=== PATIENT | male | born 1960 | race Caucasian/White ===

== ENCOUNTER → 2017-06-26 | Outpatient (CLI) | payer OTHER ==
[~2017-06-26] MED LIST: CIPRO500 MG PO; CIPROFLOXACIN500 MG PO; CYCLOBENZAPRINE5 M3 PO; IBU800 M1 PO; KEFLEX500 MG PO; LIALDA1.2 GM PO; METRONIDAZOLE500 MG PO; MOTRIN800 MG PO; NAPROSYN500 MG PO; NEXIUM20 MG PO; PREDNISONE10 MG PO; PRILOSEC40 MG PO; ULTRAM50 MG PO
== END | disposition home or self-care (01) ==
LOC: RAD 15:38
DX: R06.02 Shortness of breath (principal); J98.11 Atelectasis

== ENCOUNTER 2018-03-22 19:39 | Emergency (ER) | payer OTHER ==
[~2018-03-22] VITALS: Ht 172.7 cm; Wt 81.6 kg
[2018-03-22 19:40] VITALS: BP 148/53
[2018-03-22] MEDS ORDERED: DOXYCYCLINE100 M3 PO (19:56)
== END 2018-03-22 19:58 | disposition home or self-care (01) ==
LOC: ED 19:39
DX: S40.262A Insect bite (nonvenomous) of left shoulder, initial encounter (principal); Z79.899 Other long term (current) drug therapy; W57.XXXA Bitten or stung by nonvenomous insect and other nonvenomous arthropods, initial encounter; Y93.89 Activity, other specified; Y92.89 Other specified places as the place of occurrence of the external cause; Y99.9 Unspecified external cause status

== ENCOUNTER 2018-05-16 21:24 | Emergency (ER) | payer OTHER ==
[~2018-05-16] VITALS: Ht 172.7 cm; Wt 73.9 kg
[~2018-05-16 21:24] MED LIST changes: +DOXYCYCLINE100 M3 PO
[2018-05-16 21:27] VITALS: BP 157/94
== END 2018-05-16 23:56 | disposition home or self-care (01) ==
LOC: ED 21:24
DX: S01.91XA Laceration without foreign body of unspecified part of head, initial encounter (principal); Z79.899 Other long term (current) drug therapy; W18.30XA Fall on same level, unspecified, initial encounter; Y93.89 Activity, other specified; Y92.89 Other specified places as the place of occurrence of the external cause; Y99.8 Other external cause status

== ENCOUNTER → 2018-07-13 | Outpatient (CLI) | payer OTHER ==
[~2018-07-13] MED LIST changes: +KEFLEX500 M1 PO
== END | disposition home or self-care (01) ==
LOC: US 07-01 14:00 → LAB 13:53 → US 14:00
DX: D40.0 Neoplasm of uncertain behavior of prostate (principal); I10 Essential (primary) hypertension; N28.89 Other specified disorders of kidney and ureter

== ENCOUNTER → 2018-08-03 | Outpatient (CLI) | payer OTHER ==
[2018-08-03 17:42] LABS: ALBUMIN 3.6 gm/dl (3.1-4.5); BILIRUBIN, DIRECT 1.3 mg/dL (0.0-0.2)
[2018-08-04 08:07] LABS: HEPATITIS B SURFACE AG Negative (Negative); HEPATITIS C VIRUS ANTIBODY <0.1 s/co (0.0-0.9)
[2018-08-04 09:09] LABS: AFP TUMOR MARKER 002253 2.3 ng/mL (0.0-8.3)
[2018-08-05 16:07] LABS: STRIATIONAL ANTIBODIES 160184 Negative (Neg:<1:40)
== END | disposition home or self-care (01) ==
LOC: LAB 16:31
PROVIDERS: Nurse Practitioner
DX: R74.0 Nonspecific elevation of levels of transaminase and lactic acid dehydrogenase [LDH] (principal)

== ENCOUNTER 2018-08-14 19:29 | Emergency (ER) | payer OTHER ==
[~2018-08-14] VITALS: Ht 172.7 cm; Wt 73.9 kg
[~2018-08-14 19:29] MED LIST changes: -KEFLEX500 M1 PO
[2018-08-14 20:02] LABS: HEMATOCRIT 40.6 % (42.0-52.0); MEAN CELL VOLUME 96.9 fl (80.0-94.0); MEAN CORPUSCULAR HGB 33.4 pg (27.0-31.0); MEAN CORPUSCULAR HGB CONC 34.5 g/dl (33.0-37.0); MEAN PLATELET VOLUME 10.8 fl (9.6-12.3); PLATELET COUNT AUTOMATED 377 10*3/uL (130-400); RED BLOOD COUNT 4.19 10*6/uL (4.50-5.90); WHITE BLOOD COUNT 7.7 10*3/uL (4.8-10.8)
[2018-08-14 20:18] LABS: ALBUMIN 3.1 gm/dl (3.1-4.5); ALKALINE PHOSPHATASE 296 U/L (45-117); BUN 25 mg/dl (7-24); CHLORIDE 108 mmol/L (98-107); CREATININE 1.14 mg/dL (0.70-1.30); LIPASE 3603 U/L (73-393); POTASSIUM 3.7 mmol/L (3.5-5.1); SGOT/AST 39 IU/L (3-35); SGPT/ALT 51 U/L (12-78); SODIUM 142 mmol/L (136-145); TOTAL PROTEIN 7.7 gm/dL (6.4-8.2)
[2018-08-14 20:23] LABS: PLATELET SUFFICIENCY NORMAL (NORMAL); TOTAL CELLS COUNTED 100 #CELLS
[2018-08-14 22:11] VITALS: BP 156/90
== END 2018-08-14 22:47 | disposition short-term general hospital (02) ==
LOC: ED 19:29
PROVIDERS: Emergency Medicine
DX: K85.90 Acute pancreatitis without necrosis or infection, unspecified (principal); Z79.899 Other long term (current) drug therapy; Z79.1 Long term (current) use of non-steroidal anti-inflammatories (NSAID)

== ENCOUNTER 2018-10-09 10:47 | Emergency (ER) | payer OTHER ==
[~2018-10-09] VITALS: Ht 172.7 cm; Wt 76.2 kg
[2018-10-09 10:49] VITALS: BP 166/80
[2018-10-09] MEDS ORDERED: KEFLEX500 M1 PO (10:56)
== END 2018-10-09 11:46 | disposition home or self-care (01) ==
LOC: ED 10:47
DX: S61.011A Laceration without foreign body of right thumb without damage to nail, initial encounter (principal); R03.0 Elevated blood-pressure reading, without diagnosis of hypertension; Z79.2 Long term (current) use of antibiotics; Z79.899 Other long term (current) drug therapy; W26.0XXA Contact with knife, initial encounter; Y93.89 Activity, other specified; Y92.89 Other specified places as the place of occurrence of the external cause; Y99.8 Other external cause status

== ENCOUNTER → 2019-06-14 | Outpatient (CLI) | payer OTHER ==
[~2019-06-14] MED LIST changes: +KEFLEX500 M1 PO
[2019-06-14 08:27] LABS: BASO % 0.4 % (0.0-1.0); EOS # 0.1 10*3/uL (0.0-0.4); EOS % 1.9 % (1.0-4.0); HEMATOCRIT 32.4 % (42.0-52.0); HEMOGLOBIN 10.1 g/dl (14.0-18.0); LYMPH # 0.2 10*3/uL (1.3-4.4); LYMPH % 4.2 % (27.0-41.0); MEAN CELL VOLUME 100.9 fl (80.0-94.0); MEAN CORPUSCULAR HGB 31.5 pg (27.0-31.0); MEAN CORPUSCULAR HGB CONC 31.2 g/dl (33.0-37.0); MEAN PLATELET VOLUME 9.1 fl (9.6-12.3); MONO # 0.9 10*3/uL (0.1-1.0); MONO % 17.4 % (3.0-9.0); NEUT # 3.9 10*3/uL (2.3-7.9); NEUT % 75.5 % (47.0-73.0); PLATELET COUNT AUTOMATED 398 10*3/uL (130-400); RED BLOOD COUNT 3.21 10*6/uL (4.50-5.90); RED CELL DISTRI WIDTH 18.5 % (0-14.5); WHITE BLOOD COUNT 5.2 10*3/uL (4.8-10.8)
[2019-06-14 08:41] LABS: ALBUMIN 3.7 gm/dl (3.1-4.5); ALKALINE PHOSPHATASE 118 U/L (45-117); BUN 33 mg/dl (7-24); CHLORIDE 105 mmol/L (98-107); CHOLESTEROL 169 mg/dL (<200); CREATININE 1.27 mg/dL (0.70-1.30); GAMMA GLUTAMYL TRANSPEPTIDASE 21 U/L (15-85); HDL CHOLESTEROL 30 mg/dl (40-60); LDL CHOLESTEROL 95 mg/dL (9-159); SGOT/AST 13 IU/L (3-35); SGPT/ALT 26 U/L (12-78); SODIUM 137 mmol/L (136-145); TOTAL PROTEIN 7.2 gm/dL (6.4-8.2); TRIGLYCERIDES 218 mg/dl (<150); VLDL CHOLESTEROL 44 mg/dL (6-40)
== END | disposition home or self-care (01) ==
LOC: LAB 07:47
PROVIDERS: Nurse Practitioner Acute Care
DX: Z48.23 Encounter for aftercare following liver transplant (principal); Z41.8 Encounter for other procedures for purposes other than remedying health state; K76.9 Liver disease, unspecified; E61.2 Magnesium deficiency; Z94.4 Liver transplant status

== ENCOUNTER → 2019-06-17 | Outpatient (CLI) | payer OTHER ==
[~2019-06-17] MED LIST changes: +ACYCLOVIR400 MG PO; +APRISO0.375 GM PO; +ASPIRIN CHEWABL81 MG PO; +Lovenox40 MG/0.4 SC; +MAGNESIUM OXID400 MG PO; +MYCOPHENOLATE250 MG PO; +PREDNISONE5 MG PO; +PROGRAF1 M1 PO; +PROTONIX40 MG PO; +SEPTDS PO
[2019-06-17 08:09] LABS: BASO % 0.2 % (0.0-1.0); EOS # 0.1 10*3/uL (0.0-0.4); EOS % 2.6 % (1.0-4.0); HEMATOCRIT 33.4 % (42.0-52.0); HEMOGLOBIN 10.6 g/dl (14.0-18.0); LYMPH # 0.3 10*3/uL (1.3-4.4); LYMPH % 6.9 % (27.0-41.0); MEAN CELL VOLUME 101.2 fl (80.0-94.0); MEAN CORPUSCULAR HGB 32.1 pg (27.0-31.0); MEAN CORPUSCULAR HGB CONC 31.7 g/dl (33.0-37.0); MEAN PLATELET VOLUME 8.9 fl (9.6-12.3); MONO # 0.8 10*3/uL (0.1-1.0); MONO % 18.6 % (3.0-9.0); NEUT % 71.2 % (47.0-73.0); PLATELET COUNT AUTOMATED 384 10*3/uL (130-400); RED CELL DISTRI WIDTH 18.3 % (0-14.5); WHITE BLOOD COUNT 4.2 10*3/uL (4.8-10.8)
[2019-06-17 08:35] LABS: ALBUMIN 3.6 gm/dl (3.1-4.5); CREATININE 1.53 mg/dL (0.70-1.30); PHOSPHOROUS 3.1 mg/dL (2.5-4.9); POTASSIUM 4.3 mmol/L (3.5-5.1); TOTAL PROTEIN 7.1 gm/dL (6.4-8.2)
== END | disposition home or self-care (01) ==
LOC: LAB 07:42
PROVIDERS: Nurse Practitioner Acute Care
DX: Z41.8 Encounter for other procedures for purposes other than remedying health state (principal); Z48.23 Encounter for aftercare following liver transplant; E83.30 Disorder of phosphorus metabolism, unspecified; K76.9 Liver disease, unspecified; Z94.4 Liver transplant status

== ENCOUNTER → 2019-06-21 | Outpatient (CLI) | payer OTHER ==
[~2019-06-21] MED LIST changes: -ACYCLOVIR400 MG PO; -APRISO0.375 GM PO; -ASPIRIN CHEWABL81 MG PO; -Lovenox40 MG/0.4 SC; -MAGNESIUM OXID400 MG PO; -MYCOPHENOLATE250 MG PO; -PREDNISONE5 MG PO; -PROGRAF1 M1 PO; -PROTONIX40 MG PO; -SEPTDS PO
[2019-06-21 08:45] LABS: BASO % 0.2 % (0.0-1.0); EOS # 0.1 10*3/uL (0.0-0.4); HEMATOCRIT 34.8 % (42.0-52.0); HEMOGLOBIN 10.9 g/dl (14.0-18.0); LYMPH # 0.5 10*3/uL (1.3-4.4); LYMPH % 9.2 % (27.0-41.0); MEAN CELL VOLUME 101.8 fl (80.0-94.0); MEAN CORPUSCULAR HGB 31.9 pg (27.0-31.0); MEAN CORPUSCULAR HGB CONC 31.3 g/dl (33.0-37.0); MEAN PLATELET VOLUME 9.2 fl (9.6-12.3); MONO # 0.9 10*3/uL (0.1-1.0); MONO % 17.4 % (3.0-9.0); NEUT # 3.4 10*3/uL (2.3-7.9); NEUT % 70.4 % (47.0-73.0); PLATELET COUNT AUTOMATED 405 10*3/uL (130-400); RED BLOOD COUNT 3.42 10*6/uL (4.50-5.90); WHITE BLOOD COUNT 4.9 10*3/uL (4.8-10.8)
[2019-06-21 09:11] LABS: ALBUMIN 3.4 gm/dl (3.1-4.5); ALKALINE PHOSPHATASE 101 U/L (45-117); BUN 36 mg/dl (7-24); CHLORIDE 107 mmol/L (98-107); CREATININE 1.32 mg/dL (0.70-1.30); GAMMA GLUTAMYL TRANSPEPTIDASE 17 U/L (15-85); PHOSPHOROUS 2.8 mg/dL (2.5-4.9); POTASSIUM 4.6 mmol/L (3.5-5.1); SGOT/AST 15 IU/L (3-35); SGPT/ALT 31 U/L (12-78); SODIUM 140 mmol/L (136-145)
== END | disposition home or self-care (01) ==
LOC: LAB 01:09
PROVIDERS: Nurse Practitioner Acute Care
DX: Z48.23 Encounter for aftercare following liver transplant (principal); Z41.8 Encounter for other procedures for purposes other than remedying health state; K76.9 Liver disease, unspecified; E61.2 Magnesium deficiency; R73.02 Impaired glucose tolerance (oral); Z94.4 Liver transplant status

== ENCOUNTER → 2019-06-24 | Outpatient (CLI) | payer OTHER ==
[2019-06-24 08:36] LABS: BASO % 0.2 % (0.0-1.0); EOS # 0.1 10*3/uL (0.0-0.4); EOS % 1.9 % (1.0-4.0); HEMATOCRIT 33.4 % (42.0-52.0); HEMOGLOBIN 10.6 g/dl (14.0-18.0); LYMPH # 0.4 10*3/uL (1.3-4.4); LYMPH % 8.6 % (27.0-41.0); MEAN CELL VOLUME 101.5 fl (80.0-94.0); MEAN CORPUSCULAR HGB 32.2 pg (27.0-31.0); MEAN CORPUSCULAR HGB CONC 31.7 g/dl (33.0-37.0); MEAN PLATELET VOLUME 9.1 fl (9.6-12.3); MONO # 0.7 10*3/uL (0.1-1.0); MONO % 14.9 % (3.0-9.0); NEUT # 3.4 10*3/uL (2.3-7.9); NEUT % 73.8 % (47.0-73.0); PLATELET COUNT AUTOMATED 350 10*3/uL (130-400); RED BLOOD COUNT 3.29 10*6/uL (4.50-5.90); RED CELL DISTRI WIDTH 17.4 % (0-14.5); WHITE BLOOD COUNT 4.6 10*3/uL (4.8-10.8)
[2019-06-24 08:49] LABS: ALBUMIN 3.5 gm/dl (3.1-4.5); ALKALINE PHOSPHATASE 98 U/L (45-117); BUN 28 mg/dl (7-24); CHLORIDE 107 mmol/L (98-107); CREATININE 1.36 mg/dL (0.70-1.30); GAMMA GLUTAMYL TRANSPEPTIDASE 15 U/L (15-85); PHOSPHOROUS 3.1 mg/dL (2.5-4.9); POTASSIUM 4.1 mmol/L (3.5-5.1); SGOT/AST 13 IU/L (3-35); SGPT/ALT 35 U/L (12-78); SODIUM 139 mmol/L (136-145); TOTAL PROTEIN 6.9 gm/dL (6.4-8.2)
== END | disposition home or self-care (01) ==
LOC: LAB 07:58
PROVIDERS: Nurse Practitioner Acute Care
DX: Z94.4 Liver transplant status (principal)

== ENCOUNTER → 2019-06-29 | Outpatient (CLI) | payer OTHER ==
[2019-06-29 08:40] LABS: BASO % 0.2 % (0.0-1.0); EOS # 0.1 10*3/uL (0.0-0.4); EOS % 2.1 % (1.0-4.0); HEMATOCRIT 34.4 % (42.0-52.0); LYMPH # 0.5 10*3/uL (1.3-4.4); LYMPH % 9.5 % (27.0-41.0); MEAN CELL VOLUME 101.2 fl (80.0-94.0); MEAN CORPUSCULAR HGB 32.4 pg (27.0-31.0); MEAN PLATELET VOLUME 9.2 fl (9.6-12.3); MONO # 0.8 10*3/uL (0.1-1.0); MONO % 16.4 % (3.0-9.0); NEUT # 3.4 10*3/uL (2.3-7.9); NEUT % 70.7 % (47.0-73.0); PLATELET COUNT AUTOMATED 338 10*3/uL (130-400); RED CELL DISTRI WIDTH 16.9 % (0-14.5); WHITE BLOOD COUNT 4.8 10*3/uL (4.8-10.8)
[2019-06-29 09:48] LABS: ALBUMIN 3.6 gm/dl (3.1-4.5); BUN 31 mg/dl (7-24); CHLORIDE 104 mmol/L (98-107); GAMMA GLUTAMYL TRANSPEPTIDASE 15 U/L (15-85); PHOSPHOROUS 2.9 mg/dL (2.5-4.9); POTASSIUM 4.1 mmol/L (3.5-5.1); SGOT/AST 19 IU/L (3-35); SGPT/ALT 45 U/L (12-78); SODIUM 138 mmol/L (136-145)
[2019-06-29 09:50] LABS: ALKALINE PHOSPHATASE 100 U/L (45-117)
== END | disposition home or self-care (01) ==
LOC: LAB 06-28 03:09
PROVIDERS: Nurse Practitioner Acute Care
DX: Z94.4 Liver transplant status (principal)

== ENCOUNTER → 2019-07-01 | Outpatient (CLI) | payer MEDICAID ==
[~2019-07-01] MED LIST changes: +ACYCLOVIR400 MG PO; +APRISO0.375 GM PO; +ASPIRIN CHEWABL81 MG PO; +Lovenox40 MG/0.4 SC; +MAGNESIUM OXID400 MG PO; +MYCOPHENOLATE250 MG PO; +PREDNISONE5 MG PO; +PROGRAF1 M1 PO; +PROTONIX40 MG PO; +SEPTDS PO
== END | disposition home or self-care (01) ==
LOC: LAB 01:43
DX: Z94.4 Liver transplant status (principal)

== ENCOUNTER → 2019-07-05 | Outpatient (CLI) | payer MEDICAID ==
[2019-07-05 08:58] LABS: ALBUMIN 3.7 gm/dl (3.1-4.5); ALKALINE PHOSPHATASE 105 U/L (45-117); BUN 31 mg/dl (7-24); CHLORIDE 104 mmol/L (98-107); CREATININE 1.23 mg/dL (0.70-1.30); GAMMA GLUTAMYL TRANSPEPTIDASE 18 U/L (15-85); POTASSIUM 4.5 mmol/L (3.5-5.1); SGOT/AST 17 IU/L (3-35); SGPT/ALT 49 U/L (12-78); SODIUM 138 mmol/L (136-145); TOTAL PROTEIN 7.2 gm/dL (6.4-8.2)
[2019-07-05 09:07] LABS: BASO % 0.4 % (0.0-1.0); EOS # 0.1 10*3/uL (0.0-0.4); EOS % 2.1 % (1.0-4.0); HEMATOCRIT 36.3 % (42.0-52.0); HEMOGLOBIN 11.7 g/dl (14.0-18.0); LYMPH # 0.7 10*3/uL (1.3-4.4); MEAN CELL VOLUME 99.7 fl (80.0-94.0); MEAN CORPUSCULAR HGB 32.1 pg (27.0-31.0); MEAN CORPUSCULAR HGB CONC 32.2 g/dl (33.0-37.0); MEAN PLATELET VOLUME 9.3 fl (9.6-12.3); MONO # 0.8 10*3/uL (0.1-1.0); MONO % 16.7 % (3.0-9.0); NEUT # 3.1 10*3/uL (2.3-7.9); NEUT % 64.1 % (47.0-73.0); PLATELET COUNT AUTOMATED 370 10*3/uL (130-400); RED BLOOD COUNT 3.64 10*6/uL (4.50-5.90); RED CELL DISTRI WIDTH 16.2 % (0-14.5); WHITE BLOOD COUNT 4.9 10*3/uL (4.8-10.8)
== END | disposition home or self-care (01) ==
LOC: LAB 07:51
PROVIDERS: Nurse Practitioner Acute Care
DX: Z01.812 Encounter for preprocedural laboratory examination (principal); K76.9 Liver disease, unspecified; E61.2 Magnesium deficiency; R73.02 Impaired glucose tolerance (oral); Z48.23 Encounter for aftercare following liver transplant; Z94.4 Liver transplant status

== ENCOUNTER → 2019-07-08 | Outpatient (CLI) | payer MEDICAID ==
[2019-07-08 08:26] LABS: HEMATOCRIT 32.9 % (42.0-52.0); MEAN CELL VOLUME 98.8 fl (80.0-94.0); MEAN CORPUSCULAR HGB CONC 33.4 g/dl (33.0-37.0); MEAN PLATELET VOLUME 9.2 fl (9.6-12.3); PLATELET COUNT AUTOMATED 319 10*3/uL (130-400); RED BLOOD COUNT 3.33 10*6/uL (4.50-5.90); WHITE BLOOD COUNT 5.3 10*3/uL (4.8-10.8)
[2019-07-08 08:48] LABS: TOTAL CELLS COUNTED 100 #CELLS
[2019-07-08 08:49] LABS: PLATELET SUFFICIENCY NORMAL (NORMAL)
[2019-07-08 09:31] LABS: ALBUMIN 3.4 gm/dl (3.1-4.5); ALKALINE PHOSPHATASE 90 U/L (45-117); BUN 35 mg/dl (7-24); CHLORIDE 106 mmol/L (98-107); CREATININE 1.29 mg/dL (0.70-1.30); GAMMA GLUTAMYL TRANSPEPTIDASE 10 U/L (15-85); PHOSPHOROUS 2.8 mg/dL (2.5-4.9); POTASSIUM 4.1 mmol/L (3.5-5.1); SGPT/ALT 49 U/L (12-78); SODIUM 137 mmol/L (136-145); TOTAL PROTEIN 6.7 gm/dL (6.4-8.2)
[2019-07-08 09:37] LABS: SGOT/AST 20 IU/L (3-35)
== END | disposition home or self-care (01) ==
LOC: LAB 07:56
PROVIDERS: Nurse Practitioner Acute Care
DX: Z01.812 Encounter for preprocedural laboratory examination (principal); Z01.818 Encounter for other preprocedural examination; Z48.23 Encounter for aftercare following liver transplant; E83.30 Disorder of phosphorus metabolism, unspecified; R73.02 Impaired glucose tolerance (oral); K76.9 Liver disease, unspecified; Z41.8 Encounter for other procedures for purposes other than remedying health state; Z94.4 Liver transplant status

== ENCOUNTER → 2019-07-12 | Outpatient (CLI) | payer OTHER | END | disposition home or self-care (01) | LOC: LAB 07:41 | DX: Z94.4 Liver transplant status (principal) ==

== ENCOUNTER 2019-07-14 19:24 | Emergency (ER) | payer MEDICAID ==
[~2019-07-14] VITALS: Ht 172.7 cm; Wt 59.0 kg
--- NOTE | ~2019-07-14 | EKG ---
[place], [place] ELECTROCARDIOGRAM REPORT NAME: JOSEE CORTES UNIT #: [id number] ROOM: DOCTOR: EPIPHKASANDRA DRAFT REPORT BIRTHDATE: [birth year] [facility] Test Date: 2019-07-14 Test Time: 19:33:29 Pat Name: JOSEE CORTES Department: Room: Gender: Event Decorator: : 1960 Requested By: CHALINO WEBER Order Number: [id number] Reading MD: Milena Mei MD Measurements Intervals [place] Rate: 96 P: [place]: QRS: 24 QRSD: 73 T: 36 QT: 340 QTc: 430 Interpretive Statements Sinus rhythm Normal ECG Electronically Signed On 07-19-2019 17:51:40 PDT by Milena Mei MD CM:EKGRPT:ELECTROCARDIOGRAM REPORT 32 175 CHALINO COLEMAN DRAFT REPORT CHALINO WEBER DO
[~2019-07-14 19:24] MED LIST changes: -ACYCLOVIR400 MG PO; -APRISO0.375 GM PO; -ASPIRIN CHEWABL81 MG PO; -Lovenox40 MG/0.4 SC; -MAGNESIUM OXID400 MG PO; -MYCOPHENOLATE250 MG PO; -PREDNISONE5 MG PO; -PROGRAF1 M1 PO; -PROTONIX40 MG PO; -SEPTDS PO
[2019-07-14] MEDS ORDERED: ACYCLOVIR400 MG PO (19:57)
[2019-07-14] MEDS ORDERED: ASPIRIN CHEWABL81 MG PO (19:59)
[2019-07-14] MEDS ORDERED: APRISO0.375 GM PO (19:59)
[2019-07-14] MEDS ORDERED: Lovenox40 MG/0.4 SC (20:00)
[2019-07-14] MEDS ORDERED: MAGNESIUM OXID400 MG PO (20:01)
[2019-07-14] MEDS ORDERED: MYCOPHENOLATE250 MG PO (20:02)
[2019-07-14] MEDS ORDERED: PROTONIX40 MG PO (20:03)
[2019-07-14 20:04] LABS: BASO % 0.1 % (0.0-1.0); EOS # 0.1 10*3/uL (0.0-0.4); EOS % 0.6 % (1.0-4.0); HEMATOCRIT 22.7 % (42.0-52.0); HEMOGLOBIN 7.2 g/dl (14.0-18.0); LYMPH # 0.8 10*3/uL (1.3-4.4); LYMPH % 9.5 % (27.0-41.0); MEAN CELL VOLUME 105.1 fl (80.0-94.0); MEAN CORPUSCULAR HGB 33.3 pg (27.0-31.0); MEAN CORPUSCULAR HGB CONC 31.7 g/dl (33.0-37.0); MEAN PLATELET VOLUME 9.4 fl (9.6-12.3); MONO # 0.6 10*3/uL (0.1-1.0); MONO % 6.7 % (3.0-9.0); NEUT # 6.7 10*3/uL (2.3-7.9); NEUT % 81.8 % (47.0-73.0); PLATELET COUNT AUTOMATED 321 10*3/uL (130-400); RED BLOOD COUNT 2.16 10*6/uL (4.50-5.90); RED CELL DISTRI WIDTH 16.1 % (0-14.5); WHITE BLOOD COUNT 8.2 10*3/uL (4.8-10.8)
[2019-07-14] MEDS ORDERED: PREDNISONE5 MG PO (20:04)
[2019-07-14] MEDS ORDERED: SEPTDS PO (20:07)
[2019-07-14] MEDS ORDERED: PROGRAF1 M1 PO (20:08)
[2019-07-14 20:17] LABS: ACT PARTIAL THROMBO TIME 26.3 SECONDS (20.0-32.1); INTERNATIONAL NORM RATIO 1.1 (2.0-3.5)
[2019-07-14 20:22] LABS: CREATININE 1.51 mg/dL (0.70-1.30); POTASSIUM 4.5 mmol/L (3.5-5.1); TOTAL PROTEIN 5.7 gm/dL (6.4-8.2); TROPONIN I 0.021 ng/ml (<0.045)
[2019-07-14 23:50] VITALS: BP 107/60
[2019-07-15 00:04] VITALS: BP 105/64
[2019-07-15 00:21] VITALS: BP 110/60
== END 2019-07-14 23:00 | disposition short-term general hospital (02) ==
LOC: ED 19:24
PROVIDERS: Emergency Medicine
DX: K92.2 Gastrointestinal hemorrhage, unspecified (principal); R42 Dizziness and giddiness; Z94.4 Liver transplant status; Z79.899 Other long term (current) drug therapy; Z79.82 Long term (current) use of aspirin; Z85.05 Personal history of malignant neoplasm of liver

== ENCOUNTER → 2019-07-26 | Outpatient (CLI) | payer MEDICAID ==
[~2019-07-26] MED LIST changes: +ACYCLOVIR400 MG PO; +APRISO0.375 GM PO; +ASPIRIN CHEWABL81 MG PO; +Lovenox40 MG/0.4 SC; +MAGNESIUM OXID400 MG PO; +MYCOPHENOLATE250 MG PO; +PREDNISONE5 MG PO; +PROGRAF1 M1 PO; +PROTONIX40 MG PO; +SEPTDS PO
== END | disposition home or self-care (01) ==
LOC: LAB 07:41
DX: Z94.4 Liver transplant status (principal)

== ENCOUNTER → 2019-07-29 | Outpatient (CLI) | payer OTHER ==
[2019-07-29 08:15] LABS: BASO % 0.5 % (0.0-1.0); EOS # 0.4 10*3/uL (0.0-0.4); EOS % 4.7 % (1.0-4.0); HEMATOCRIT 35.8 % (42.0-52.0); HEMOGLOBIN 11.4 g/dl (14.0-18.0); LYMPH # 1.9 10*3/uL (1.3-4.4); LYMPH % 24.2 % (27.0-41.0); MEAN CORPUSCULAR HGB 29.9 pg (27.0-31.0); MEAN CORPUSCULAR HGB CONC 31.8 g/dl (33.0-37.0); MONO # 1.1 10*3/uL (0.1-1.0); MONO % 13.1 % (3.0-9.0); NEUT # 4.6 10*3/uL (2.3-7.9); NEUT % 57.3 % (47.0-73.0); PLATELET COUNT AUTOMATED 492 10*3/uL (130-400); RED BLOOD COUNT 3.81 10*6/uL (4.50-5.90); RED CELL DISTRI WIDTH 17.5 % (0-14.5)
[2019-07-29 08:38] LABS: ALKALINE PHOSPHATASE 113 U/L (45-117); BUN 23 mg/dl (7-24); CHLORIDE 105 mmol/L (98-107); CHOLESTEROL 162 mg/dL (<200); CREATININE 1.23 mg/dL (0.70-1.30); GAMMA GLUTAMYL TRANSPEPTIDASE 37 U/L (15-85); HDL CHOLESTEROL 38 mg/dl (40-60); LDL CHOLESTEROL 100 mg/dL (9-159); PHOSPHOROUS 2.1 mg/dL (2.5-4.9); SGOT/AST 27 IU/L (3-35); SGPT/ALT 55 U/L (12-78); SODIUM 138 mmol/L (136-145); TOTAL PROTEIN 6.5 gm/dL (6.4-8.2); TRIGLYCERIDES 120 mg/dl (<150); VLDL CHOLESTEROL 24 mg/dL (6-40)
== END | disposition home or self-care (01) ==
LOC: LAB 07:48
PROVIDERS: Nurse Practitioner Acute Care
DX: Z01.812 Encounter for preprocedural laboratory examination (principal); Z01.818 Encounter for other preprocedural examination; Z48.23 Encounter for aftercare following liver transplant; Z41.8 Encounter for other procedures for purposes other than remedying health state; Z94.4 Liver transplant status; K76.9 Liver disease, unspecified; E61.2 Magnesium deficiency; R73.02 Impaired glucose tolerance (oral)

== ENCOUNTER → 2019-08-02 | Outpatient (CLI) | payer OTHER ==
[2019-08-02 09:08] LABS: BASO % 0.7 % (0.0-1.0); EOS # 0.4 10*3/uL (0.0-0.4); EOS % 6.7 % (1.0-4.0); HEMATOCRIT 36.8 % (42.0-52.0); HEMOGLOBIN 11.7 g/dl (14.0-18.0); LYMPH # 1.5 10*3/uL (1.3-4.4); LYMPH % 25.7 % (27.0-41.0); MEAN CELL VOLUME 93.6 fl (80.0-94.0); MEAN CORPUSCULAR HGB 29.8 pg (27.0-31.0); MEAN CORPUSCULAR HGB CONC 31.8 g/dl (33.0-37.0); MONO # 0.9 10*3/uL (0.1-1.0); MONO % 15.5 % (3.0-9.0); NEUT # 2.9 10*3/uL (2.3-7.9); PLATELET COUNT AUTOMATED 424 10*3/uL (130-400); RED BLOOD COUNT 3.93 10*6/uL (4.50-5.90); RED CELL DISTRI WIDTH 17.1 % (0-14.5); WHITE BLOOD COUNT 5.7 10*3/uL (4.8-10.8)
[2019-08-02 09:24] LABS: ALBUMIN 3.1 gm/dl (3.1-4.5); ALKALINE PHOSPHATASE 149 U/L (45-117); BUN 28 mg/dl (7-24); CHLORIDE 105 mmol/L (98-107); CREATININE 1.19 mg/dL (0.70-1.30); GAMMA GLUTAMYL TRANSPEPTIDASE 81 U/L (15-85); PHOSPHOROUS 2.9 mg/dL (2.5-4.9); POTASSIUM 3.7 mmol/L (3.5-5.1); SGOT/AST 75 IU/L (3-35); SGPT/ALT 124 U/L (12-78); SODIUM 137 mmol/L (136-145); TOTAL PROTEIN 6.8 gm/dL (6.4-8.2)
== END | disposition home or self-care (01) ==
LOC: LAB 08:07
PROVIDERS: Nurse Practitioner Acute Care
DX: Z48.23 Encounter for aftercare following liver transplant (principal); Z41.8 Encounter for other procedures for purposes other than remedying health state; K76.9 Liver disease, unspecified; E61.2 Magnesium deficiency; R73.09 Other abnormal glucose

== ENCOUNTER → 2019-08-11 | Outpatient (CLI) | payer OTHER ==
[2019-08-11 08:49] LABS: BASO # 0.1 10*3/uL (0.0-0.1); BASO % 0.7 % (0.0-1.0); EOS # 0.5 10*3/uL (0.0-0.4); EOS % 6.6 % (1.0-4.0); HEMATOCRIT 36.9 % (42.0-52.0); HEMOGLOBIN 11.8 g/dl (14.0-18.0); LYMPH # 1.7 10*3/uL (1.3-4.4); LYMPH % 22.7 % (27.0-41.0); MEAN CELL VOLUME 96.1 fl (80.0-94.0); MEAN CORPUSCULAR HGB 30.7 pg (27.0-31.0); MEAN PLATELET VOLUME 9.6 fl (9.6-12.3); MONO % 13.7 % (3.0-9.0); NEUT # 4.2 10*3/uL (2.3-7.9); NEUT % 55.6 % (47.0-73.0); PLATELET COUNT AUTOMATED 336 10*3/uL (130-400); RED BLOOD COUNT 3.84 10*6/uL (4.50-5.90); RED CELL DISTRI WIDTH 18.2 % (0-14.5); WHITE BLOOD COUNT 7.6 10*3/uL (4.8-10.8)
[2019-08-11 09:23] LABS: ALBUMIN 3.2 gm/dl (3.1-4.5); BUN 23 mg/dl (7-24); CHLORIDE 108 mmol/L (98-107); CREATININE 1.07 mg/dL (0.70-1.30); GAMMA GLUTAMYL TRANSPEPTIDASE 330 U/L (15-85); PHOSPHOROUS 3.4 mg/dL (2.5-4.9); POTASSIUM 3.7 mmol/L (3.5-5.1); SGOT/AST 453 IU/L (3-35); SGPT/ALT 792 U/L (12-78); SODIUM 140 mmol/L (136-145); TOTAL PROTEIN 6.8 gm/dL (6.4-8.2)
[2019-08-11 09:25] LABS: ALKALINE PHOSPHATASE 353 U/L (45-117)
== END | disposition home or self-care (01) ==
LOC: LAB 07:53
PROVIDERS: Nurse Practitioner Acute Care
DX: Z94.4 Liver transplant status (principal)

== ENCOUNTER → 2019-08-16 | Outpatient (CLI) | payer OTHER ==
[2019-08-16 09:15] LABS: BASO % 0.2 % (0.0-1.0); EOS % 0.1 % (1.0-4.0); HEMATOCRIT 39.4 % (42.0-52.0); HEMOGLOBIN 12.5 g/dl (14.0-18.0); LYMPH # 1.8 10*3/uL (1.3-4.4); LYMPH % 14.3 % (27.0-41.0); MEAN CELL VOLUME 96.1 fl (80.0-94.0); MEAN CORPUSCULAR HGB 30.5 pg (27.0-31.0); MEAN CORPUSCULAR HGB CONC 31.7 g/dl (33.0-37.0); MEAN PLATELET VOLUME 9.6 fl (9.6-12.3); MONO # 1.1 10*3/uL (0.1-1.0); NEUT # 9.2 10*3/uL (2.3-7.9); NEUT % 75.3 % (47.0-73.0); PLATELET COUNT AUTOMATED 468 10*3/uL (130-400); RED CELL DISTRI WIDTH 18.5 % (0-14.5); WHITE BLOOD COUNT 12.2 10*3/uL (4.8-10.8)
[2019-08-16 09:18] LABS: ALBUMIN 3.1 gm/dl (3.1-4.5); BUN 33 mg/dl (7-24); CHLORIDE 110 mmol/L (98-107); CHOLESTEROL 192 mg/dL (<200); CREATININE 1.02 mg/dL (0.70-1.30); GAMMA GLUTAMYL TRANSPEPTIDASE 379 U/L (15-85); HDL CHOLESTEROL 47 mg/dl (40-60); LDL CHOLESTEROL 123 mg/dL (9-159); SGOT/AST 224 IU/L (3-35); SGPT/ALT 726 U/L (12-78); SODIUM 141 mmol/L (136-145); TOTAL PROTEIN 7.1 gm/dL (6.4-8.2); TRIGLYCERIDES 109 mg/dl (<150); VLDL CHOLESTEROL 22 mg/dL (6-40)
[2019-08-16 09:19] LABS: ALKALINE PHOSPHATASE 326 U/L (45-117)
== END | disposition home or self-care (01) ==
LOC: LAB 07:48
PROVIDERS: Nurse Practitioner Acute Care
DX: Z94.4 Liver transplant status (principal)

== ENCOUNTER → 2019-08-19 | Outpatient (CLI) | payer OTHER ==
[2019-08-19 08:11] LABS: BASO % 0.1 % (0.0-1.0); HEMATOCRIT 37.5 % (42.0-52.0); LYMPH # 1.8 10*3/uL (1.3-4.4); LYMPH % 14.1 % (27.0-41.0); MEAN CELL VOLUME 97.2 fl (80.0-94.0); MEAN CORPUSCULAR HGB 31.1 pg (27.0-31.0); MEAN PLATELET VOLUME 9.3 fl (9.6-12.3); MONO # 1.2 10*3/uL (0.1-1.0); MONO % 9.4 % (3.0-9.0); NEUT # 9.6 10*3/uL (2.3-7.9); NEUT % 74.8 % (47.0-73.0); PLATELET COUNT AUTOMATED 431 10*3/uL (130-400); RED BLOOD COUNT 3.86 10*6/uL (4.50-5.90); RED CELL DISTRI WIDTH 18.6 % (0-14.5); WHITE BLOOD COUNT 12.9 10*3/uL (4.8-10.8)
[2019-08-19 08:44] LABS: ALBUMIN 2.9 gm/dl (3.1-4.5); ALKALINE PHOSPHATASE 264 U/L (45-117); BUN 35 mg/dl (7-24); CHLORIDE 110 mmol/L (98-107); CREATININE 1.09 mg/dL (0.70-1.30); GAMMA GLUTAMYL TRANSPEPTIDASE 400 U/L (15-85); PHOSPHOROUS 3.1 mg/dL (2.5-4.9); POTASSIUM 4.1 mmol/L (3.5-5.1); SGOT/AST 168 IU/L (3-35); SGPT/ALT 578 U/L (12-78); SODIUM 142 mmol/L (136-145); TOTAL PROTEIN 6.5 gm/dL (6.4-8.2)
== END | disposition home or self-care (01) ==
LOC: LAB 07:43
PROVIDERS: Nurse Practitioner Acute Care
DX: E61.2 Magnesium deficiency (principal); K76.9 Liver disease, unspecified; R73.02 Impaired glucose tolerance (oral); Z94.4 Liver transplant status

== ENCOUNTER → 2019-08-23 | Outpatient (CLI) | payer OTHER ==
[2019-08-23 08:15] LABS: HEMATOCRIT 34.1 % (42.0-52.0); MEAN CELL VOLUME 98.3 fl (80.0-94.0); MEAN CORPUSCULAR HGB 31.7 pg (27.0-31.0); MEAN CORPUSCULAR HGB CONC 32.3 g/dl (33.0-37.0); MEAN PLATELET VOLUME 10.1 fl (9.6-12.3); PLATELET COUNT AUTOMATED 347 10*3/uL (130-400); RED BLOOD COUNT 3.47 10*6/uL (4.50-5.90); RED CELL DISTRI WIDTH 18.7 % (0-14.5); WHITE BLOOD COUNT 15.5 10*3/uL (4.8-10.8)
[2019-08-23 08:30] LABS: ALBUMIN 2.7 gm/dl (3.1-4.5); ALKALINE PHOSPHATASE 197 U/L (45-117); BUN 40 mg/dl (7-24); CHLORIDE 110 mmol/L (98-107); CREATININE 1.04 mg/dL (0.70-1.30); GAMMA GLUTAMYL TRANSPEPTIDASE 451 U/L (15-85); PHOSPHOROUS 2.7 mg/dL (2.5-4.9); POTASSIUM 5.1 mmol/L (3.5-5.1); SGOT/AST 135 IU/L (3-35); SGPT/ALT 542 U/L (12-78); SODIUM 140 mmol/L (136-145); TOTAL PROTEIN 5.7 gm/dL (6.4-8.2)
[2019-08-23 09:53] LABS: PLATELET SUFFICIENCY NORMAL (NORMAL); TOTAL CELLS COUNTED 100 #CELLS
== END | disposition home or self-care (01) ==
LOC: LAB 07:48
PROVIDERS: Nurse Practitioner Acute Care
DX: Z48.23 Encounter for aftercare following liver transplant (principal); Z41.8 Encounter for other procedures for purposes other than remedying health state; K76.9 Liver disease, unspecified; E61.2 Magnesium deficiency; R73.02 Impaired glucose tolerance (oral); Z94.4 Liver transplant status

== ENCOUNTER → 2019-08-30 | Outpatient (CLI) | payer MEDICAID ==
[2019-08-30 09:42] LABS: ALKALINE PHOSPHATASE 212 U/L (45-117); BUN 28 mg/dl (7-24); CHLORIDE 107 mmol/L (98-107); GAMMA GLUTAMYL TRANSPEPTIDASE 409 U/L (15-85); PHOSPHOROUS 2.9 mg/dL (2.5-4.9); POTASSIUM 5.1 mmol/L (3.5-5.1); SGOT/AST 134 IU/L (3-35); SGPT/ALT 420 U/L (12-78); SODIUM 138 mmol/L (136-145); TOTAL PROTEIN 6.3 gm/dL (6.4-8.2)
[2019-08-30 09:47] LABS: BASO % 0.1 % (0.0-1.0); EOS % 0.1 % (1.0-4.0); HEMATOCRIT 28.9 % (42.0-52.0); LYMPH # 1.3 10*3/uL (1.3-4.4); LYMPH % 9.4 % (27.0-41.0); MEAN CELL VOLUME 100.3 fl (80.0-94.0); MEAN CORPUSCULAR HGB 31.3 pg (27.0-31.0); MEAN CORPUSCULAR HGB CONC 31.1 g/dl (33.0-37.0); NEUT # 11.7 10*3/uL (2.3-7.9); NEUT % 82.8 % (47.0-73.0); PLATELET COUNT AUTOMATED 361 10*3/uL (130-400); RED BLOOD COUNT 2.88 10*6/uL (4.50-5.90); RED CELL DISTRI WIDTH 17.6 % (0-14.5); WHITE BLOOD COUNT 14.1 10*3/uL (4.8-10.8)
== END | disposition home or self-care (01) ==
LOC: LAB 08:02
PROVIDERS: Nurse Practitioner Acute Care
DX: Z94.4 Liver transplant status (principal)

== ENCOUNTER → 2019-09-01 | Outpatient (CLI) | payer MEDICAID ==
[2019-09-01 08:19] LABS: BASO % 0.1 % (0.0-1.0); EOS % 0.1 % (1.0-4.0); HEMATOCRIT 29.9 % (42.0-52.0); HEMOGLOBIN 9.3 g/dl (14.0-18.0); LYMPH # 2.4 10*3/uL (1.3-4.4); LYMPH % 17.7 % (27.0-41.0); MEAN CELL VOLUME 99.7 fl (80.0-94.0); MEAN CORPUSCULAR HGB CONC 31.1 g/dl (33.0-37.0); MEAN PLATELET VOLUME 9.7 fl (9.6-12.3); MONO # 1.1 10*3/uL (0.1-1.0); MONO % 7.8 % (3.0-9.0); NEUT # 9.9 10*3/uL (2.3-7.9); NEUT % 73.9 % (47.0-73.0); PLATELET COUNT AUTOMATED 373 10*3/uL (130-400); RED CELL DISTRI WIDTH 17.2 % (0-14.5); WHITE BLOOD COUNT 13.4 10*3/uL (4.8-10.8)
[2019-09-01 08:40] LABS: ALBUMIN 3.1 gm/dl (3.1-4.5); ALKALINE PHOSPHATASE 183 U/L (45-117); BUN 35 mg/dl (7-24); CHLORIDE 109 mmol/L (98-107); CREATININE 1.23 mg/dL (0.70-1.30); GAMMA GLUTAMYL TRANSPEPTIDASE 370 U/L (15-85); PHOSPHOROUS 2.5 mg/dL (2.5-4.9); POTASSIUM 4.4 mmol/L (3.5-5.1); SGOT/AST 65 IU/L (3-35); SGPT/ALT 283 U/L (12-78); SODIUM 141 mmol/L (136-145); TOTAL PROTEIN 6.3 gm/dL (6.4-8.2)
== END | disposition home or self-care (01) ==
LOC: LAB 07:49
PROVIDERS: Nurse Practitioner Acute Care
DX: E61.2 Magnesium deficiency (principal); R73.02 Impaired glucose tolerance (oral); K76.9 Liver disease, unspecified; Z94.4 Liver transplant status; Z48.23 Encounter for aftercare following liver transplant

== ENCOUNTER → 2019-09-06 | Outpatient (CLI) | payer MEDICAID ==
[2019-09-06 09:01] LABS: BASO % 0.1 % (0.0-1.0); EOS # 0.1 10*3/uL (0.0-0.4); EOS % 0.7 % (1.0-4.0); HEMATOCRIT 29.6 % (42.0-52.0); HEMOGLOBIN 8.9 g/dl (14.0-18.0); LYMPH # 2.2 10*3/uL (1.3-4.4); LYMPH % 22.7 % (27.0-41.0); MEAN CORPUSCULAR HGB 29.5 pg (27.0-31.0); MEAN CORPUSCULAR HGB CONC 30.1 g/dl (33.0-37.0); MEAN PLATELET VOLUME 9.6 fl (9.6-12.3); MONO # 0.9 10*3/uL (0.1-1.0); MONO % 9.2 % (3.0-9.0); NEUT # 6.3 10*3/uL (2.3-7.9); NEUT % 66.7 % (47.0-73.0); PLATELET COUNT AUTOMATED 432 10*3/uL (130-400); RED BLOOD COUNT 3.02 10*6/uL (4.50-5.90); RED CELL DISTRI WIDTH 16.7 % (0-14.5); WHITE BLOOD COUNT 9.5 10*3/uL (4.8-10.8)
[2019-09-06 09:14] LABS: ALBUMIN 2.8 gm/dl (3.1-4.5); ALKALINE PHOSPHATASE 161 U/L (45-117); BUN 41 mg/dl (7-24); CHLORIDE 113 mmol/L (98-107); CREATININE 1.13 mg/dL (0.70-1.30); PHOSPHOROUS 2.3 mg/dL (2.5-4.9); SGOT/AST 61 IU/L (3-35); SGPT/ALT 206 U/L (12-78); SODIUM 144 mmol/L (136-145); TOTAL PROTEIN 5.7 gm/dL (6.4-8.2)
[2019-09-06 09:15] LABS: GAMMA GLUTAMYL TRANSPEPTIDASE 353 U/L (15-85)
== END | disposition home or self-care (01) ==
LOC: LAB 07:46
PROVIDERS: Nurse Practitioner Acute Care
DX: Z94.4 Liver transplant status (principal)

== ENCOUNTER → 2019-09-09 | Outpatient (CLI) | payer MEDICAID ==
[2019-09-09 08:13] LABS: EOS # 0.1 10*3/uL (0.0-0.4); EOS % 0.9 % (1.0-4.0); HEMATOCRIT 28.1 % (42.0-52.0); HEMOGLOBIN 8.8 g/dl (14.0-18.0); LYMPH # 1.9 10*3/uL (1.3-4.4); LYMPH % 21.2 % (27.0-41.0); MEAN CELL VOLUME 97.2 fl (80.0-94.0); MEAN CORPUSCULAR HGB 30.4 pg (27.0-31.0); MEAN CORPUSCULAR HGB CONC 31.3 g/dl (33.0-37.0); MEAN PLATELET VOLUME 9.1 fl (9.6-12.3); MONO # 0.8 10*3/uL (0.1-1.0); MONO % 8.9 % (3.0-9.0); NEUT % 68.2 % (47.0-73.0); PLATELET COUNT AUTOMATED 368 10*3/uL (130-400); RED BLOOD COUNT 2.89 10*6/uL (4.50-5.90); RED CELL DISTRI WIDTH 16.6 % (0-14.5); WHITE BLOOD COUNT 8.9 10*3/uL (4.8-10.8)
[2019-09-09 08:45] LABS: ALBUMIN 2.8 gm/dl (3.1-4.5); BUN 35 mg/dl (7-24); CHLORIDE 113 mmol/L (98-107); CREATININE 1.16 mg/dL (0.70-1.30); GAMMA GLUTAMYL TRANSPEPTIDASE 337 U/L (15-85); POTASSIUM 4.1 mmol/L (3.5-5.1); SGOT/AST 48 IU/L (3-35); SGPT/ALT 184 U/L (12-78); SODIUM 145 mmol/L (136-145)
[2019-09-09 08:49] LABS: ALKALINE PHOSPHATASE 150 U/L (45-117); PHOSPHOROUS 2.2 mg/dL (2.5-4.9); TOTAL PROTEIN 5.7 gm/dL (6.4-8.2)
== END | disposition home or self-care (01) ==
LOC: LAB 07:45
PROVIDERS: Nurse Practitioner Acute Care
DX: Z94.4 Liver transplant status (principal)

== ENCOUNTER → 2019-09-13 | Outpatient (CLI) | payer MEDICAID ==
[2019-09-13 08:17] LABS: EOS # 0.1 10*3/uL (0.0-0.4); HEMOGLOBIN 9.7 g/dl (14.0-18.0); LYMPH # 1.5 10*3/uL (1.3-4.4); LYMPH % 18.6 % (27.0-41.0); MEAN CELL VOLUME 96.4 fl (80.0-94.0); MEAN CORPUSCULAR HGB 29.2 pg (27.0-31.0); MEAN CORPUSCULAR HGB CONC 30.3 g/dl (33.0-37.0); MEAN PLATELET VOLUME 9.5 fl (9.6-12.3); MONO # 0.9 10*3/uL (0.1-1.0); MONO % 10.5 % (3.0-9.0); NEUT # 5.6 10*3/uL (2.3-7.9); NEUT % 68.4 % (47.0-73.0); PLATELET COUNT AUTOMATED 396 10*3/uL (130-400); RED BLOOD COUNT 3.32 10*6/uL (4.50-5.90); RED CELL DISTRI WIDTH 16.2 % (0-14.5); WHITE BLOOD COUNT 8.1 10*3/uL (4.8-10.8)
[2019-09-13 08:37] LABS: BUN 29 mg/dl (7-24); CHLORIDE 110 mmol/L (98-107); CREATININE 1.11 mg/dL (0.70-1.30); GAMMA GLUTAMYL TRANSPEPTIDASE 314 U/L (15-85); PHOSPHOROUS 2.3 mg/dL (2.5-4.9); POTASSIUM 4.1 mmol/L (3.5-5.1); SGOT/AST 47 IU/L (3-35); SGPT/ALT 141 U/L (12-78); SODIUM 143 mmol/L (136-145); TOTAL PROTEIN 5.9 gm/dL (6.4-8.2)
[2019-09-13 08:38] LABS: ALKALINE PHOSPHATASE 145 U/L (45-117)
== END | disposition home or self-care (01) ==
LOC: LAB 07:46
PROVIDERS: Nurse Practitioner Acute Care
DX: Z94.4 Liver transplant status (principal)

== ENCOUNTER → 2019-09-16 | Outpatient (CLI) | payer MEDICAID ==
[2019-09-16 08:50] LABS: EOS % 0.5 % (1.0-4.0); HEMATOCRIT 28.9 % (42.0-52.0); HEMOGLOBIN 8.6 g/dl (14.0-18.0); LYMPH # 1.7 10*3/uL (1.3-4.4); LYMPH % 19.4 % (27.0-41.0); MEAN CELL VOLUME 94.8 fl (80.0-94.0); MEAN CORPUSCULAR HGB 28.2 pg (27.0-31.0); MEAN CORPUSCULAR HGB CONC 29.8 g/dl (33.0-37.0); MEAN PLATELET VOLUME 9.7 fl (9.6-12.3); MONO % 11.5 % (3.0-9.0); NEUT # 5.9 10*3/uL (2.3-7.9); NEUT % 67.5 % (47.0-73.0); PLATELET COUNT AUTOMATED 385 10*3/uL (130-400); RED BLOOD COUNT 3.05 10*6/uL (4.50-5.90); WHITE BLOOD COUNT 8.8 10*3/uL (4.8-10.8)
[2019-09-16 09:16] LABS: ALBUMIN 2.9 gm/dl (3.1-4.5); ALKALINE PHOSPHATASE 134 U/L (45-117); BUN 33 mg/dl (7-24); CHLORIDE 109 mmol/L (98-107); GAMMA GLUTAMYL TRANSPEPTIDASE 271 U/L (15-85); PHOSPHOROUS 2.9 mg/dL (2.5-4.9); SGOT/AST 37 IU/L (3-35); SGPT/ALT 115 U/L (12-78); SODIUM 143 mmol/L (136-145); TOTAL PROTEIN 5.8 gm/dL (6.4-8.2)
== END | disposition home or self-care (01) ==
LOC: LAB 08:04
PROVIDERS: Nurse Practitioner Acute Care
DX: Z01.818 Encounter for other preprocedural examination (principal); Z41.8 Encounter for other procedures for purposes other than remedying health state; Z48.23 Encounter for aftercare following liver transplant; K76.9 Liver disease, unspecified; R73.02 Impaired glucose tolerance (oral); Z94.4 Liver transplant status

== ENCOUNTER → 2019-09-20 | Outpatient (CLI) | payer MEDICAID ==
[2019-09-20 08:23] LABS: BASO % 0.1 % (0.0-1.0); EOS % 0.5 % (1.0-4.0); HEMATOCRIT 32.5 % (42.0-52.0); HEMOGLOBIN 9.8 g/dl (14.0-18.0); LYMPH # 1.8 10*3/uL (1.3-4.4); LYMPH % 21.5 % (27.0-41.0); MEAN CELL VOLUME 93.1 fl (80.0-94.0); MEAN CORPUSCULAR HGB 28.1 pg (27.0-31.0); MEAN CORPUSCULAR HGB CONC 30.2 g/dl (33.0-37.0); MEAN PLATELET VOLUME 9.5 fl (9.6-12.3); NEUT # 5.2 10*3/uL (2.3-7.9); NEUT % 63.1 % (47.0-73.0); PLATELET COUNT AUTOMATED 422 10*3/uL (130-400); RED BLOOD COUNT 3.49 10*6/uL (4.50-5.90); RED CELL DISTRI WIDTH 15.7 % (0-14.5); WHITE BLOOD COUNT 8.2 10*3/uL (4.8-10.8)
[2019-09-20 08:49] LABS: ALKALINE PHOSPHATASE 123 U/L (45-117); BUN 25 mg/dl (7-24); CHLORIDE 108 mmol/L (98-107); CREATININE 1.25 mg/dL (0.70-1.30); GAMMA GLUTAMYL TRANSPEPTIDASE 256 U/L (15-85); PHOSPHOROUS 1.9 mg/dL (2.5-4.9); SGOT/AST 40 IU/L (3-35); SGPT/ALT 110 U/L (12-78); SODIUM 142 mmol/L (136-145)
== END | disposition home or self-care (01) ==
LOC: LAB 00:58
PROVIDERS: Nurse Practitioner Acute Care
DX: Z48.23 Encounter for aftercare following liver transplant (principal); Z41.8 Encounter for other procedures for purposes other than remedying health state; E83.30 Disorder of phosphorus metabolism, unspecified; K76.9 Liver disease, unspecified; R73.02 Impaired glucose tolerance (oral); Z94.4 Liver transplant status

== ENCOUNTER → 2019-09-24 | Outpatient (CLI) | payer MEDICAID ==
[2019-09-24 08:09] LABS: HEMATOCRIT 33.2 % (42.0-52.0); HEMOGLOBIN 9.9 g/dl (14.0-18.0); MEAN CELL VOLUME 92.2 fl (80.0-94.0); MEAN CORPUSCULAR HGB 27.5 pg (27.0-31.0); MEAN CORPUSCULAR HGB CONC 29.8 g/dl (33.0-37.0); MEAN PLATELET VOLUME 9.4 fl (9.6-12.3); PLATELET COUNT AUTOMATED 407 10*3/uL (130-400); RED CELL DISTRI WIDTH 15.6 % (0-14.5); WHITE BLOOD COUNT 6.8 10*3/uL (4.8-10.8)
[2019-09-24 08:27] LABS: ALBUMIN 3.2 gm/dl (3.1-4.5); BUN 26 mg/dl (7-24); CHLORIDE 111 mmol/L (98-107); CREATININE 1.18 mg/dL (0.70-1.30); GAMMA GLUTAMYL TRANSPEPTIDASE 251 U/L (15-85); PHOSPHOROUS 2.1 mg/dL (2.5-4.9); POTASSIUM 4.2 mmol/L (3.5-5.1); SGOT/AST 50 IU/L (3-35); SGPT/ALT 100 U/L (12-78); SODIUM 142 mmol/L (136-145); TOTAL PROTEIN 6.3 gm/dL (6.4-8.2)
[2019-09-24 08:29] LABS: ALKALINE PHOSPHATASE 119 U/L (45-117)
[2019-09-24 08:30] LABS: PLATELET SUFFICIENCY HIGH (NORMAL); POLYCHROMASIA SLIGHT; TOTAL CELLS COUNTED 100 #CELLS
== END | disposition home or self-care (01) ==
LOC: LAB 09-23 09:32
PROVIDERS: Nurse Practitioner Acute Care
DX: K76.9 Liver disease, unspecified (principal); Z94.4 Liver transplant status; Z48.23 Encounter for aftercare following liver transplant; Z41.8 Encounter for other procedures for purposes other than remedying health state; E61.2 Magnesium deficiency; R73.02 Impaired glucose tolerance (oral)

== ENCOUNTER → 2019-09-27 | Outpatient (CLI) | payer MEDICAID ==
[2019-09-27 09:11] LABS: HEMATOCRIT 34.1 % (42.0-52.0); MEAN CELL VOLUME 93.4 fl (80.0-94.0); MEAN CORPUSCULAR HGB 27.4 pg (27.0-31.0); MEAN CORPUSCULAR HGB CONC 29.3 g/dl (33.0-37.0); MEAN PLATELET VOLUME 9.9 fl (9.6-12.3); PLATELET COUNT AUTOMATED 411 10*3/uL (130-400); RED BLOOD COUNT 3.65 10*6/uL (4.50-5.90); RED CELL DISTRI WIDTH 15.7 % (0-14.5); WHITE BLOOD COUNT 7.6 10*3/uL (4.8-10.8)
[2019-09-27 09:13] LABS: BUN 24 mg/dl (7-24); CHLORIDE 108 mmol/L (98-107); CREATININE 1.11 mg/dL (0.70-1.30); GAMMA GLUTAMYL TRANSPEPTIDASE 230 U/L (15-85); PHOSPHOROUS 2.3 mg/dL (2.5-4.9); POTASSIUM 4.3 mmol/L (3.5-5.1); SGOT/AST 40 IU/L (3-35); SGPT/ALT 94 U/L (12-78); SODIUM 141 mmol/L (136-145); TOTAL PROTEIN 6.2 gm/dL (6.4-8.2)
[2019-09-27 09:16] LABS: ALKALINE PHOSPHATASE 118 U/L (45-117)
[2019-09-27 09:34] LABS: PLATELET SUFFICIENCY HIGH (NORMAL); POLYCHROMASIA SLIGHT; ROULEAUX SLIGHT; TARGET CELLS FEW; TOTAL CELLS COUNTED 100 #CELLS
[2019-09-27 09:35] LABS: TOXIC GRANULATION SLIGHT
== END | disposition home or self-care (01) ==
LOC: LAB 07:58
PROVIDERS: Nurse Practitioner Acute Care
DX: Z94.4 Liver transplant status (principal)

== ENCOUNTER → 2019-09-30 | Outpatient (CLI) | payer MEDICAID ==
[2019-09-30 08:49] LABS: HEMOGLOBIN 9.9 g/dl (14.0-18.0); MEAN CELL VOLUME 91.7 fl (80.0-94.0); MEAN CORPUSCULAR HGB 27.5 pg (27.0-31.0); MEAN PLATELET VOLUME 9.9 fl (9.6-12.3); PLATELET COUNT AUTOMATED 408 10*3/uL (130-400); RED CELL DISTRI WIDTH 15.6 % (0-14.5); WHITE BLOOD COUNT 10.2 10*3/uL (4.8-10.8)
[2019-09-30 09:17] LABS: ALBUMIN 3.3 gm/dl (3.1-4.5); ALKALINE PHOSPHATASE 115 U/L (45-117); BUN 32 mg/dl (7-24); CHLORIDE 109 mmol/L (98-107); CREATININE 1.22 mg/dL (0.70-1.30); GAMMA GLUTAMYL TRANSPEPTIDASE 222 U/L (15-85); PHOSPHOROUS 2.1 mg/dL (2.5-4.9); PLATELET SUFFICIENCY HIGH (NORMAL); POLYCHROMASIA SLIGHT; POTASSIUM 3.9 mmol/L (3.5-5.1); SCHISTOCYTES FEW; SGOT/AST 40 IU/L (3-35); SGPT/ALT 91 U/L (12-78); SODIUM 143 mmol/L (136-145); TOTAL CELLS COUNTED 100 #CELLS; TOTAL PROTEIN 6.6 gm/dL (6.4-8.2); TOXIC GRANULATION SLIGHT
== END | disposition home or self-care (01) ==
LOC: LAB 00:06
PROVIDERS: Nurse Practitioner Acute Care
DX: Z94.4 Liver transplant status (principal)

== ENCOUNTER → 2019-10-04 | Outpatient (CLI) | payer MEDICAID ==
[2019-10-04 09:05] LABS: HEMATOCRIT 34.6 % (42.0-52.0); HEMOGLOBIN 10.1 g/dl (14.0-18.0); MEAN CELL VOLUME 90.1 fl (80.0-94.0); MEAN CORPUSCULAR HGB 26.3 pg (27.0-31.0); MEAN CORPUSCULAR HGB CONC 29.2 g/dl (33.0-37.0); PLATELET COUNT AUTOMATED 439 10*3/uL (130-400); RED BLOOD COUNT 3.84 10*6/uL (4.50-5.90); RED CELL DISTRI WIDTH 15.8 % (0-14.5); WHITE BLOOD COUNT 9.5 10*3/uL (4.8-10.8)
[2019-10-04 09:31] LABS: ALBUMIN 3.1 gm/dl (3.1-4.5); ALKALINE PHOSPHATASE 99 U/L (45-117); BUN 29 mg/dl (7-24); CHLORIDE 109 mmol/L (98-107); CREATININE 1.07 mg/dL (0.70-1.30); GAMMA GLUTAMYL TRANSPEPTIDASE 193 U/L (15-85); PHOSPHOROUS 2.4 mg/dL (2.5-4.9); SGOT/AST 49 IU/L (3-35); SGPT/ALT 86 U/L (12-78); SODIUM 142 mmol/L (136-145); TOTAL PROTEIN 6.4 gm/dL (6.4-8.2)
[2019-10-04 09:42] LABS: POTASSIUM 4.1 mmol/L (3.5-5.1)
[2019-10-04 10:38] LABS: PLATELET SUFFICIENCY HIGH (NORMAL); POLYCHROMASIA SLIGHT; TARGET CELLS FEW; TOTAL CELLS COUNTED 100 #CELLS
[2019-10-04 10:39] LABS: ROULEAUX SLIGHT; TOXIC GRANULATION SLIGHT
== END | disposition home or self-care (01) ==
LOC: LAB 08:08
PROVIDERS: Nurse Practitioner Acute Care
DX: Z41.8 Encounter for other procedures for purposes other than remedying health state (principal); Z01.818 Encounter for other preprocedural examination; Z01.812 Encounter for preprocedural laboratory examination; K76.9 Liver disease, unspecified; E83.30 Disorder of phosphorus metabolism, unspecified; R73.02 Impaired glucose tolerance (oral); Z48.23 Encounter for aftercare following liver transplant; Z94.4 Liver transplant status

== ENCOUNTER → 2019-10-07 | Outpatient (CLI) | payer MEDICAID ==
[2019-10-07 08:34] LABS: HEMATOCRIT 35.2 % (42.0-52.0); HEMOGLOBIN 10.3 g/dl (14.0-18.0); MEAN CELL VOLUME 88.2 fl (80.0-94.0); MEAN CORPUSCULAR HGB 25.8 pg (27.0-31.0); MEAN CORPUSCULAR HGB CONC 29.3 g/dl (33.0-37.0); MEAN PLATELET VOLUME 9.6 fl (9.6-12.3); PLATELET COUNT AUTOMATED 434 10*3/uL (130-400); RED BLOOD COUNT 3.99 10*6/uL (4.50-5.90); RED CELL DISTRI WIDTH 15.4 % (0-14.5); WHITE BLOOD COUNT 9.3 10*3/uL (4.8-10.8)
[2019-10-07 08:47] LABS: ALBUMIN 3.2 gm/dl (3.1-4.5); BUN 26 mg/dl (7-24); CHLORIDE 108 mmol/L (98-107); CREATININE 1.21 mg/dL (0.70-1.30); GAMMA GLUTAMYL TRANSPEPTIDASE 195 U/L (15-85); PHOSPHOROUS 2.3 mg/dL (2.5-4.9); POTASSIUM 3.4 mmol/L (3.5-5.1); SGOT/AST 46 IU/L (3-35); SGPT/ALT 98 U/L (12-78); SODIUM 141 mmol/L (136-145); TOTAL PROTEIN 6.8 gm/dL (6.4-8.2)
[2019-10-07 08:48] LABS: ALKALINE PHOSPHATASE 114 U/L (45-117)
[2019-10-07 09:51] LABS: BASOPHILS 1 % (0-1); PLATELET SUFFICIENCY HIGH (NORMAL); TOTAL CELLS COUNTED 100 #CELLS
== END | disposition home or self-care (01) ==
LOC: LAB 00:50
PROVIDERS: Nurse Practitioner Acute Care
DX: Z41.8 Encounter for other procedures for purposes other than remedying health state (principal); Z48.23 Encounter for aftercare following liver transplant; E61.3 Manganese deficiency; K76.9 Liver disease, unspecified; R73.02 Impaired glucose tolerance (oral); E61.2 Magnesium deficiency; Z94.4 Liver transplant status

== ENCOUNTER → 2019-10-11 | Outpatient (CLI) | payer MEDICAID ==
[2019-10-11 09:07] LABS: BASO % 0.2 % (0.0-1.0); EOS # 0.1 10*3/uL (0.0-0.4); EOS % 0.6 % (1.0-4.0); HEMATOCRIT 32.3 % (42.0-52.0); HEMOGLOBIN 9.7 g/dl (14.0-18.0); LYMPH # 2.1 10*3/uL (1.3-4.4); LYMPH % 22.3 % (27.0-41.0); MEAN CELL VOLUME 87.3 fl (80.0-94.0); MEAN CORPUSCULAR HGB 26.2 pg (27.0-31.0); MONO # 1.1 10*3/uL (0.1-1.0); MONO % 12.3 % (3.0-9.0); NEUT # 5.9 10*3/uL (2.3-7.9); NEUT % 63.1 % (47.0-73.0); PLATELET COUNT AUTOMATED 433 10*3/uL (130-400); RED CELL DISTRI WIDTH 15.8 % (0-14.5); WHITE BLOOD COUNT 9.3 10*3/uL (4.8-10.8)
[2019-10-11 09:37] LABS: CHLORIDE 110 mmol/L (98-107); SODIUM 141 mmol/L (136-145)
[2019-10-11 09:51] LABS: ALBUMIN 3.1 gm/dl (3.1-4.5); ALKALINE PHOSPHATASE 98 U/L (45-117); BUN 30 mg/dl (7-24); CREATININE 1.21 mg/dL (0.70-1.30); GAMMA GLUTAMYL TRANSPEPTIDASE 174 U/L (15-85); PHOSPHOROUS 2.7 mg/dL (2.5-4.9); SGOT/AST 33 IU/L (3-35); SGPT/ALT 80 U/L (12-78); TOTAL PROTEIN 6.3 gm/dL (6.4-8.2)
== END | disposition home or self-care (01) ==
LOC: LAB 07:50
PROVIDERS: Nurse Practitioner Acute Care
DX: Z41.8 Encounter for other procedures for purposes other than remedying health state (principal); Z48.23 Encounter for aftercare following liver transplant; K76.9 Liver disease, unspecified; E61.2 Magnesium deficiency; E83.2 Disorders of zinc metabolism; R73.02 Impaired glucose tolerance (oral); Z94.4 Liver transplant status

== ENCOUNTER → 2019-10-14 | Outpatient (CLI) | payer MEDICAID ==
[2019-10-14 08:57] LABS: BASO % 0.2 % (0.0-1.0); EOS # 0.1 10*3/uL (0.0-0.4); EOS % 0.7 % (1.0-4.0); HEMATOCRIT 32.8 % (42.0-52.0); HEMOGLOBIN 9.8 g/dl (14.0-18.0); LYMPH # 2.1 10*3/uL (1.3-4.4); LYMPH % 19.5 % (27.0-41.0); MEAN CELL VOLUME 86.3 fl (80.0-94.0); MEAN CORPUSCULAR HGB 25.8 pg (27.0-31.0); MEAN CORPUSCULAR HGB CONC 29.9 g/dl (33.0-37.0); MEAN PLATELET VOLUME 9.8 fl (9.6-12.3); MONO # 1.3 10*3/uL (0.1-1.0); MONO % 11.8 % (3.0-9.0); NEUT % 65.9 % (47.0-73.0); PLATELET COUNT AUTOMATED 435 10*3/uL (130-400); RED CELL DISTRI WIDTH 15.6 % (0-14.5); WHITE BLOOD COUNT 10.6 10*3/uL (4.8-10.8)
[2019-10-14 09:44] LABS: ALBUMIN 3.2 gm/dl (3.1-4.5); ALKALINE PHOSPHATASE 106 U/L (45-117); BUN 25 mg/dl (7-24); CHLORIDE 110 mmol/L (98-107); CREATININE 1.11 mg/dL (0.70-1.30); GAMMA GLUTAMYL TRANSPEPTIDASE 173 U/L (15-85); PHOSPHOROUS 2.2 mg/dL (2.5-4.9); SGOT/AST 31 IU/L (3-35); SGPT/ALT 79 U/L (12-78); SODIUM 142 mmol/L (136-145); TOTAL PROTEIN 6.4 gm/dL (6.4-8.2)
== END | disposition home or self-care (01) ==
LOC: LAB 08:08
PROVIDERS: Nurse Practitioner Acute Care
DX: E83.30 Disorder of phosphorus metabolism, unspecified (principal); K76.9 Liver disease, unspecified; R73.02 Impaired glucose tolerance (oral); Z41.8 Encounter for other procedures for purposes other than remedying health state; Z94.4 Liver transplant status; Z48.23 Encounter for aftercare following liver transplant

== ENCOUNTER → 2019-10-18 | Outpatient (CLI) | payer MEDICAID ==
[2019-10-18 08:38] LABS: BASO % 0.2 % (0.0-1.0); EOS # 0.1 10*3/uL (0.0-0.4); EOS % 0.6 % (1.0-4.0); HEMATOCRIT 32.7 % (42.0-52.0); HEMOGLOBIN 9.7 g/dl (14.0-18.0); LYMPH # 1.3 10*3/uL (1.3-4.4); LYMPH % 14.3 % (27.0-41.0); MEAN CELL VOLUME 86.3 fl (80.0-94.0); MEAN CORPUSCULAR HGB 25.6 pg (27.0-31.0); MEAN CORPUSCULAR HGB CONC 29.7 g/dl (33.0-37.0); MEAN PLATELET VOLUME 9.6 fl (9.6-12.3); MONO # 1.2 10*3/uL (0.1-1.0); MONO % 12.6 % (3.0-9.0); NEUT # 6.6 10*3/uL (2.3-7.9); NEUT % 70.7 % (47.0-73.0); PLATELET COUNT AUTOMATED 446 10*3/uL (130-400); RED BLOOD COUNT 3.79 10*6/uL (4.50-5.90); RED CELL DISTRI WIDTH 15.9 % (0-14.5); WHITE BLOOD COUNT 9.4 10*3/uL (4.8-10.8)
[2019-10-18 09:08] LABS: ALBUMIN 3.1 gm/dl (3.1-4.5); ALKALINE PHOSPHATASE 118 U/L (45-117); BUN 30 mg/dl (7-24); CHLORIDE 110 mmol/L (98-107); CREATININE 1.27 mg/dL (0.70-1.30); GAMMA GLUTAMYL TRANSPEPTIDASE 198 U/L (15-85); PHOSPHOROUS 2.6 mg/dL (2.5-4.9); POTASSIUM 4.3 mmol/L (3.5-5.1); SGOT/AST 53 IU/L (3-35); SGPT/ALT 97 U/L (12-78); SODIUM 144 mmol/L (136-145); TOTAL PROTEIN 6.3 gm/dL (6.4-8.2)
== END | disposition home or self-care (01) ==
LOC: LAB 08:06
PROVIDERS: Nurse Practitioner Acute Care
DX: Z48.23 Encounter for aftercare following liver transplant (principal); Z41.8 Encounter for other procedures for purposes other than remedying health state; K76.9 Liver disease, unspecified; E61.2 Magnesium deficiency; E83.30 Disorder of phosphorus metabolism, unspecified; R73.02 Impaired glucose tolerance (oral); Z94.4 Liver transplant status

== ENCOUNTER → 2019-10-21 | Outpatient (CLI) | payer MEDICAID ==
[2019-10-21 09:24] LABS: BASO % 0.1 % (0.0-1.0); EOS # 0.1 10*3/uL (0.0-0.4); EOS % 0.9 % (1.0-4.0); HEMOGLOBIN 9.5 g/dl (14.0-18.0); LYMPH # 1.7 10*3/uL (1.3-4.4); LYMPH % 22.8 % (27.0-41.0); MEAN CELL VOLUME 85.3 fl (80.0-94.0); MEAN CORPUSCULAR HGB 25.3 pg (27.0-31.0); MEAN CORPUSCULAR HGB CONC 29.7 g/dl (33.0-37.0); MEAN PLATELET VOLUME 9.6 fl (9.6-12.3); MONO % 13.9 % (3.0-9.0); NEUT # 4.6 10*3/uL (2.3-7.9); NEUT % 61.5 % (47.0-73.0); PLATELET COUNT AUTOMATED 410 10*3/uL (130-400); RED BLOOD COUNT 3.75 10*6/uL (4.50-5.90); WHITE BLOOD COUNT 7.5 10*3/uL (4.8-10.8)
[2019-10-21 10:04] LABS: CHLORIDE 110 mmol/L (98-107); POTASSIUM 3.7 mmol/L (3.5-5.1); SGOT/AST 38 IU/L (3-35); SGPT/ALT 81 U/L (12-78); SODIUM 141 mmol/L (136-145); TOTAL PROTEIN 6.2 gm/dL (6.4-8.2)
[2019-10-21 10:09] LABS: ALKALINE PHOSPHATASE 107 U/L (45-117); BUN 20 mg/dl (7-24); GAMMA GLUTAMYL TRANSPEPTIDASE 194 U/L (15-85); PHOSPHOROUS 2.4 mg/dL (2.5-4.9)
[2019-10-23 20:09] LABS: CMV QNT Negative (Negative)
== END | disposition home or self-care (01) ==
LOC: LAB 08:16
PROVIDERS: Nurse Practitioner Acute Care
DX: Z48.23 Encounter for aftercare following liver transplant (principal); Z01.812 Encounter for preprocedural laboratory examination; Z41.8 Encounter for other procedures for purposes other than remedying health state; K76.9 Liver disease, unspecified; E83.30 Disorder of phosphorus metabolism, unspecified; R73.02 Impaired glucose tolerance (oral); Z94.4 Liver transplant status

== ENCOUNTER → 2019-10-25 | Outpatient (CLI) | payer MEDICAID ==
[2019-10-25 09:30] LABS: BASO % 0.2 % (0.0-1.0); EOS # 0.1 10*3/uL (0.0-0.4); EOS % 0.6 % (1.0-4.0); HEMATOCRIT 32.8 % (42.0-52.0); HEMOGLOBIN 9.6 g/dl (14.0-18.0); LYMPH % 18.8 % (27.0-41.0); MEAN CELL VOLUME 86.3 fl (80.0-94.0); MEAN CORPUSCULAR HGB 25.3 pg (27.0-31.0); MEAN CORPUSCULAR HGB CONC 29.3 g/dl (33.0-37.0); MEAN PLATELET VOLUME 9.9 fl (9.6-12.3); MONO # 1.3 10*3/uL (0.1-1.0); MONO % 11.7 % (3.0-9.0); NEUT # 7.3 10*3/uL (2.3-7.9); NEUT % 67.7 % (47.0-73.0); PLATELET COUNT AUTOMATED 472 10*3/uL (130-400); RED CELL DISTRI WIDTH 15.8 % (0-14.5); WHITE BLOOD COUNT 10.7 10*3/uL (4.8-10.8)
[2019-10-25 10:09] LABS: ALBUMIN 3.1 gm/dl (3.1-4.5); BUN 27 mg/dl (7-24); CHLORIDE 111 mmol/L (98-107); GAMMA GLUTAMYL TRANSPEPTIDASE 181 U/L (15-85); POTASSIUM 3.9 mmol/L (3.5-5.1); SGOT/AST 31 IU/L (3-35); SGPT/ALT 71 U/L (12-78); SODIUM 142 mmol/L (136-145)
[2019-10-25 10:13] LABS: ALKALINE PHOSPHATASE 112 U/L (45-117); CREATININE 1.05 mg/dL (0.70-1.30); PHOSPHOROUS 2.3 mg/dL (2.5-4.9); TOTAL PROTEIN 6.5 gm/dL (6.4-8.2)
== END | disposition home or self-care (01) ==
LOC: LAB 07:53
PROVIDERS: Nurse Practitioner Acute Care
DX: Z01.818 Encounter for other preprocedural examination (principal); Z01.812 Encounter for preprocedural laboratory examination; Z41.8 Encounter for other procedures for purposes other than remedying health state; Z48.23 Encounter for aftercare following liver transplant; K76.9 Liver disease, unspecified; E83.30 Disorder of phosphorus metabolism, unspecified; R73.02 Impaired glucose tolerance (oral); Z94.4 Liver transplant status

== ENCOUNTER → 2019-10-28 | Outpatient (CLI) | payer MEDICAID ==
[2019-10-28 09:18] LABS: BASO % 0.2 % (0.0-1.0); EOS # 0.1 10*3/uL (0.0-0.4); EOS % 0.7 % (1.0-4.0); HEMATOCRIT 31.5 % (42.0-52.0); HEMOGLOBIN 9.3 g/dl (14.0-18.0); LYMPH % 20.2 % (27.0-41.0); MEAN CELL VOLUME 83.8 fl (80.0-94.0); MEAN CORPUSCULAR HGB 24.7 pg (27.0-31.0); MEAN CORPUSCULAR HGB CONC 29.5 g/dl (33.0-37.0); MONO # 1.2 10*3/uL (0.1-1.0); MONO % 12.4 % (3.0-9.0); NEUT # 6.6 10*3/uL (2.3-7.9); NEUT % 65.3 % (47.0-73.0); PLATELET COUNT AUTOMATED 505 10*3/uL (130-400); RED BLOOD COUNT 3.76 10*6/uL (4.50-5.90); RED CELL DISTRI WIDTH 15.9 % (0-14.5)
[2019-10-28 09:48] LABS: ALBUMIN 3.1 gm/dl (3.1-4.5); CHLORIDE 107 mmol/L (98-107); CREATININE 1.15 mg/dL (0.70-1.30); GAMMA GLUTAMYL TRANSPEPTIDASE 174 U/L (15-85); SGOT/AST 26 IU/L (3-35); SGPT/ALT 64 U/L (12-78); SODIUM 142 mmol/L (136-145); TOTAL PROTEIN 6.6 gm/dL (6.4-8.2)
[2019-10-28 09:52] LABS: ALKALINE PHOSPHATASE 109 U/L (45-117); BUN 30 mg/dl (7-24); PHOSPHOROUS 2.7 mg/dL (2.5-4.9)
== END | disposition home or self-care (01) ==
LOC: LAB 00:54
PROVIDERS: Nurse Practitioner Acute Care
DX: Z01.812 Encounter for preprocedural laboratory examination (principal); Z01.818 Encounter for other preprocedural examination; Z48.23 Encounter for aftercare following liver transplant; K76.9 Liver disease, unspecified; Z94.4 Liver transplant status; Z41.8 Encounter for other procedures for purposes other than remedying health state; E83.30 Disorder of phosphorus metabolism, unspecified; R73.02 Impaired glucose tolerance (oral)

== ENCOUNTER → 2019-11-04 | Outpatient (CLI) | payer MEDICAID ==
[2019-11-04 09:43] LABS: BASO % 0.3 % (0.0-1.0); EOS # 0.1 10*3/uL (0.0-0.4); EOS % 1.2 % (1.0-4.0); HEMATOCRIT 33.1 % (42.0-52.0); HEMOGLOBIN 9.6 g/dl (14.0-18.0); LYMPH # 1.5 10*3/uL (1.3-4.4); LYMPH % 15.9 % (27.0-41.0); MEAN CELL VOLUME 82.8 fl (80.0-94.0); MEAN PLATELET VOLUME 9.7 fl (9.6-12.3); MONO # 1.2 10*3/uL (0.1-1.0); MONO % 12.6 % (3.0-9.0); NEUT # 6.5 10*3/uL (2.3-7.9); PLATELET COUNT AUTOMATED 512 10*3/uL (130-400); RED CELL DISTRI WIDTH 16.3 % (0-14.5); WHITE BLOOD COUNT 9.5 10*3/uL (4.8-10.8)
[2019-11-04 10:12] LABS: ALBUMIN 3.3 gm/dl (3.1-4.5); BUN 26 mg/dl (7-24); CHLORIDE 109 mmol/L (98-107); CREATININE 1.18 mg/dL (0.70-1.30); GAMMA GLUTAMYL TRANSPEPTIDASE 149 U/L (15-85); PHOSPHOROUS 2.8 mg/dL (2.5-4.9); POTASSIUM 3.4 mmol/L (3.5-5.1); SGOT/AST 27 IU/L (3-35); SGPT/ALT 60 U/L (12-78); SODIUM 141 mmol/L (136-145); TOTAL PROTEIN 6.8 gm/dL (6.4-8.2)
[2019-11-04 10:14] LABS: ALKALINE PHOSPHATASE 100 U/L (45-117)
[2019-11-05 08:06] LABS: HEPATITIS B SURFACE AG Negative (Negative); HEPATITIS C VIRUS ANTIBODY <0.1 s/co (0.0-0.9)
[2019-11-06 00:07] LABS: HEPATITIS C QNT HCV Not Detected IU/mL (.)
[2019-11-06 15:07] LABS: HEPATITIS B QNT HBV DNA not detected IU/mL (.)
== END | disposition home or self-care (01) ==
LOC: LAB 07:46
PROVIDERS: Nurse Practitioner Acute Care
DX: Z48.23 Encounter for aftercare following liver transplant (principal); Z01.812 Encounter for preprocedural laboratory examination; Z41.8 Encounter for other procedures for purposes other than remedying health state; Z01.818 Encounter for other preprocedural examination; K76.9 Liver disease, unspecified; E83.30 Disorder of phosphorus metabolism, unspecified; R73.02 Impaired glucose tolerance (oral); Z94.4 Liver transplant status

== ENCOUNTER → 2019-11-11 | Outpatient (CLI) | payer MEDICAID ==
[2019-11-11 08:10] LABS: BASO % 0.3 % (0.0-1.0); EOS # 0.1 10*3/uL (0.0-0.4); EOS % 1.1 % (1.0-4.0); HEMATOCRIT 30.8 % (42.0-52.0); HEMOGLOBIN 8.9 g/dl (14.0-18.0); LYMPH # 1.5 10*3/uL (1.3-4.4); LYMPH % 16.3 % (27.0-41.0); MEAN CELL VOLUME 82.6 fl (80.0-94.0); MEAN CORPUSCULAR HGB 23.9 pg (27.0-31.0); MEAN CORPUSCULAR HGB CONC 28.9 g/dl (33.0-37.0); MEAN PLATELET VOLUME 9.6 fl (9.6-12.3); MONO # 1.4 10*3/uL (0.1-1.0); MONO % 15.3 % (3.0-9.0); NEUT # 6.2 10*3/uL (2.3-7.9); NEUT % 65.8 % (47.0-73.0); PLATELET COUNT AUTOMATED 435 10*3/uL (130-400); RED BLOOD COUNT 3.73 10*6/uL (4.50-5.90); RED CELL DISTRI WIDTH 16.6 % (0-14.5); WHITE BLOOD COUNT 9.4 10*3/uL (4.8-10.8)
[2019-11-11 08:43] LABS: ALBUMIN 3.2 gm/dl (3.1-4.5); ALKALINE PHOSPHATASE 101 U/L (45-117); BUN 24 mg/dl (7-24); CHLORIDE 110 mmol/L (98-107); CREATININE 1.23 mg/dL (0.70-1.30); GAMMA GLUTAMYL TRANSPEPTIDASE 111 U/L (15-85); PHOSPHOROUS 2.9 mg/dL (2.5-4.9); SGOT/AST 24 IU/L (3-35); SGPT/ALT 50 U/L (12-78); SODIUM 142 mmol/L (136-145); TOTAL PROTEIN 6.5 gm/dL (6.4-8.2)
== END | disposition home or self-care (01) ==
LOC: LAB 07:40
PROVIDERS: Nurse Practitioner Acute Care
DX: Z48.23 Encounter for aftercare following liver transplant (principal); Z41.8 Encounter for other procedures for purposes other than remedying health state; Z01.812 Encounter for preprocedural laboratory examination; Z01.818 Encounter for other preprocedural examination; E83.30 Disorder of phosphorus metabolism, unspecified; K76.9 Liver disease, unspecified; R73.02 Impaired glucose tolerance (oral); Z94.4 Liver transplant status

== ENCOUNTER → 2019-11-18 | Outpatient (CLI) | payer MEDICAID ==
[2019-11-18 08:13] LABS: BASO % 0.4 % (0.0-1.0); EOS # 0.2 10*3/uL (0.0-0.4); EOS % 1.8 % (1.0-4.0); HEMATOCRIT 31.3 % (42.0-52.0); HEMOGLOBIN 8.9 g/dl (14.0-18.0); LYMPH # 1.5 10*3/uL (1.3-4.4); LYMPH % 14.4 % (27.0-41.0); MEAN CELL VOLUME 82.8 fl (80.0-94.0); MEAN CORPUSCULAR HGB 23.5 pg (27.0-31.0); MEAN CORPUSCULAR HGB CONC 28.4 g/dl (33.0-37.0); MEAN PLATELET VOLUME 9.1 fl (9.6-12.3); MONO # 1.4 10*3/uL (0.1-1.0); MONO % 13.5 % (3.0-9.0); NEUT # 7.2 10*3/uL (2.3-7.9); NEUT % 68.5 % (47.0-73.0); PLATELET COUNT AUTOMATED 447 10*3/uL (130-400); RED BLOOD COUNT 3.78 10*6/uL (4.50-5.90); RED CELL DISTRI WIDTH 17.1 % (0-14.5); WHITE BLOOD COUNT 10.5 10*3/uL (4.8-10.8)
[2019-11-18 09:08] LABS: ALBUMIN 3.1 gm/dl (3.1-4.5); ALKALINE PHOSPHATASE 102 U/L (45-117); BUN 23 mg/dl (7-24); CHLORIDE 111 mmol/L (98-107); CHOLESTEROL 172 mg/dL (<200); CREATININE 1.17 mg/dL (0.70-1.30); GAMMA GLUTAMYL TRANSPEPTIDASE 88 U/L (15-85); HDL CHOLESTEROL 50 mg/dl (40-60); LDL CHOLESTEROL 85 mg/dL (9-159); SGOT/AST 20 IU/L (3-35); SGPT/ALT 45 U/L (12-78); SODIUM 143 mmol/L (136-145); TOTAL PROTEIN 6.4 gm/dL (6.4-8.2); TRIGLYCERIDES 184 mg/dl (<150); VLDL CHOLESTEROL 37 mg/dL (6-40)
== END | disposition home or self-care (01) ==
LOC: LAB 07:51
PROVIDERS: Nurse Practitioner Acute Care
DX: Z01.818 Encounter for other preprocedural examination (principal); Z41.8 Encounter for other procedures for purposes other than remedying health state; Z48.23 Encounter for aftercare following liver transplant; K76.9 Liver disease, unspecified; E83.30 Disorder of phosphorus metabolism, unspecified; R73.02 Impaired glucose tolerance (oral); Z94.4 Liver transplant status

== ENCOUNTER → 2019-11-25 | Outpatient (CLI) | payer MEDICAID ==
[2019-11-25 08:22] LABS: BASO % 0.4 % (0.0-1.0); EOS # 0.2 10*3/uL (0.0-0.4); EOS % 1.5 % (1.0-4.0); HEMATOCRIT 30.9 % (42.0-52.0); HEMOGLOBIN 8.8 g/dl (14.0-18.0); LYMPH # 1.5 10*3/uL (1.3-4.4); MEAN CELL VOLUME 80.7 fl (80.0-94.0); MEAN CORPUSCULAR HGB CONC 28.5 g/dl (33.0-37.0); MEAN PLATELET VOLUME 9.3 fl (9.6-12.3); MONO # 1.4 10*3/uL (0.1-1.0); NEUT % 68.5 % (47.0-73.0); PLATELET COUNT AUTOMATED 504 10*3/uL (130-400); RED BLOOD COUNT 3.83 10*6/uL (4.50-5.90); RED CELL DISTRI WIDTH 17.2 % (0-14.5); WHITE BLOOD COUNT 10.2 10*3/uL (4.8-10.8)
[2019-11-25 08:54] LABS: ALBUMIN 3.4 gm/dl (3.1-4.5); BUN 23 mg/dl (7-24); CHLORIDE 110 mmol/L (98-107); CHOLESTEROL 197 mg/dL (<200); CREATININE 1.28 mg/dL (0.70-1.30); GAMMA GLUTAMYL TRANSPEPTIDASE 88 U/L (15-85); SGOT/AST 27 IU/L (3-35); SGPT/ALT 50 U/L (12-78); SODIUM 141 mmol/L (136-145); TOTAL PROTEIN 6.7 gm/dL (6.4-8.2); TRIGLYCERIDES 107 mg/dl (<150); VLDL CHOLESTEROL 21 mg/dL (6-40)
[2019-11-25 08:55] LABS: ALKALINE PHOSPHATASE 107 U/L (45-117); HDL CHOLESTEROL 59 mg/dl (40-60); LDL CHOLESTEROL 117 mg/dL (9-159)
== END | disposition home or self-care (01) ==
LOC: LAB 07:48
PROVIDERS: Nurse Practitioner Acute Care
DX: Z01.812 Encounter for preprocedural laboratory examination (principal); Z01.818 Encounter for other preprocedural examination; Z41.8 Encounter for other procedures for purposes other than remedying health state; Z48.23 Encounter for aftercare following liver transplant; K76.9 Liver disease, unspecified; Z94.4 Liver transplant status; E61.2 Magnesium deficiency; R73.02 Impaired glucose tolerance (oral)

== ENCOUNTER → 2019-12-02 | Outpatient (CLI) | payer MEDICAID ==
[2019-12-02 08:42] LABS: BASO % 0.5 % (0.0-1.0); EOS # 0.2 10*3/uL (0.0-0.4); EOS % 2.6 % (1.0-4.0); HEMATOCRIT 30.2 % (42.0-52.0); HEMOGLOBIN 8.6 g/dl (14.0-18.0); LYMPH # 1.5 10*3/uL (1.3-4.4); LYMPH % 17.2 % (27.0-41.0); MEAN CELL VOLUME 79.5 fl (80.0-94.0); MEAN CORPUSCULAR HGB 22.6 pg (27.0-31.0); MEAN CORPUSCULAR HGB CONC 28.5 g/dl (33.0-37.0); MEAN PLATELET VOLUME 9.6 fl (9.6-12.3); MONO # 1.4 10*3/uL (0.1-1.0); MONO % 16.4 % (3.0-9.0); NEUT # 5.3 10*3/uL (2.3-7.9); NEUT % 62.6 % (47.0-73.0); PLATELET COUNT AUTOMATED 511 10*3/uL (130-400); RED CELL DISTRI WIDTH 17.2 % (0-14.5); WHITE BLOOD COUNT 8.5 10*3/uL (4.8-10.8)
[2019-12-02 09:12] LABS: ALBUMIN 3.3 gm/dl (3.1-4.5); ALKALINE PHOSPHATASE 91 U/L (45-117); BUN 22 mg/dl (7-24); CHLORIDE 112 mmol/L (98-107); CREATININE 1.18 mg/dL (0.70-1.30); GAMMA GLUTAMYL TRANSPEPTIDASE 63 U/L (15-85); PHOSPHOROUS 2.8 mg/dL (2.5-4.9); SGOT/AST 20 IU/L (3-35); SGPT/ALT 40 U/L (12-78); SODIUM 143 mmol/L (136-145); TOTAL PROTEIN 6.6 gm/dL (6.4-8.2)
== END | disposition home or self-care (01) ==
LOC: LAB 08:02
PROVIDERS: Nurse Practitioner Acute Care
DX: Z01.818 Encounter for other preprocedural examination (principal); Z01.812 Encounter for preprocedural laboratory examination; Z48.23 Encounter for aftercare following liver transplant; Z41.8 Encounter for other procedures for purposes other than remedying health state; K76.9 Liver disease, unspecified; E61.2 Magnesium deficiency; R73.02 Impaired glucose tolerance (oral); Z94.4 Liver transplant status

== ENCOUNTER → 2019-12-09 | Outpatient (CLI) | payer MEDICAID ==
[2019-12-09 08:28] LABS: BASO % 0.5 % (0.0-1.0); EOS # 0.2 10*3/uL (0.0-0.4); EOS % 2.5 % (1.0-4.0); HEMATOCRIT 31.5 % (42.0-52.0); HEMOGLOBIN 8.9 g/dl (14.0-18.0); LYMPH # 1.3 10*3/uL (1.3-4.4); LYMPH % 15.2 % (27.0-41.0); MEAN CELL VOLUME 80.6 fl (80.0-94.0); MEAN CORPUSCULAR HGB 22.8 pg (27.0-31.0); MEAN CORPUSCULAR HGB CONC 28.3 g/dl (33.0-37.0); MEAN PLATELET VOLUME 9.4 fl (9.6-12.3); MONO # 1.2 10*3/uL (0.1-1.0); MONO % 14.5 % (3.0-9.0); NEUT # 5.6 10*3/uL (2.3-7.9); NEUT % 66.2 % (47.0-73.0); PLATELET COUNT AUTOMATED 484 10*3/uL (130-400); RED BLOOD COUNT 3.91 10*6/uL (4.50-5.90); RED CELL DISTRI WIDTH 17.8 % (0-14.5); WHITE BLOOD COUNT 8.4 10*3/uL (4.8-10.8)
[2019-12-09 08:59] LABS: ALBUMIN 3.2 gm/dl (3.1-4.5); ALKALINE PHOSPHATASE 106 U/L (45-117); BUN 21 mg/dl (7-24); CHLORIDE 109 mmol/L (98-107); CREATININE 1.16 mg/dL (0.70-1.30); GAMMA GLUTAMYL TRANSPEPTIDASE 65 U/L (15-85); PHOSPHOROUS 2.6 mg/dL (2.5-4.9); SGOT/AST 27 IU/L (3-35); SGPT/ALT 44 U/L (12-78); SODIUM 142 mmol/L (136-145); TOTAL PROTEIN 6.7 gm/dL (6.4-8.2)
== END | disposition home or self-care (01) ==
LOC: LAB 07:55
PROVIDERS: Nurse Practitioner Acute Care
DX: Z48.23 Encounter for aftercare following liver transplant (principal); Z41.8 Encounter for other procedures for purposes other than remedying health state; K76.9 Liver disease, unspecified; Z94.4 Liver transplant status

== ENCOUNTER → 2019-12-16 | Outpatient (CLI) | payer MEDICAID ==
[2019-12-16 08:38] LABS: BASO # 0.1 10*3/uL (0.0-0.1); BASO % 0.5 % (0.0-1.0); EOS # 0.4 10*3/uL (0.0-0.4); EOS % 3.3 % (1.0-4.0); HEMATOCRIT 32.2 % (42.0-52.0); HEMOGLOBIN 8.9 g/dl (14.0-18.0); LYMPH # 1.7 10*3/uL (1.3-4.4); LYMPH % 16.3 % (27.0-41.0); MEAN CELL VOLUME 78.5 fl (80.0-94.0); MEAN CORPUSCULAR HGB 21.7 pg (27.0-31.0); MEAN CORPUSCULAR HGB CONC 27.6 g/dl (33.0-37.0); MEAN PLATELET VOLUME 9.7 fl (9.6-12.3); MONO # 1.4 10*3/uL (0.1-1.0); MONO % 13.6 % (3.0-9.0); NEUT % 65.5 % (47.0-73.0); PLATELET COUNT AUTOMATED 521 10*3/uL (130-400); RED CELL DISTRI WIDTH 17.7 % (0-14.5); WHITE BLOOD COUNT 10.6 10*3/uL (4.8-10.8)
[2019-12-16 09:01] LABS: ALBUMIN 3.4 gm/dl (3.1-4.5); ALKALINE PHOSPHATASE 114 U/L (45-117); BUN 23 mg/dl (7-24); CHLORIDE 109 mmol/L (98-107); CREATININE 1.15 mg/dL (0.70-1.30); GAMMA GLUTAMYL TRANSPEPTIDASE 69 U/L (15-85); POTASSIUM 3.7 mmol/L (3.5-5.1); SGOT/AST 28 IU/L (3-35); SGPT/ALT 47 U/L (12-78); SODIUM 141 mmol/L (136-145); TOTAL PROTEIN 6.8 gm/dL (6.4-8.2)
== END | disposition home or self-care (01) ==
LOC: LAB 07:50
PROVIDERS: Nurse Practitioner Acute Care
DX: Z48.23 Encounter for aftercare following liver transplant (principal); R73.02 Impaired glucose tolerance (oral); K76.9 Liver disease, unspecified; E83.30 Disorder of phosphorus metabolism, unspecified; Z01.812 Encounter for preprocedural laboratory examination; Z01.818 Encounter for other preprocedural examination; Z41.8 Encounter for other procedures for purposes other than remedying health state; Z94.4 Liver transplant status

== ENCOUNTER → 2019-12-31 | Outpatient (CLI) | payer SELFPAY ==
[2019-12-31 08:14] LABS: BASO # 0.1 10*3/uL (0.0-0.1); BASO % 0.6 % (0.0-1.0); EOS # 0.4 10*3/uL (0.0-0.4); EOS % 4.1 % (1.0-4.0); HEMATOCRIT 31.1 % (42.0-52.0); HEMOGLOBIN 8.8 g/dl (14.0-18.0); LYMPH # 1.7 10*3/uL (1.3-4.4); LYMPH % 18.9 % (27.0-41.0); MEAN CELL VOLUME 77.2 fl (80.0-94.0); MEAN CORPUSCULAR HGB 21.8 pg (27.0-31.0); MEAN CORPUSCULAR HGB CONC 28.3 g/dl (33.0-37.0); MEAN PLATELET VOLUME 9.4 fl (9.6-12.3); MONO # 1.3 10*3/uL (0.1-1.0); NEUT # 5.4 10*3/uL (2.3-7.9); NEUT % 60.7 % (47.0-73.0); PLATELET COUNT AUTOMATED 465 10*3/uL (130-400); RED BLOOD COUNT 4.03 10*6/uL (4.50-5.90); RED CELL DISTRI WIDTH 17.9 % (0-14.5); WHITE BLOOD COUNT 8.9 10*3/uL (4.8-10.8)
[2019-12-31 08:45] LABS: ALBUMIN 3.3 gm/dl (3.1-4.5); BUN 27 mg/dl (7-24); CHLORIDE 110 mmol/L (98-107); CREATININE 1.19 mg/dL (0.70-1.30); GAMMA GLUTAMYL TRANSPEPTIDASE 65 U/L (15-85); PHOSPHOROUS 2.9 mg/dL (2.5-4.9); POTASSIUM 4.2 mmol/L (3.5-5.1); SGOT/AST 28 IU/L (3-35); SGPT/ALT 42 U/L (12-78); SODIUM 140 mmol/L (136-145); TOTAL PROTEIN 6.9 gm/dL (6.4-8.2)
[2019-12-31 08:46] LABS: ALKALINE PHOSPHATASE 121 U/L (45-117)
== END | disposition home or self-care (01) ==
LOC: LAB 07:28
PROVIDERS: Nurse Practitioner Acute Care
DX: Z41.8 Encounter for other procedures for purposes other than remedying health state (principal); Z01.818 Encounter for other preprocedural examination; Z01.812 Encounter for preprocedural laboratory examination; Z01.82 Encounter for allergy testing; Z48.23 Encounter for aftercare following liver transplant; K76.9 Liver disease, unspecified; E83.30 Disorder of phosphorus metabolism, unspecified; R73.02 Impaired glucose tolerance (oral); Z79.4 Long term (current) use of insulin

== ENCOUNTER → 2020-01-07 | Outpatient (CLI) | payer SELFPAY ==
[2020-01-07 08:52] LABS: BASO % 0.5 % (0.0-1.0); EOS # 0.3 10*3/uL (0.0-0.4); HEMATOCRIT 31.9 % (42.0-52.0); HEMOGLOBIN 9.1 g/dl (14.0-18.0); LYMPH # 1.8 10*3/uL (1.3-4.4); LYMPH % 21.1 % (27.0-41.0); MEAN CELL VOLUME 77.1 fl (80.0-94.0); MEAN CORPUSCULAR HGB CONC 28.5 g/dl (33.0-37.0); MEAN PLATELET VOLUME 9.4 fl (9.6-12.3); MONO # 1.3 10*3/uL (0.1-1.0); MONO % 15.7 % (3.0-9.0); NEUT % 58.5 % (47.0-73.0); PLATELET COUNT AUTOMATED 459 10*3/uL (130-400); RED BLOOD COUNT 4.14 10*6/uL (4.50-5.90); RED CELL DISTRI WIDTH 18.4 % (0-14.5); WHITE BLOOD COUNT 8.5 10*3/uL (4.8-10.8)
[2020-01-07 09:15] LABS: ALBUMIN 3.3 gm/dl (3.1-4.5); ALKALINE PHOSPHATASE 115 U/L (45-117); BUN 23 mg/dl (7-24); CHLORIDE 108 mmol/L (98-107); CREATININE 1.14 mg/dL (0.70-1.30); GAMMA GLUTAMYL TRANSPEPTIDASE 43 U/L (15-85); PHOSPHOROUS 2.6 mg/dL (2.5-4.9); POTASSIUM 3.9 mmol/L (3.5-5.1); SGOT/AST 24 IU/L (3-35); SGPT/ALT 35 U/L (12-78); SODIUM 139 mmol/L (136-145); TOTAL PROTEIN 7.1 gm/dL (6.4-8.2)
== END | disposition home or self-care (01) ==
LOC: LAB 07:48
PROVIDERS: Nurse Practitioner Acute Care
DX: Z48.23 Encounter for aftercare following liver transplant (principal); Z01.812 Encounter for preprocedural laboratory examination; K76.9 Liver disease, unspecified; R73.02 Impaired glucose tolerance (oral); E83.30 Disorder of phosphorus metabolism, unspecified; Z94.4 Liver transplant status

== ENCOUNTER → 2020-01-14 | Outpatient (CLI) | payer SELFPAY ==
[2020-01-14 09:25] LABS: ALBUMIN 3.5 gm/dl (3.1-4.5); ALKALINE PHOSPHATASE 125 U/L (45-117); BUN 27 mg/dl (7-24); CHLORIDE 111 mmol/L (98-107); CREATININE 1.17 mg/dL (0.70-1.30); GAMMA GLUTAMYL TRANSPEPTIDASE 39 U/L (15-85); PHOSPHOROUS 2.7 mg/dL (2.5-4.9); POTASSIUM 3.9 mmol/L (3.5-5.1); SGOT/AST 23 IU/L (3-35); SGPT/ALT 28 U/L (12-78); SODIUM 142 mmol/L (136-145); TOTAL PROTEIN 7.5 gm/dL (6.4-8.2)
[2020-01-14 10:03] LABS: BASO % 0.4 % (0.0-1.0); EOS # 0.3 10*3/uL (0.0-0.4); EOS % 4.2 % (1.0-4.0); HEMATOCRIT 32.3 % (42.0-52.0); HEMOGLOBIN 9.1 g/dl (14.0-18.0); LYMPH # 1.7 10*3/uL (1.3-4.4); LYMPH % 23.2 % (27.0-41.0); MEAN CELL VOLUME 76.9 fl (80.0-94.0); MEAN CORPUSCULAR HGB 21.7 pg (27.0-31.0); MEAN CORPUSCULAR HGB CONC 28.2 g/dl (33.0-37.0); MEAN PLATELET VOLUME 9.6 fl (9.6-12.3); MONO % 13.4 % (3.0-9.0); NEUT # 4.2 10*3/uL (2.3-7.9); NEUT % 58.5 % (47.0-73.0); PLATELET COUNT AUTOMATED 451 10*3/uL (130-400); RED CELL DISTRI WIDTH 18.2 % (0-14.5); WHITE BLOOD COUNT 7.1 10*3/uL (4.8-10.8)
== END | disposition home or self-care (01) ==
LOC: LAB 08:08
PROVIDERS: Nurse Practitioner Acute Care
DX: Z48.23 Encounter for aftercare following liver transplant (principal); Z41.8 Encounter for other procedures for purposes other than remedying health state; K76.9 Liver disease, unspecified; E83.30 Disorder of phosphorus metabolism, unspecified; R73.02 Impaired glucose tolerance (oral); Z94.4 Liver transplant status

== ENCOUNTER → 2020-01-21 | Outpatient (CLI) | payer SELFPAY ==
[2020-01-21 08:12] LABS: BASO % 0.3 % (0.0-1.0); EOS # 0.2 10*3/uL (0.0-0.4); EOS % 2.5 % (1.0-4.0); HEMATOCRIT 33.1 % (42.0-52.0); HEMOGLOBIN 9.4 g/dl (14.0-18.0); LYMPH # 1.7 10*3/uL (1.3-4.4); LYMPH % 22.6 % (27.0-41.0); MEAN CELL VOLUME 75.7 fl (80.0-94.0); MEAN CORPUSCULAR HGB 21.5 pg (27.0-31.0); MEAN CORPUSCULAR HGB CONC 28.4 g/dl (33.0-37.0); MEAN PLATELET VOLUME 9.1 fl (9.6-12.3); MONO # 1.1 10*3/uL (0.1-1.0); MONO % 14.7 % (3.0-9.0); NEUT # 4.6 10*3/uL (2.3-7.9); NEUT % 59.8 % (47.0-73.0); PLATELET COUNT AUTOMATED 437 10*3/uL (130-400); RED BLOOD COUNT 4.37 10*6/uL (4.50-5.90); RED CELL DISTRI WIDTH 18.1 % (0-14.5); WHITE BLOOD COUNT 7.7 10*3/uL (4.8-10.8)
[2020-01-21 08:28] LABS: ALBUMIN 3.4 gm/dl (3.1-4.5); ALKALINE PHOSPHATASE 135 U/L (45-117); BUN 24 mg/dl (7-24); CHLORIDE 109 mmol/L (98-107); CREATININE 1.31 mg/dL (0.70-1.30); GAMMA GLUTAMYL TRANSPEPTIDASE 29 U/L (15-85); PHOSPHOROUS 2.5 mg/dL (2.5-4.9); POTASSIUM 3.8 mmol/L (3.5-5.1); SGOT/AST 25 IU/L (3-35); SGPT/ALT 33 U/L (12-78); SODIUM 140 mmol/L (136-145); TOTAL PROTEIN 7.5 gm/dL (6.4-8.2)
== END | disposition home or self-care (01) ==
LOC: LAB 07:46
PROVIDERS: Nurse Practitioner Acute Care
DX: Z01.812 Encounter for preprocedural laboratory examination (principal); Z01.818 Encounter for other preprocedural examination; Z48.23 Encounter for aftercare following liver transplant; Z41.8 Encounter for other procedures for purposes other than remedying health state; K76.9 Liver disease, unspecified; E61.2 Magnesium deficiency; R73.02 Impaired glucose tolerance (oral); Z94.4 Liver transplant status

== ENCOUNTER → 2020-01-28 | Outpatient (CLI) | payer SELFPAY ==
[2020-01-28 08:31] LABS: BASO % 0.4 % (0.0-1.0); EOS # 0.2 10*3/uL (0.0-0.4); EOS % 4.3 % (1.0-4.0); HEMATOCRIT 33.9 % (42.0-52.0); HEMOGLOBIN 9.6 g/dl (14.0-18.0); LYMPH # 1.4 10*3/uL (1.3-4.4); LYMPH % 25.6 % (27.0-41.0); MEAN CELL VOLUME 75.2 fl (80.0-94.0); MEAN CORPUSCULAR HGB 21.3 pg (27.0-31.0); MEAN CORPUSCULAR HGB CONC 28.3 g/dl (33.0-37.0); MEAN PLATELET VOLUME 9.1 fl (9.6-12.3); MONO % 18.3 % (3.0-9.0); NEUT # 2.9 10*3/uL (2.3-7.9); PLATELET COUNT AUTOMATED 414 10*3/uL (130-400); RED BLOOD COUNT 4.51 10*6/uL (4.50-5.90); RED CELL DISTRI WIDTH 17.9 % (0-14.5); WHITE BLOOD COUNT 5.6 10*3/uL (4.8-10.8)
[2020-01-28 09:03] LABS: ALBUMIN 3.3 gm/dl (3.1-4.5); ALKALINE PHOSPHATASE 151 U/L (45-117); BUN 20 mg/dl (7-24); CHLORIDE 110 mmol/L (98-107); CREATININE 1.25 mg/dL (0.70-1.30); GAMMA GLUTAMYL TRANSPEPTIDASE 29 U/L (15-85); PHOSPHOROUS 2.9 mg/dL (2.5-4.9); POTASSIUM 3.8 mmol/L (3.5-5.1); SGOT/AST 33 IU/L (3-35); SGPT/ALT 38 U/L (12-78); SODIUM 141 mmol/L (136-145)
== END | disposition home or self-care (01) ==
LOC: LAB 08:06
PROVIDERS: Nurse Practitioner Acute Care
DX: Z01.812 Encounter for preprocedural laboratory examination (principal); Z01.818 Encounter for other preprocedural examination; Z48.23 Encounter for aftercare following liver transplant; Z41.8 Encounter for other procedures for purposes other than remedying health state; K76.9 Liver disease, unspecified; E61.2 Magnesium deficiency; R73.02 Impaired glucose tolerance (oral); Z94.4 Liver transplant status

== ENCOUNTER → 2020-02-04 | Outpatient (CLI) | payer SELFPAY ==
[2020-02-04 08:14] LABS: BASO % 0.4 % (0.0-1.0); EOS # 0.3 10*3/uL (0.0-0.4); EOS % 3.8 % (1.0-4.0); HEMATOCRIT 32.1 % (42.0-52.0); HEMOGLOBIN 9.3 g/dl (14.0-18.0); LYMPH # 1.6 10*3/uL (1.3-4.4); LYMPH % 23.2 % (27.0-41.0); MEAN CELL VOLUME 75.9 fl (80.0-94.0); MEAN PLATELET VOLUME 9.5 fl (9.6-12.3); MONO # 1.3 10*3/uL (0.1-1.0); MONO % 18.7 % (3.0-9.0); NEUT # 3.7 10*3/uL (2.3-7.9); NEUT % 53.5 % (47.0-73.0); PLATELET COUNT AUTOMATED 421 10*3/uL (130-400); RED BLOOD COUNT 4.23 10*6/uL (4.50-5.90); WHITE BLOOD COUNT 6.9 10*3/uL (4.8-10.8)
[2020-02-04 08:50] LABS: ALBUMIN 3.3 gm/dl (3.1-4.5); BUN 22 mg/dl (7-24); CHLORIDE 110 mmol/L (98-107); CHOLESTEROL 193 mg/dL (<200); CREATININE 1.22 mg/dL (0.70-1.30); GAMMA GLUTAMYL TRANSPEPTIDASE 38 U/L (15-85); HDL CHOLESTEROL 42 mg/dl (40-60); LDL CHOLESTEROL 130 mg/dL (9-159); PHOSPHOROUS 2.7 mg/dL (2.5-4.9); POTASSIUM 3.9 mmol/L (3.5-5.1); SGOT/AST 35 IU/L (3-35); SGPT/ALT 42 U/L (12-78); SODIUM 140 mmol/L (136-145); TOTAL PROTEIN 7.2 gm/dL (6.4-8.2); TRIGLYCERIDES 106 mg/dl (<150); VLDL CHOLESTEROL 21 mg/dL (6-40)
[2020-02-04 08:51] LABS: ALKALINE PHOSPHATASE 153 U/L (45-117)
== END | disposition home or self-care (01) ==
LOC: LAB 07:49
PROVIDERS: Nurse Practitioner Acute Care
DX: Z01.812 Encounter for preprocedural laboratory examination (principal); Z01.818 Encounter for other preprocedural examination; Z48.23 Encounter for aftercare following liver transplant; Z41.8 Encounter for other procedures for purposes other than remedying health state; K76.9 Liver disease, unspecified; E83.30 Disorder of phosphorus metabolism, unspecified; R73.02 Impaired glucose tolerance (oral); Z94.4 Liver transplant status

== ENCOUNTER → 2020-02-11 | Outpatient (CLI) | payer SELFPAY ==
[2020-02-11 08:14] LABS: BASO % 0.6 % (0.0-1.0); EOS # 0.3 10*3/uL (0.0-0.4); EOS % 4.7 % (1.0-4.0); LYMPH # 1.4 10*3/uL (1.3-4.4); LYMPH % 21.2 % (27.0-41.0); MEAN CELL VOLUME 76.7 fl (80.0-94.0); MEAN CORPUSCULAR HGB 22.1 pg (27.0-31.0); MEAN CORPUSCULAR HGB CONC 28.8 g/dl (33.0-37.0); MONO % 14.5 % (3.0-9.0); NEUT % 58.7 % (47.0-73.0); PLATELET COUNT AUTOMATED 478 10*3/uL (130-400); WHITE BLOOD COUNT 6.8 10*3/uL (4.8-10.8)
[2020-02-11 08:30] LABS: ALBUMIN 3.4 gm/dl (3.1-4.5); ALKALINE PHOSPHATASE 161 U/L (45-117); BUN 18 mg/dl (7-24); CHLORIDE 108 mmol/L (98-107); GAMMA GLUTAMYL TRANSPEPTIDASE 41 U/L (15-85); PHOSPHOROUS 2.8 mg/dL (2.5-4.9); SGOT/AST 30 IU/L (3-35); SGPT/ALT 40 U/L (12-78); SODIUM 139 mmol/L (136-145); TOTAL PROTEIN 7.4 gm/dL (6.4-8.2)
== END | disposition home or self-care (01) ==
LOC: LAB 07:46
PROVIDERS: Nurse Practitioner Acute Care
DX: Z48.23 Encounter for aftercare following liver transplant (principal); Z41.8 Encounter for other procedures for purposes other than remedying health state; K76.9 Liver disease, unspecified; Z94.4 Liver transplant status

== ENCOUNTER → 2020-02-18 | Outpatient (CLI) | payer SELFPAY ==
[2020-02-18 08:00] LABS: BASO % 0.3 % (0.0-1.0); EOS # 0.4 10*3/uL (0.0-0.4); EOS % 5.8 % (1.0-4.0); HEMATOCRIT 31.8 % (42.0-52.0); LYMPH # 1.6 10*3/uL (1.3-4.4); LYMPH % 23.5 % (27.0-41.0); MEAN CELL VOLUME 75.2 fl (80.0-94.0); MEAN CORPUSCULAR HGB 21.5 pg (27.0-31.0); MEAN CORPUSCULAR HGB CONC 28.6 g/dl (33.0-37.0); MEAN PLATELET VOLUME 8.8 fl (9.6-12.3); MONO # 1.1 10*3/uL (0.1-1.0); NEUT # 3.5 10*3/uL (2.3-7.9); NEUT % 53.1 % (47.0-73.0); PLATELET COUNT AUTOMATED 399 10*3/uL (130-400); RED BLOOD COUNT 4.23 10*6/uL (4.50-5.90); RED CELL DISTRI WIDTH 18.1 % (0-14.5); WHITE BLOOD COUNT 6.6 10*3/uL (4.8-10.8)
[2020-02-18 08:29] LABS: ALBUMIN 3.3 gm/dl (3.1-4.5); ALKALINE PHOSPHATASE 163 U/L (45-117); BUN 19 mg/dl (7-24); CHLORIDE 110 mmol/L (98-107); CREATININE 1.17 mg/dL (0.70-1.30); GAMMA GLUTAMYL TRANSPEPTIDASE 47 U/L (15-85); PHOSPHOROUS 2.7 mg/dL (2.5-4.9); POTASSIUM 3.8 mmol/L (3.5-5.1); SGOT/AST 37 IU/L (3-35); SGPT/ALT 43 U/L (12-78); SODIUM 141 mmol/L (136-145); TOTAL PROTEIN 7.2 gm/dL (6.4-8.2)
== END | disposition home or self-care (01) ==
LOC: LAB 07:32
PROVIDERS: Nurse Practitioner Acute Care
DX: Z48.23 Encounter for aftercare following liver transplant (principal); Z01.812 Encounter for preprocedural laboratory examination; Z01.818 Encounter for other preprocedural examination; K76.9 Liver disease, unspecified; Z94.4 Liver transplant status; E61.2 Magnesium deficiency; R73.02 Impaired glucose tolerance (oral)

== ENCOUNTER → 2020-02-25 | Outpatient (CLI) | payer SELFPAY ==
[2020-02-25 09:23] LABS: BASO % 0.4 % (0.0-1.0); EOS # 0.3 10*3/uL (0.0-0.4); EOS % 4.8 % (1.0-4.0); HEMATOCRIT 32.3 % (42.0-52.0); LYMPH # 1.6 10*3/uL (1.3-4.4); LYMPH % 21.8 % (27.0-41.0); MEAN CELL VOLUME 74.8 fl (80.0-94.0); MEAN CORPUSCULAR HGB 21.8 pg (27.0-31.0); MEAN CORPUSCULAR HGB CONC 29.1 g/dl (33.0-37.0); MEAN PLATELET VOLUME 9.3 fl (9.6-12.3); MONO # 1.2 10*3/uL (0.1-1.0); MONO % 16.8 % (3.0-9.0); NEUT % 55.9 % (47.0-73.0); PLATELET COUNT AUTOMATED 429 10*3/uL (130-400); RED BLOOD COUNT 4.32 10*6/uL (4.50-5.90); WHITE BLOOD COUNT 7.1 10*3/uL (4.8-10.8)
[2020-02-25 09:49] LABS: ALBUMIN 3.3 gm/dl (3.1-4.5); ALKALINE PHOSPHATASE 161 U/L (45-117); BUN 20 mg/dl (7-24); CHLORIDE 109 mmol/L (98-107); CREATININE 1.14 mg/dL (0.70-1.30); GAMMA GLUTAMYL TRANSPEPTIDASE 55 U/L (15-85); PHOSPHOROUS 2.4 mg/dL (2.5-4.9); POTASSIUM 4.1 mmol/L (3.5-5.1); SGOT/AST 31 IU/L (3-35); SGPT/ALT 42 U/L (12-78); SODIUM 141 mmol/L (136-145); TOTAL PROTEIN 7.1 gm/dL (6.4-8.2)
== END | disposition home or self-care (01) ==
LOC: LAB 08:22
PROVIDERS: Nurse Practitioner Acute Care
DX: Z41.8 Encounter for other procedures for purposes other than remedying health state (principal); Z48.23 Encounter for aftercare following liver transplant; K76.9 Liver disease, unspecified; E83.30 Disorder of phosphorus metabolism, unspecified; Z94.4 Liver transplant status

== ENCOUNTER → 2020-03-03 | Outpatient (CLI) | payer SELFPAY ==
[2020-03-03 08:36] LABS: BASO % 0.5 % (0.0-1.0); EOS # 0.3 10*3/uL (0.0-0.4); EOS % 4.1 % (1.0-4.0); HEMATOCRIT 32.6 % (42.0-52.0); LYMPH # 1.3 10*3/uL (1.3-4.4); LYMPH % 20.5 % (27.0-41.0); MEAN CELL VOLUME 74.6 fl (80.0-94.0); MEAN CORPUSCULAR HGB 21.3 pg (27.0-31.0); MEAN CORPUSCULAR HGB CONC 28.5 g/dl (33.0-37.0); MEAN PLATELET VOLUME 9.1 fl (9.6-12.3); MONO % 15.5 % (3.0-9.0); NEUT # 3.8 10*3/uL (2.3-7.9); NEUT % 59.1 % (47.0-73.0); PLATELET COUNT AUTOMATED 438 10*3/uL (130-400); RED BLOOD COUNT 4.37 10*6/uL (4.50-5.90); RED CELL DISTRI WIDTH 17.9 % (0-14.5); WHITE BLOOD COUNT 6.4 10*3/uL (4.8-10.8)
[2020-03-03 09:00] LABS: ALBUMIN 3.1 gm/dl (3.1-4.5); ALKALINE PHOSPHATASE 167 U/L (45-117); BUN 21 mg/dl (7-24); CHLORIDE 109 mmol/L (98-107); CREATININE 0.98 mg/dL (0.70-1.30); GAMMA GLUTAMYL TRANSPEPTIDASE 48 U/L (15-85); SGOT/AST 38 IU/L (3-35); SGPT/ALT 46 U/L (12-78); SODIUM 140 mmol/L (136-145); TOTAL PROTEIN 6.9 gm/dL (6.4-8.2)
== END | disposition home or self-care (01) ==
LOC: LAB 07:53
PROVIDERS: Nurse Practitioner Acute Care
DX: Z41.8 Encounter for other procedures for purposes other than remedying health state (principal); Z48.23 Encounter for aftercare following liver transplant; K76.9 Liver disease, unspecified; E83.30 Disorder of phosphorus metabolism, unspecified; R73.02 Impaired glucose tolerance (oral); Z94.4 Liver transplant status

== ENCOUNTER → 2020-03-10 | Outpatient (CLI) | payer SELFPAY ==
[2020-03-10 08:13] LABS: BASO % 0.5 % (0.0-1.0); EOS # 0.3 10*3/uL (0.0-0.4); EOS % 4.4 % (1.0-4.0); HEMATOCRIT 32.4 % (42.0-52.0); LYMPH # 1.2 10*3/uL (1.3-4.4); LYMPH % 20.9 % (27.0-41.0); MEAN CELL VOLUME 74.5 fl (80.0-94.0); MEAN CORPUSCULAR HGB 21.6 pg (27.0-31.0); MEAN PLATELET VOLUME 9.2 fl (9.6-12.3); MONO # 0.8 10*3/uL (0.1-1.0); MONO % 14.6 % (3.0-9.0); NEUT # 3.4 10*3/uL (2.3-7.9); NEUT % 59.4 % (47.0-73.0); PLATELET COUNT AUTOMATED 435 10*3/uL (130-400); RED BLOOD COUNT 4.35 10*6/uL (4.50-5.90); RED CELL DISTRI WIDTH 17.7 % (0-14.5); WHITE BLOOD COUNT 5.7 10*3/uL (4.8-10.8)
[2020-03-10 08:32] LABS: ALBUMIN 3.5 gm/dl (3.1-4.5); ALKALINE PHOSPHATASE 186 U/L (45-117); BUN 19 mg/dl (7-24); CHLORIDE 107 mmol/L (98-107); CREATININE 1.09 mg/dL (0.70-1.30); GAMMA GLUTAMYL TRANSPEPTIDASE 56 U/L (15-85); POTASSIUM 3.7 mmol/L (3.5-5.1); SGOT/AST 43 IU/L (3-35); SGPT/ALT 50 U/L (12-78); SODIUM 141 mmol/L (136-145); TOTAL PROTEIN 7.3 gm/dL (6.4-8.2)
[2020-03-11 09:08] LABS: HEP B CORE AB, IGM Negative (Negative); HEPATITIS B SURFACE AG Negative (Negative); HEPATITIS C VIRUS ANTIBODY 0.2 (0.0-0.9)
== END | disposition home or self-care (01) ==
LOC: LAB 07:17
PROVIDERS: Nurse Practitioner Acute Care
DX: Z48.23 Encounter for aftercare following liver transplant (principal); Z01.812 Encounter for preprocedural laboratory examination; Z01.818 Encounter for other preprocedural examination; Z41.8 Encounter for other procedures for purposes other than remedying health state; K76.9 Liver disease, unspecified; E61.2 Magnesium deficiency; E83.30 Disorder of phosphorus metabolism, unspecified; R73.02 Impaired glucose tolerance (oral); Z91.89 Other specified personal risk factors, not elsewhere classified; Z94.4 Liver transplant status

== ENCOUNTER → 2020-03-14 | Outpatient (CLI) | payer SELFPAY | END | disposition home or self-care (01) | LOC: RAD 13:21 | DX: S40.851D Superficial foreign body of right upper arm, subsequent encounter (principal); M79.89 Other specified soft tissue disorders; X58.XXXD Exposure to other specified factors, subsequent encounter ==

== ENCOUNTER → 2020-03-17 | Outpatient (CLI) | payer SELFPAY ==
[2020-03-17 08:57] LABS: BASO % 0.3 % (0.0-1.0); EOS # 0.3 10*3/uL (0.0-0.4); EOS % 4.2 % (1.0-4.0); HEMATOCRIT 31.2 % (42.0-52.0); LYMPH # 1.4 10*3/uL (1.3-4.4); LYMPH % 22.3 % (27.0-41.0); MEAN CELL VOLUME 74.3 fl (80.0-94.0); MEAN CORPUSCULAR HGB 21.4 pg (27.0-31.0); MEAN CORPUSCULAR HGB CONC 28.8 g/dl (33.0-37.0); MEAN PLATELET VOLUME 9.9 fl (9.6-12.3); NEUT # 3.7 10*3/uL (2.3-7.9); PLATELET COUNT AUTOMATED 425 10*3/uL (130-400); RED CELL DISTRI WIDTH 17.9 % (0-14.5); WHITE BLOOD COUNT 6.5 10*3/uL (4.8-10.8)
[2020-03-17 09:11] LABS: ALBUMIN 3.3 gm/dl (3.1-4.5); ALKALINE PHOSPHATASE 170 U/L (45-117); BUN 19 mg/dl (7-24); CHLORIDE 110 mmol/L (98-107); CREATININE 1.14 mg/dL (0.70-1.30); GAMMA GLUTAMYL TRANSPEPTIDASE 45 U/L (15-85); POTASSIUM 3.8 mmol/L (3.5-5.1); SGOT/AST 42 IU/L (3-35); SGPT/ALT 46 U/L (12-78); SODIUM 141 mmol/L (136-145); TOTAL PROTEIN 6.8 gm/dL (6.4-8.2)
== END | disposition home or self-care (01) ==
LOC: LAB 07:20
PROVIDERS: Nurse Practitioner Acute Care
DX: Z48.23 Encounter for aftercare following liver transplant (principal); Z41.8 Encounter for other procedures for purposes other than remedying health state; R73.02 Impaired glucose tolerance (oral); K76.9 Liver disease, unspecified; E61.2 Magnesium deficiency; Z94.4 Liver transplant status

== ENCOUNTER → 2020-04-03 | Outpatient (CLI) | payer SELFPAY ==
[2020-04-03 12:18] LABS: BASO % 0.4 % (0.0-1.0); EOS # 0.3 10*3/uL (0.0-0.4); EOS % 3.3 % (1.0-4.0); HEMATOCRIT 29.9 % (42.0-52.0); LYMPH # 1.2 10*3/uL (1.3-4.4); LYMPH % 16.2 % (27.0-41.0); MEAN CELL VOLUME 73.1 fl (80.0-94.0); MEAN CORPUSCULAR HGB 21.3 pg (27.0-31.0); MEAN CORPUSCULAR HGB CONC 29.1 g/dl (33.0-37.0); MONO % 13.5 % (3.0-9.0); NEUT # 5.1 10*3/uL (2.3-7.9); NEUT % 66.3 % (47.0-73.0); PLATELET COUNT AUTOMATED 395 10*3/uL (130-400); RED BLOOD COUNT 4.09 10*6/uL (4.50-5.90); RED CELL DISTRI WIDTH 18.6 % (0-14.5); WHITE BLOOD COUNT 7.7 10*3/uL (4.8-10.8)
[2020-04-03 12:47] LABS: ALBUMIN 3.4 gm/dl (3.1-4.5); ALKALINE PHOSPHATASE 164 U/L (45-117); BUN 26 mg/dl (7-24); CHLORIDE 110 mmol/L (98-107); CREATININE 1.27 mg/dL (0.70-1.30); GAMMA GLUTAMYL TRANSPEPTIDASE 52 U/L (15-85); POTASSIUM 3.7 mmol/L (3.5-5.1); SGOT/AST 37 IU/L (3-35); SGPT/ALT 42 U/L (12-78); SODIUM 139 mmol/L (136-145); TOTAL PROTEIN 7.4 gm/dL (6.4-8.2)
== END | disposition home or self-care (01) ==
LOC: LAB 11:45
PROVIDERS: Nurse Practitioner Acute Care
DX: Z01.818 Encounter for other preprocedural examination (principal); K76.9 Liver disease, unspecified; Z48.23 Encounter for aftercare following liver transplant; Z94.4 Liver transplant status; Z41.8 Encounter for other procedures for purposes other than remedying health state; E83.30 Disorder of phosphorus metabolism, unspecified; R73.02 Impaired glucose tolerance (oral)

== ENCOUNTER → 2020-04-21 | Outpatient (CLI) | payer SELFPAY ==
[2020-04-21 07:37] LABS: ALBUMIN 3.1 gm/dl (3.1-4.5); ALKALINE PHOSPHATASE 178 U/L (45-117); BUN 23 mg/dl (7-24); CHLORIDE 109 mmol/L (98-107); CREATININE 1.25 mg/dL (0.70-1.30); GAMMA GLUTAMYL TRANSPEPTIDASE 35 U/L (15-85); POTASSIUM 3.7 mmol/L (3.5-5.1); SGOT/AST 25 IU/L (3-35); SGPT/ALT 31 U/L (12-78); SODIUM 138 mmol/L (136-145)
[2020-04-21 07:42] LABS: BASO % 0.3 % (0.0-1.0); EOS # 0.4 10*3/uL (0.0-0.4); EOS % 6.1 % (1.0-4.0); HEMATOCRIT 30.8 % (42.0-52.0); LYMPH # 1.3 10*3/uL (1.3-4.4); LYMPH % 19.2 % (27.0-41.0); MEAN CELL VOLUME 72.1 fl (80.0-94.0); MEAN CORPUSCULAR HGB 21.3 pg (27.0-31.0); MEAN CORPUSCULAR HGB CONC 29.5 g/dl (33.0-37.0); MONO # 1.1 10*3/uL (0.1-1.0); MONO % 16.7 % (3.0-9.0); NEUT # 3.8 10*3/uL (2.3-7.9); NEUT % 57.4 % (47.0-73.0); PLATELET COUNT AUTOMATED 414 10*3/uL (130-400); RED BLOOD COUNT 4.27 10*6/uL (4.50-5.90); WHITE BLOOD COUNT 6.6 10*3/uL (4.8-10.8)
== END | disposition home or self-care (01) ==
LOC: LAB 06:28
PROVIDERS: Nurse Practitioner Acute Care
DX: Z48.23 Encounter for aftercare following liver transplant (principal); Z41.8 Encounter for other procedures for purposes other than remedying health state; R73.02 Impaired glucose tolerance (oral); E61.2 Magnesium deficiency; E83.30 Disorder of phosphorus metabolism, unspecified; K76.9 Liver disease, unspecified; Z94.4 Liver transplant status

== ENCOUNTER → 2020-05-11 | Outpatient (CLI) | payer SELFPAY ==
[2020-05-11 07:31] LABS: BASO % 0.4 % (0.0-1.0); EOS # 0.4 10*3/uL (0.0-0.4); EOS % 5.5 % (1.0-4.0); HEMATOCRIT 30.6 % (42.0-52.0); LYMPH # 1.4 10*3/uL (1.3-4.4); LYMPH % 20.4 % (27.0-41.0); MEAN CELL VOLUME 73.7 fl (80.0-94.0); MEAN CORPUSCULAR HGB 21.4 pg (27.0-31.0); MEAN CORPUSCULAR HGB CONC 29.1 g/dl (33.0-37.0); MONO # 1.1 10*3/uL (0.1-1.0); MONO % 16.2 % (3.0-9.0); NEUT # 3.8 10*3/uL (2.3-7.9); NEUT % 57.2 % (47.0-73.0); PLATELET COUNT AUTOMATED 394 10*3/uL (130-400); RED BLOOD COUNT 4.15 10*6/uL (4.50-5.90); RED CELL DISTRI WIDTH 19.9 % (0-14.5); WHITE BLOOD COUNT 6.7 10*3/uL (4.8-10.8)
[2020-05-11 07:49] LABS: ALBUMIN 3.2 gm/dl (3.1-4.5); ALKALINE PHOSPHATASE 184 U/L (45-117); BUN 20 mg/dl (7-24); CHLORIDE 108 mmol/L (98-107); CREATININE 1.18 mg/dL (0.70-1.30); GAMMA GLUTAMYL TRANSPEPTIDASE 52 U/L (15-85); POTASSIUM 3.7 mmol/L (3.5-5.1); SGOT/AST 37 IU/L (3-35); SGPT/ALT 39 U/L (12-78); SODIUM 138 mmol/L (136-145); TOTAL PROTEIN 7.1 gm/dL (6.4-8.2)
== END | disposition home or self-care (01) ==
LOC: LAB 07:01
PROVIDERS: Nurse Practitioner Acute Care
DX: Z01.818 Encounter for other preprocedural examination (principal); Z01.812 Encounter for preprocedural laboratory examination; Z48.23 Encounter for aftercare following liver transplant; Z41.8 Encounter for other procedures for purposes other than remedying health state; E61.2 Magnesium deficiency; K76.9 Liver disease, unspecified; R73.02 Impaired glucose tolerance (oral); Z94.4 Liver transplant status

== ENCOUNTER → 2020-06-08 | Outpatient (CLI) | payer SELFPAY ==
[2020-06-08 08:42] LABS: BASO % 0.2 % (0.0-1.0); EOS # 0.1 10*3/uL (0.0-0.4); EOS % 2.1 % (1.0-4.0); LYMPH # 0.6 10*3/uL (1.3-4.4); LYMPH % 10.1 % (27.0-41.0); MEAN CELL VOLUME 73.6 fl (80.0-94.0); MEAN CORPUSCULAR HGB 21.2 pg (27.0-31.0); MEAN CORPUSCULAR HGB CONC 28.8 g/dl (33.0-37.0); MEAN PLATELET VOLUME 9.1 fl (9.6-12.3); MONO # 0.8 10*3/uL (0.1-1.0); MONO % 14.1 % (3.0-9.0); NEUT # 4.2 10*3/uL (2.3-7.9); NEUT % 73.3 % (47.0-73.0); PLATELET COUNT AUTOMATED 337 10*3/uL (130-400); RED BLOOD COUNT 4.62 10*6/uL (4.50-5.90); RED CELL DISTRI WIDTH 21.1 % (0-14.5); WHITE BLOOD COUNT 5.8 10*3/uL (4.8-10.8)
[2020-06-08 09:14] LABS: ALBUMIN 3.2 gm/dl (3.1-4.5); ALKALINE PHOSPHATASE 158 U/L (45-117); BUN 16 mg/dl (7-24); CHLORIDE 108 mmol/L (98-107); CHOLESTEROL 185 mg/dL (<200); CREATININE 1.17 mg/dL (0.70-1.30); GAMMA GLUTAMYL TRANSPEPTIDASE 56 U/L (15-85); HDL CHOLESTEROL 44 mg/dl (40-60); LDL CHOLESTEROL 120 mg/dL (9-159); POTASSIUM 3.5 mmol/L (3.5-5.1); SGOT/AST 38 IU/L (3-35); SGPT/ALT 36 U/L (12-78); SODIUM 139 mmol/L (136-145); TOTAL PROTEIN 7.3 gm/dL (6.4-8.2); TRIGLYCERIDES 106 mg/dl (<150); VLDL CHOLESTEROL 21 mg/dL (6-40)
== END | disposition home or self-care (01) ==
LOC: LAB 08:02
PROVIDERS: Nurse Practitioner Acute Care
DX: Z01.818 Encounter for other preprocedural examination (principal); K76.9 Liver disease, unspecified; E83.30 Disorder of phosphorus metabolism, unspecified; R73.02 Impaired glucose tolerance (oral); Z01.812 Encounter for preprocedural laboratory examination; Z41.8 Encounter for other procedures for purposes other than remedying health state; Z94.4 Liver transplant status; Z48.23 Encounter for aftercare following liver transplant

== ENCOUNTER → 2020-06-29 | Outpatient (CLI) | payer SELFPAY ==
[2020-06-29 08:12] LABS: BASO % 0.3 % (0.0-1.0); EOS # 0.2 10*3/uL (0.0-0.4); EOS % 3.4 % (1.0-4.0); HEMATOCRIT 31.5 % (42.0-52.0); LYMPH # 1.3 10*3/uL (1.3-4.4); LYMPH % 20.7 % (27.0-41.0); MEAN CELL VOLUME 73.8 fl (80.0-94.0); MEAN CORPUSCULAR HGB 21.3 pg (27.0-31.0); MEAN CORPUSCULAR HGB CONC 28.9 g/dl (33.0-37.0); MEAN PLATELET VOLUME 8.8 fl (9.6-12.3); MONO # 0.9 10*3/uL (0.1-1.0); MONO % 14.7 % (3.0-9.0); NEUT # 3.9 10*3/uL (2.3-7.9); NEUT % 60.6 % (47.0-73.0); PLATELET COUNT AUTOMATED 365 10*3/uL (130-400); RED BLOOD COUNT 4.27 10*6/uL (4.50-5.90); RED CELL DISTRI WIDTH 20.8 % (0-14.5); WHITE BLOOD COUNT 6.4 10*3/uL (4.8-10.8)
[2020-06-29 08:27] LABS: ALBUMIN 3.4 gm/dl (3.1-4.5); ALKALINE PHOSPHATASE 163 U/L (45-117); BUN 21 mg/dl (7-24); CHLORIDE 110 mmol/L (98-107); CREATININE 1.18 mg/dL (0.70-1.30); GAMMA GLUTAMYL TRANSPEPTIDASE 52 U/L (15-85); POTASSIUM 3.8 mmol/L (3.5-5.1); SGOT/AST 26 IU/L (3-35); SGPT/ALT 31 U/L (12-78); SODIUM 140 mmol/L (136-145); TOTAL PROTEIN 7.2 gm/dL (6.4-8.2)
== END | disposition home or self-care (01) ==
LOC: LAB 07:48
PROVIDERS: ATTEND Nurse Practitioner Acute Care
DX: Z41.8 Encounter for other procedures for purposes other than remedying health state (principal); K76.9 Liver disease, unspecified; E61.2 Magnesium deficiency; E83.30 Disorder of phosphorus metabolism, unspecified; R73.02 Impaired glucose tolerance (oral); Z94.4 Liver transplant status; Z01.812 Encounter for preprocedural laboratory examination; Z01.818 Encounter for other preprocedural examination

== ENCOUNTER → 2020-07-13 | Outpatient (CLI) | payer SELFPAY ==
[2020-07-13 08:25] LABS: BASO % 0.3 % (0.0-1.0); EOS # 0.2 10*3/uL (0.0-0.4); EOS % 2.4 % (1.0-4.0); HEMATOCRIT 32.9 % (42.0-52.0); LYMPH # 1.4 10*3/uL (1.3-4.4); MEAN CELL VOLUME 73.4 fl (80.0-94.0); MEAN CORPUSCULAR HGB 21.2 pg (27.0-31.0); MEAN CORPUSCULAR HGB CONC 28.9 g/dl (33.0-37.0); MEAN PLATELET VOLUME 9.2 fl (9.6-12.3); MONO # 0.9 10*3/uL (0.1-1.0); MONO % 14.7 % (3.0-9.0); NEUT # 3.7 10*3/uL (2.3-7.9); NEUT % 60.4 % (47.0-73.0); PLATELET COUNT AUTOMATED 383 10*3/uL (130-400); RED BLOOD COUNT 4.48 10*6/uL (4.50-5.90); RED CELL DISTRI WIDTH 20.4 % (0-14.5); WHITE BLOOD COUNT 6.1 10*3/uL (4.8-10.8)
[2020-07-13 08:55] LABS: ALBUMIN 3.3 gm/dl (3.1-4.5); ALKALINE PHOSPHATASE 190 U/L (45-117); BUN 16 mg/dl (7-24); CHLORIDE 111 mmol/L (98-107); CREATININE 1.13 mg/dL (0.70-1.30); GAMMA GLUTAMYL TRANSPEPTIDASE 76 U/L (15-85); POTASSIUM 3.7 mmol/L (3.5-5.1); SGOT/AST 30 IU/L (3-35); SGPT/ALT 46 U/L (12-78); SODIUM 141 mmol/L (136-145); TOTAL PROTEIN 7.2 gm/dL (6.4-8.2)
== END | disposition home or self-care (01) ==
LOC: LAB 07:39
PROVIDERS: ATTEND Nurse Practitioner Acute Care
DX: Z48.23 Encounter for aftercare following liver transplant (principal); Z41.8 Encounter for other procedures for purposes other than remedying health state; Z01.818 Encounter for other preprocedural examination; E61.2 Magnesium deficiency; E83.30 Disorder of phosphorus metabolism, unspecified; E73.0 Congenital lactase deficiency; K76.9 Liver disease, unspecified; R73.02 Impaired glucose tolerance (oral); Z94.4 Liver transplant status

== ENCOUNTER → 2020-07-27 | Outpatient (CLI) | payer SELFPAY ==
[2020-07-27 08:15] LABS: BASO % 0.3 % (0.0-1.0); EOS # 0.3 10*3/uL (0.0-0.4); EOS % 4.1 % (1.0-4.0); LYMPH # 1.4 10*3/uL (1.3-4.4); LYMPH % 23.5 % (27.0-41.0); MEAN CELL VOLUME 73.7 fl (80.0-94.0); MEAN CORPUSCULAR HGB 21.4 pg (27.0-31.0); MEAN CORPUSCULAR HGB CONC 29.1 g/dl (33.0-37.0); MEAN PLATELET VOLUME 9.4 fl (9.6-12.3); MONO # 0.8 10*3/uL (0.1-1.0); MONO % 13.1 % (3.0-9.0); NEUT # 3.6 10*3/uL (2.3-7.9); NEUT % 58.8 % (47.0-73.0); PLATELET COUNT AUTOMATED 389 10*3/uL (130-400); RED BLOOD COUNT 4.34 10*6/uL (4.50-5.90); RED CELL DISTRI WIDTH 19.9 % (0-14.5); WHITE BLOOD COUNT 6.1 10*3/uL (4.8-10.8)
[2020-07-27 08:23] LABS: ALBUMIN 3.3 gm/dl (3.1-4.5); ALKALINE PHOSPHATASE 162 U/L (45-117); BUN 16 mg/dl (7-24); CHLORIDE 110 mmol/L (98-107); CREATININE 1.02 mg/dL (0.70-1.30); GAMMA GLUTAMYL TRANSPEPTIDASE 44 U/L (15-85); POTASSIUM 3.6 mmol/L (3.5-5.1); SGOT/AST 23 IU/L (3-35); SGPT/ALT 31 U/L (12-78); SODIUM 140 mmol/L (136-145)
== END | disposition home or self-care (01) ==
LOC: LAB 07:26
PROVIDERS: ATTEND Nurse Practitioner Acute Care
DX: Z01.818 Encounter for other preprocedural examination (principal); K76.9 Liver disease, unspecified; E61.2 Magnesium deficiency; R73.02 Impaired glucose tolerance (oral); Z48.23 Encounter for aftercare following liver transplant; Z41.8 Encounter for other procedures for purposes other than remedying health state; Z01.812 Encounter for preprocedural laboratory examination; Z94.4 Liver transplant status

== ENCOUNTER → 2020-08-10 | Outpatient (CLI) | payer SELFPAY ==
[2020-08-10 07:41] LABS: BASO % 0.3 % (0.0-1.0); EOS # 0.2 10*3/uL (0.0-0.4); EOS % 3.5 % (1.0-4.0); HEMATOCRIT 32.2 % (42.0-52.0); LYMPH # 1.3 10*3/uL (1.3-4.4); LYMPH % 19.2 % (27.0-41.0); MEAN CORPUSCULAR HGB 21.3 pg (27.0-31.0); MEAN CORPUSCULAR HGB CONC 29.2 g/dl (33.0-37.0); MEAN PLATELET VOLUME 9.2 fl (9.6-12.3); MONO # 1.1 10*3/uL (0.1-1.0); MONO % 15.8 % (3.0-9.0); NEUT % 60.9 % (47.0-73.0); PLATELET COUNT AUTOMATED 391 10*3/uL (130-400); RED BLOOD COUNT 4.41 10*6/uL (4.50-5.90); RED CELL DISTRI WIDTH 19.7 % (0-14.5); WHITE BLOOD COUNT 6.6 10*3/uL (4.8-10.8)
[2020-08-10 08:12] LABS: ALBUMIN 3.3 gm/dl (3.1-4.5); ALKALINE PHOSPHATASE 181 U/L (45-117); BUN 20 mg/dl (7-24); CHLORIDE 109 mmol/L (98-107); CREATININE 1.07 mg/dL (0.70-1.30); GAMMA GLUTAMYL TRANSPEPTIDASE 57 U/L (15-85); POTASSIUM 3.5 mmol/L (3.5-5.1); SGOT/AST 36 IU/L (3-35); SGPT/ALT 36 U/L (12-78); SODIUM 140 mmol/L (136-145); TOTAL PROTEIN 7.2 gm/dL (6.4-8.2)
== END | disposition home or self-care (01) ==
LOC: LAB 07:24
PROVIDERS: ATTEND Nurse Practitioner Acute Care
DX: Z01.812 Encounter for preprocedural laboratory examination (principal); K76.9 Liver disease, unspecified; E83.30 Disorder of phosphorus metabolism, unspecified; R73.02 Impaired glucose tolerance (oral); Z48.23 Encounter for aftercare following liver transplant; Z41.8 Encounter for other procedures for purposes other than remedying health state; Z94.4 Liver transplant status

== ENCOUNTER → 2020-08-24 | Outpatient (CLI) | payer SELFPAY ==
[2020-08-24 07:56] LABS: BASO % 0.5 % (0.0-1.0); EOS # 0.2 10*3/uL (0.0-0.4); EOS % 2.7 % (1.0-4.0); LYMPH # 1.2 10*3/uL (1.3-4.4); LYMPH % 18.3 % (27.0-41.0); MEAN CELL VOLUME 73.4 fl (80.0-94.0); MEAN CORPUSCULAR HGB 21.1 pg (27.0-31.0); MEAN CORPUSCULAR HGB CONC 28.8 g/dl (33.0-37.0); MEAN PLATELET VOLUME 9.1 fl (9.6-12.3); MONO # 0.9 10*3/uL (0.1-1.0); MONO % 14.3 % (3.0-9.0); NEUT % 63.9 % (47.0-73.0); PLATELET COUNT AUTOMATED 373 10*3/uL (130-400); RED BLOOD COUNT 4.36 10*6/uL (4.50-5.90); RED CELL DISTRI WIDTH 19.6 % (0-14.5); WHITE BLOOD COUNT 6.3 10*3/uL (4.8-10.8)
[2020-08-24 08:24] LABS: ALBUMIN 3.3 gm/dl (3.1-4.5); ALKALINE PHOSPHATASE 159 U/L (45-117); BUN 19 mg/dl (7-24); CHLORIDE 111 mmol/L (98-107); CREATININE 1.08 mg/dL (0.70-1.30); GAMMA GLUTAMYL TRANSPEPTIDASE 32 U/L (15-85); POTASSIUM 3.7 mmol/L (3.5-5.1); SGOT/AST 24 IU/L (3-35); SGPT/ALT 26 U/L (12-78); SODIUM 143 mmol/L (136-145); TOTAL PROTEIN 7.2 gm/dL (6.4-8.2)
== END | disposition home or self-care (01) ==
LOC: LAB 07:24
PROVIDERS: ATTEND Nurse Practitioner Acute Care
DX: Z01.812 Encounter for preprocedural laboratory examination (principal); Z01.818 Encounter for other preprocedural examination; K76.9 Liver disease, unspecified; E61.2 Magnesium deficiency; R73.02 Impaired glucose tolerance (oral); Z94.4 Liver transplant status; Z48.23 Encounter for aftercare following liver transplant

== ENCOUNTER 2020-08-25 18:59 | Emergency (ER) | payer SELFPAY ==
[~2020-08-25] VITALS: Ht 172.7 cm; Wt 69.4 kg
[2020-08-25 19:16] VITALS: BP 140/72
== END 2020-08-25 19:44 | disposition home or self-care (01) ==
LOC: ED 18:59
DX: S30.21XA Contusion of penis, initial encounter (principal); Z79.82 Long term (current) use of aspirin; Z79.899 Other long term (current) drug therapy; X58.XXXA Exposure to other specified factors, initial encounter; Y93.89 Activity, other specified; Y92.89 Other specified places as the place of occurrence of the external cause; Y99.8 Other external cause status

== ENCOUNTER → 2020-10-13 | Outpatient (CLI) | payer SELFPAY ==
[2020-10-13 08:28] LABS: BASO % 0.2 % (0.0-1.0); EOS # 0.2 10*3/uL (0.0-0.4); EOS % 3.3 % (1.0-4.0); HEMATOCRIT 33.2 % (42.0-52.0); LYMPH # 1.2 10*3/uL (1.3-4.4); LYMPH % 20.2 % (27.0-41.0); MEAN CELL VOLUME 73.3 fl (80.0-94.0); MEAN CORPUSCULAR HGB 21.2 pg (27.0-31.0); MEAN CORPUSCULAR HGB CONC 28.9 g/dl (33.0-37.0); MEAN PLATELET VOLUME 9.4 fl (9.6-12.3); MONO # 0.8 10*3/uL (0.1-1.0); MONO % 13.7 % (3.0-9.0); NEUT # 3.8 10*3/uL (2.3-7.9); NEUT % 62.3 % (47.0-73.0); PLATELET COUNT AUTOMATED 391 10*3/uL (130-400); RED BLOOD COUNT 4.53 10*6/uL (4.50-5.90); RED CELL DISTRI WIDTH 19.1 % (0-14.5); WHITE BLOOD COUNT 6.2 10*3/uL (4.8-10.8)
[2020-10-13 08:56] LABS: ALBUMIN 3.3 gm/dl (3.1-4.5); ALKALINE PHOSPHATASE 177 U/L (45-117); BUN 22 mg/dl (7-24); CHLORIDE 110 mmol/L (98-107); CHOLESTEROL 238 mg/dL (<200); CREATININE 1.11 mg/dL (0.70-1.30); GAMMA GLUTAMYL TRANSPEPTIDASE 56 U/L (15-85); HDL CHOLESTEROL 53 mg/dl (40-60); LDL CHOLESTEROL 163 mg/dL (9-159); POTASSIUM 4.1 mmol/L (3.5-5.1); SGOT/AST 26 IU/L (3-35); SGPT/ALT 33 U/L (12-78); SODIUM 139 mmol/L (136-145); TOTAL PROTEIN 7.2 gm/dL (6.4-8.2); TRIGLYCERIDES 108 mg/dl (<150); VLDL CHOLESTEROL 22 mg/dL (6-40)
== END | disposition home or self-care (01) ==
LOC: LAB 07:35
PROVIDERS: ATTEND Nurse Practitioner Acute Care
DX: Z01.812 Encounter for preprocedural laboratory examination (principal); K76.9 Liver disease, unspecified; E61.2 Magnesium deficiency; R73.02 Impaired glucose tolerance (oral); Z94.4 Liver transplant status; Z01.818 Encounter for other preprocedural examination; Z48.23 Encounter for aftercare following liver transplant; Z41.8 Encounter for other procedures for purposes other than remedying health state

== ENCOUNTER → 2020-11-23 | Outpatient (CLI) | payer SELFPAY ==
[2020-11-23 08:18] LABS: BASO % 0.3 % (0.0-1.0); EOS # 0.2 10*3/uL (0.0-0.4); EOS % 3.4 % (1.0-4.0); HEMATOCRIT 33.5 % (42.0-52.0); LYMPH # 1.4 10*3/uL (1.3-4.4); LYMPH % 20.4 % (27.0-41.0); MEAN CELL VOLUME 73.8 fl (80.0-94.0); MEAN CORPUSCULAR HGB 21.4 pg (27.0-31.0); MEAN PLATELET VOLUME 8.9 fl (9.6-12.3); MONO # 1.1 10*3/uL (0.1-1.0); MONO % 15.9 % (3.0-9.0); NEUT # 4.1 10*3/uL (2.3-7.9); NEUT % 59.7 % (47.0-73.0); PLATELET COUNT AUTOMATED 367 10*3/uL (130-400); RED BLOOD COUNT 4.54 10*6/uL (4.50-5.90); RED CELL DISTRI WIDTH 20.2 % (0-14.5); WHITE BLOOD COUNT 6.9 10*3/uL (4.8-10.8)
[2020-11-23 08:45] LABS: ALBUMIN 3.4 gm/dl (3.1-4.5); ALKALINE PHOSPHATASE 180 U/L (45-117); BUN 15 mg/dl (7-24); CHLORIDE 110 mmol/L (98-107); CREATININE 1.13 mg/dL (0.70-1.30); GAMMA GLUTAMYL TRANSPEPTIDASE 67 U/L (15-85); POTASSIUM 3.7 mmol/L (3.5-5.1); SGOT/AST 22 IU/L (3-35); SGPT/ALT 39 U/L (12-78); SODIUM 141 mmol/L (136-145); TOTAL PROTEIN 7.1 gm/dL (6.4-8.2)
== END | disposition home or self-care (01) ==
LOC: LAB 07:46
PROVIDERS: ATTEND Nurse Practitioner Acute Care
DX: Z48.23 Encounter for aftercare following liver transplant (principal); K76.9 Liver disease, unspecified; Z41.8 Encounter for other procedures for purposes other than remedying health state; Z94.4 Liver transplant status

== ENCOUNTER → 2020-12-22 | Outpatient (CLI) | payer SELFPAY ==
[2020-12-22 07:55] LABS: BASO % 0.5 % (0.0-1.0); EOS # 0.2 10*3/uL (0.0-0.4); EOS % 3.8 % (1.0-4.0); HEMATOCRIT 33.2 % (42.0-52.0); LYMPH # 1.4 10*3/uL (1.3-4.4); LYMPH % 21.8 % (27.0-41.0); MEAN CELL VOLUME 74.8 fl (80.0-94.0); MEAN CORPUSCULAR HGB 21.6 pg (27.0-31.0); MEAN CORPUSCULAR HGB CONC 28.9 g/dl (33.0-37.0); MEAN PLATELET VOLUME 8.8 fl (9.6-12.3); MONO % 15.3 % (3.0-9.0); NEUT # 3.7 10*3/uL (2.3-7.9); NEUT % 58.3 % (47.0-73.0); PLATELET COUNT AUTOMATED 346 10*3/uL (130-400); RED BLOOD COUNT 4.44 10*6/uL (4.50-5.90); RED CELL DISTRI WIDTH 19.9 % (0-14.5); WHITE BLOOD COUNT 6.3 10*3/uL (4.8-10.8)
[2020-12-22 08:24] LABS: ALBUMIN 3.3 gm/dl (3.1-4.5); ALKALINE PHOSPHATASE 182 U/L (45-117); BUN 21 mg/dl (7-24); CHLORIDE 112 mmol/L (98-107); CREATININE 0.94 mg/dL (0.70-1.30); GAMMA GLUTAMYL TRANSPEPTIDASE 64 U/L (15-85); POTASSIUM 3.8 mmol/L (3.5-5.1); SGOT/AST 35 IU/L (3-35); SGPT/ALT 45 U/L (12-78); SODIUM 141 mmol/L (136-145); TOTAL PROTEIN 7.2 gm/dL (6.4-8.2)
== END | disposition home or self-care (01) ==
LOC: LAB 07:24
PROVIDERS: ATTEND Nurse Practitioner Acute Care
DX: Z01.812 Encounter for preprocedural laboratory examination (principal); R73.02 Impaired glucose tolerance (oral); E61.2 Magnesium deficiency; K76.9 Liver disease, unspecified; Z48.23 Encounter for aftercare following liver transplant; Z94.4 Liver transplant status; Z41.8 Encounter for other procedures for purposes other than remedying health state; Z01.818 Encounter for other preprocedural examination

== ENCOUNTER → 2021-01-19 | Outpatient (CLI) | payer SELFPAY ==
[2021-01-19 08:09] LABS: BASO % 0.2 % (0.0-1.0); EOS # 0.2 10*3/uL (0.0-0.4); EOS % 3.3 % (1.0-4.0); HEMATOCRIT 33.4 % (42.0-52.0); LYMPH # 1.4 10*3/uL (1.3-4.4); MEAN CELL VOLUME 76.4 fl (80.0-94.0); MEAN CORPUSCULAR HGB 22.4 pg (27.0-31.0); MEAN CORPUSCULAR HGB CONC 29.3 g/dl (33.0-37.0); MEAN PLATELET VOLUME 8.7 fl (9.6-12.3); MONO % 16.7 % (3.0-9.0); NEUT # 3.1 10*3/uL (2.3-7.9); NEUT % 54.5 % (47.0-73.0); PLATELET COUNT AUTOMATED 349 10*3/uL (130-400); RED BLOOD COUNT 4.37 10*6/uL (4.50-5.90); RED CELL DISTRI WIDTH 19.6 % (0-14.5); WHITE BLOOD COUNT 5.8 10*3/uL (4.8-10.8)
[2021-01-19 08:40] LABS: ALBUMIN 3.1 gm/dl (3.1-4.5); ALKALINE PHOSPHATASE 173 U/L (45-117); BUN 19 mg/dl (7-24); CHLORIDE 110 mmol/L (98-107); CHOLESTEROL 195 mg/dL (<200); CREATININE 1.08 mg/dL (0.70-1.30); GAMMA GLUTAMYL TRANSPEPTIDASE 50 U/L (15-85); HDL CHOLESTEROL 45 mg/dl (40-60); LDL CHOLESTEROL 134 mg/dL (9-159); POTASSIUM 3.7 mmol/L (3.5-5.1); SGOT/AST 27 IU/L (3-35); SGPT/ALT 35 U/L (12-78); SODIUM 140 mmol/L (136-145); TRIGLYCERIDES 80 mg/dl (<150); VLDL CHOLESTEROL 16 mg/dL (6-40)
== END | disposition home or self-care (01) ==
LOC: LAB 07:47
PROVIDERS: ATTEND Nurse Practitioner Acute Care
DX: Z41.8 Encounter for other procedures for purposes other than remedying health state (principal); R73.02 Impaired glucose tolerance (oral); K76.9 Liver disease, unspecified; E61.2 Magnesium deficiency; Z48.23 Encounter for aftercare following liver transplant; Z94.4 Liver transplant status

== ENCOUNTER → 2021-02-16 | Outpatient (CLI) | payer SELFPAY ==
[2021-02-16 08:02] LABS: BASO % 0.2 % (0.0-1.0); EOS # 0.2 10*3/uL (0.0-0.4); EOS % 2.5 % (1.0-4.0); LYMPH # 1.4 10*3/uL (1.3-4.4); LYMPH % 22.6 % (27.0-41.0); MEAN CELL VOLUME 74.8 fl (80.0-94.0); MEAN CORPUSCULAR HGB 22.2 pg (27.0-31.0); MEAN CORPUSCULAR HGB CONC 29.7 g/dl (33.0-37.0); MEAN PLATELET VOLUME 8.8 fl (9.6-12.3); MONO % 14.9 % (3.0-9.0); NEUT # 3.8 10*3/uL (2.3-7.9); NEUT % 59.3 % (47.0-73.0); PLATELET COUNT AUTOMATED 427 10*3/uL (130-400); RED BLOOD COUNT 4.81 10*6/uL (4.50-5.90); RED CELL DISTRI WIDTH 18.7 % (0-14.5); WHITE BLOOD COUNT 6.4 10*3/uL (4.8-10.8)
[2021-02-16 08:33] LABS: ALBUMIN 3.4 gm/dl (3.1-4.5); ALKALINE PHOSPHATASE 196 U/L (45-117); BUN 21 mg/dl (7-24); CHLORIDE 108 mmol/L (98-107); CREATININE 1.12 mg/dL (0.70-1.30); GAMMA GLUTAMYL TRANSPEPTIDASE 49 U/L (15-85); POTASSIUM 4.1 mmol/L (3.5-5.1); SGOT/AST 25 IU/L (3-35); SGPT/ALT 39 U/L (12-78); SODIUM 140 mmol/L (136-145); TOTAL PROTEIN 7.2 gm/dL (6.4-8.2)
[2021-02-17 04:06] LABS: AFP TUMOR MARKER 2.2 ng/mL (0.0-8.3)
== END | disposition home or self-care (01) ==
LOC: LAB 07:41
PROVIDERS: Nurse Practitioner Acute Care; ATTEND Surgery
DX: K76.9 Liver disease, unspecified (principal); E61.2 Magnesium deficiency; R73.02 Impaired glucose tolerance (oral); E83.30 Disorder of phosphorus metabolism, unspecified; Z48.23 Encounter for aftercare following liver transplant; Z94.4 Liver transplant status

== ENCOUNTER → 2021-03-23 | Outpatient (CLI) | payer SELFPAY ==
[2021-03-23 07:36] LABS: BASO % 0.3 % (0.0-1.0); EOS # 0.2 10*3/uL (0.0-0.4); EOS % 3.9 % (1.0-4.0); HEMATOCRIT 36.9 % (42.0-52.0); LYMPH # 1.3 10*3/uL (1.3-4.4); LYMPH % 21.5 % (27.0-41.0); MEAN CELL VOLUME 77.5 fl (80.0-94.0); MEAN CORPUSCULAR HGB 23.1 pg (27.0-31.0); MEAN CORPUSCULAR HGB CONC 29.8 g/dl (33.0-37.0); MEAN PLATELET VOLUME 8.9 fl (9.6-12.3); MONO # 0.9 10*3/uL (0.1-1.0); MONO % 14.9 % (3.0-9.0); NEUT # 3.4 10*3/uL (2.3-7.9); NEUT % 58.5 % (47.0-73.0); PLATELET COUNT AUTOMATED 353 10*3/uL (130-400); RED BLOOD COUNT 4.76 10*6/uL (4.50-5.90); RED CELL DISTRI WIDTH 19.4 % (0-14.5); WHITE BLOOD COUNT 5.9 10*3/uL (4.8-10.8)
[2021-03-23 08:12] LABS: ALBUMIN 3.1 gm/dl (3.1-4.5); BUN 17 mg/dl (7-24); CHLORIDE 109 mmol/L (98-107); CREATININE 1.13 mg/dL (0.70-1.30); GAMMA GLUTAMYL TRANSPEPTIDASE 54 U/L (15-85); POTASSIUM 3.9 mmol/L (3.5-5.1); SGOT/AST 47 IU/L (3-35); SGPT/ALT 59 U/L (12-78); SODIUM 137 mmol/L (136-145); TOTAL PROTEIN 7.1 gm/dL (6.4-8.2)
[2021-03-23 08:14] LABS: ALKALINE PHOSPHATASE 191 U/L (45-117)
== END | disposition home or self-care (01) ==
LOC: LAB 06:55
PROVIDERS: Nurse Practitioner Acute Care; ATTEND Surgery
DX: Z48.23 Encounter for aftercare following liver transplant (principal); K76.9 Liver disease, unspecified; E83.30 Disorder of phosphorus metabolism, unspecified; R73.02 Impaired glucose tolerance (oral); Z41.8 Encounter for other procedures for purposes other than remedying health state; Z94.4 Liver transplant status

== ENCOUNTER → 2021-04-16 | Outpatient (CLI) | payer SELFPAY | END | disposition home or self-care (01) | LOC: RAD 08:47 | PROVIDERS: ATTEND Nurse Practitioner Family | DX: M77.10 Lateral epicondylitis, unspecified elbow (principal) ==

== ENCOUNTER → 2021-04-24 | Outpatient (CLI) | payer SELFPAY ==
[2021-04-24 07:53] LABS: BASO % 0.1 % (0.0-1.0); EOS % 0.1 % (1.0-4.0); HEMATOCRIT 37.2 % (42.0-52.0); LYMPH # 0.9 10*3/uL (1.3-4.4); LYMPH % 8.4 % (27.0-41.0); MEAN CELL VOLUME 77.2 fl (80.0-94.0); MEAN CORPUSCULAR HGB 23.4 pg (27.0-31.0); MEAN CORPUSCULAR HGB CONC 30.4 g/dl (33.0-37.0); MEAN PLATELET VOLUME 9.1 fl (9.6-12.3); MONO # 0.8 10*3/uL (0.1-1.0); MONO % 7.6 % (3.0-9.0); NEUT # 8.6 10*3/uL (2.3-7.9); PLATELET COUNT AUTOMATED 386 10*3/uL (130-400); RED BLOOD COUNT 4.82 10*6/uL (4.50-5.90); RED CELL DISTRI WIDTH 19.6 % (0-14.5); WHITE BLOOD COUNT 10.4 10*3/uL (4.8-10.8)
[2021-04-24 08:32] LABS: ALBUMIN 3.1 gm/dl (3.1-4.5); BUN 20 mg/dl (7-24); CHLORIDE 110 mmol/L (98-107); CREATININE 0.99 mg/dL (0.70-1.30); GAMMA GLUTAMYL TRANSPEPTIDASE 57 U/L (15-85); POTASSIUM 4.2 mmol/L (3.5-5.1); SGOT/AST 15 IU/L (3-35); SGPT/ALT 34 U/L (12-78); SODIUM 140 mmol/L (136-145)
[2021-04-24 08:36] LABS: ALKALINE PHOSPHATASE 182 U/L (45-117); CHOLESTEROL 231 mg/dL (<200); LDL CHOLESTEROL 160 mg/dL (9-159); TOTAL PROTEIN 7.4 gm/dL (6.4-8.2); TRIGLYCERIDES 139 mg/dl (<150)
[2021-04-25 04:06] LABS: AFP TUMOR MARKER 2.3 ng/mL (0.0-8.3)
== END | disposition home or self-care (01) ==
LOC: LAB 06:50
PROVIDERS: Nurse Practitioner Acute Care; ATTEND Surgery
DX: Z94.4 Liver transplant status (principal)

== ENCOUNTER → 2021-05-10 | Outpatient (CLI) | payer SELFPAY | END | disposition home or self-care (01) | LOC: US 08:49 | PROVIDERS: ATTEND Surgery | DX: Z94.4 Liver transplant status (principal); Z90.49 Acquired absence of other specified parts of digestive tract ==

== ENCOUNTER → 2021-05-21 | Outpatient (CLI) | payer SELFPAY | END | disposition home or self-care (01) | LOC: RAD 11:33 | PROVIDERS: ATTEND Preventive Medicine Occupational Medicine | DX: J98.11 Atelectasis (principal); J18.9 Pneumonia, unspecified organism ==

== ENCOUNTER → 2021-05-24 | Outpatient (CLI) | payer SELFPAY ==
[2021-05-24 08:22] LABS: BASO % 0.4 % (0.0-1.0); EOS # 0.1 10*3/uL (0.0-0.4); HEMATOCRIT 35.8 % (42.0-52.0); LYMPH # 1.2 10*3/uL (1.3-4.4); LYMPH % 24.9 % (27.0-41.0); MEAN CELL VOLUME 79.7 fl (80.0-94.0); MEAN CORPUSCULAR HGB 24.3 pg (27.0-31.0); MEAN CORPUSCULAR HGB CONC 30.4 g/dl (33.0-37.0); MONO # 0.7 10*3/uL (0.1-1.0); MONO % 14.1 % (3.0-9.0); NEUT # 2.8 10*3/uL (2.3-7.9); PLATELET COUNT AUTOMATED 339 10*3/uL (130-400); RED BLOOD COUNT 4.49 10*6/uL (4.50-5.90); RED CELL DISTRI WIDTH 18.8 % (0-14.5); WHITE BLOOD COUNT 4.9 10*3/uL (4.8-10.8)
[2021-05-24 08:53] LABS: ALBUMIN 3.1 gm/dl (3.1-4.5); ALKALINE PHOSPHATASE 181 U/L (45-117); BUN 18 mg/dl (7-24); CHLORIDE 108 mmol/L (98-107); CREATININE 1.03 mg/dL (0.70-1.30); GAMMA GLUTAMYL TRANSPEPTIDASE 68 U/L (15-85); POTASSIUM 3.7 mmol/L (3.5-5.1); SGOT/AST 22 IU/L (3-35); SGPT/ALT 36 U/L (12-78); SODIUM 138 mmol/L (136-145)
== END | disposition home or self-care (01) ==
LOC: LAB 07:52
PROVIDERS: ATTEND Nurse Practitioner Acute Care
DX: E61.2 Magnesium deficiency (principal); K76.9 Liver disease, unspecified; R73.02 Impaired glucose tolerance (oral); Z48.23 Encounter for aftercare following liver transplant; Z41.8 Encounter for other procedures for purposes other than remedying health state; Z94.4 Liver transplant status

== ENCOUNTER → 2021-06-25 | Outpatient (CLI) | payer SELFPAY ==
[2021-06-25 07:32] LABS: BASO % 0.3 % (0.0-1.0); EOS # 0.2 10*3/uL (0.0-0.4); EOS % 2.3 % (1.0-4.0); HEMATOCRIT 35.3 % (42.0-52.0); LYMPH # 1.2 10*3/uL (1.3-4.4); LYMPH % 18.3 % (27.0-41.0); MEAN CELL VOLUME 78.8 fl (80.0-94.0); MEAN CORPUSCULAR HGB 23.9 pg (27.0-31.0); MEAN CORPUSCULAR HGB CONC 30.3 g/dl (33.0-37.0); MEAN PLATELET VOLUME 8.8 fl (9.6-12.3); MONO # 0.9 10*3/uL (0.1-1.0); MONO % 14.2 % (3.0-9.0); NEUT # 4.3 10*3/uL (2.3-7.9); NEUT % 64.6 % (47.0-73.0); PLATELET COUNT AUTOMATED 382 10*3/uL (130-400); RED BLOOD COUNT 4.48 10*6/uL (4.50-5.90); RED CELL DISTRI WIDTH 18.2 % (0-14.5); WHITE BLOOD COUNT 6.6 10*3/uL (4.8-10.8)
[2021-06-25 07:49] LABS: ALBUMIN 3.2 gm/dl (3.1-4.5); ALKALINE PHOSPHATASE 153 U/L (45-117); BUN 17 mg/dl (7-24); CHLORIDE 108 mmol/L (98-107); CREATININE 0.89 mg/dL (0.70-1.30); GAMMA GLUTAMYL TRANSPEPTIDASE 45 U/L (15-85); POTASSIUM 3.7 mmol/L (3.5-5.1); SGOT/AST 21 IU/L (3-35); SGPT/ALT 27 U/L (12-78); SODIUM 139 mmol/L (136-145); TOTAL PROTEIN 6.9 gm/dL (6.4-8.2)
== END | disposition home or self-care (01) ==
LOC: LAB 07:12
PROVIDERS: ATTEND Nurse Practitioner Acute Care
DX: K76.9 Liver disease, unspecified (principal); E83.30 Disorder of phosphorus metabolism, unspecified; R73.02 Impaired glucose tolerance (oral); Z48.23 Encounter for aftercare following liver transplant; Z94.4 Liver transplant status; Z41.8 Encounter for other procedures for purposes other than remedying health state

== ENCOUNTER → 2021-07-25 | Outpatient (CLI) | payer SELFPAY ==
[2021-07-25 08:08] LABS: ALBUMIN 3.1 gm/dl (3.1-4.5); ALKALINE PHOSPHATASE 177 U/L (45-117); BUN 23 mg/dl (7-24); CHLORIDE 110 mmol/L (98-107); CHOLESTEROL 223 mg/dL (<200); CREATININE 1.04 mg/dL (0.70-1.30); GAMMA GLUTAMYL TRANSPEPTIDASE 147 U/L (15-85); LDL CHOLESTEROL 138 mg/dL (9-159); POTASSIUM 3.5 mmol/L (3.5-5.1); SGOT/AST 26 IU/L (3-35); SGPT/ALT 40 U/L (12-78); SODIUM 141 mmol/L (136-145); TRIGLYCERIDES 223 mg/dl (<150)
[2021-07-25 08:32] LABS: EOS # 0.1 10*3/uL (0.0-0.4); EOS % 1.3 % (1.0-4.0); HEMATOCRIT 35.6 % (42.0-52.0); LYMPH % 24.5 % (27.0-41.0); MEAN CELL VOLUME 78.8 fl (80.0-94.0); MEAN CORPUSCULAR HGB 23.9 pg (27.0-31.0); MEAN CORPUSCULAR HGB CONC 30.3 g/dl (33.0-37.0); MEAN PLATELET VOLUME 9.3 fl (9.6-12.3); MONO # 0.7 10*3/uL (0.1-1.0); MONO % 16.8 % (3.0-9.0); NEUT # 2.2 10*3/uL (2.3-7.9); NEUT % 57.1 % (47.0-73.0); PLATELET COUNT AUTOMATED 261 10*3/uL (130-400); RED BLOOD COUNT 4.52 10*6/uL (4.50-5.90); RED CELL DISTRI WIDTH 18.5 % (0-14.5); WHITE BLOOD COUNT 3.9 10*3/uL (4.8-10.8)
== END | disposition home or self-care (01) ==
LOC: LAB 00:18
PROVIDERS: ATTEND Nurse Practitioner Acute Care
DX: Z48.23 Encounter for aftercare following liver transplant (principal); K76.9 Liver disease, unspecified; Z41.8 Encounter for other procedures for purposes other than remedying health state; E61.2 Magnesium deficiency; R73.02 Impaired glucose tolerance (oral); Z94.4 Liver transplant status

== ENCOUNTER → 2021-08-24 | Outpatient (CLI) | payer SELFPAY ==
[2021-08-24 07:45] LABS: BASO % 0.5 % (0.0-1.0); EOS # 0.2 10*3/uL (0.0-0.4); EOS % 2.6 % (1.0-4.0); HEMATOCRIT 34.6 % (42.0-52.0); LYMPH # 1.1 10*3/uL (1.3-4.4); MEAN CELL VOLUME 79.7 fl (80.0-94.0); MEAN CORPUSCULAR HGB CONC 30.1 g/dl (33.0-37.0); MEAN PLATELET VOLUME 9.4 fl (9.6-12.3); MONO # 0.9 10*3/uL (0.1-1.0); MONO % 14.9 % (3.0-9.0); NEUT % 63.7 % (47.0-73.0); PLATELET COUNT AUTOMATED 366 10*3/uL (130-400); RED BLOOD COUNT 4.34 10*6/uL (4.50-5.90); RED CELL DISTRI WIDTH 18.2 % (0-14.5); WHITE BLOOD COUNT 6.2 10*3/uL (4.8-10.8)
[2021-08-24 08:08] LABS: ALBUMIN 3.3 gm/dl (3.1-4.5); ALKALINE PHOSPHATASE 149 U/L (45-117); BUN 19 mg/dl (7-24); CHLORIDE 109 mmol/L (98-107); CREATININE 0.99 mg/dL (0.70-1.30); GAMMA GLUTAMYL TRANSPEPTIDASE 48 U/L (15-85); POTASSIUM 4.1 mmol/L (3.5-5.1); SGOT/AST 24 IU/L (3-35); SGPT/ALT 29 U/L (12-78); SODIUM 139 mmol/L (136-145)
== END | disposition home or self-care (01) ==
LOC: LAB 06:52
PROVIDERS: ATTEND Nurse Practitioner Acute Care
DX: Z48.23 Encounter for aftercare following liver transplant (principal); Z01.818 Encounter for other preprocedural examination; E61.2 Magnesium deficiency; E83.30 Disorder of phosphorus metabolism, unspecified; R73.03 Prediabetes; K76.9 Liver disease, unspecified; Z41.8 Encounter for other procedures for purposes other than remedying health state; R73.02 Impaired glucose tolerance (oral); Z94.4 Liver transplant status

== ENCOUNTER → 2021-09-26 | Outpatient (CLI) | payer OTHER ==
[2021-09-26 07:33] LABS: BASO % 0.3 % (0.0-1.0); EOS # 0.2 10*3/uL (0.0-0.4); EOS % 3.1 % (1.0-4.0); HEMATOCRIT 36.1 % (42.0-52.0); LYMPH # 1.4 10*3/uL (1.3-4.4); LYMPH % 23.4 % (27.0-41.0); MEAN CELL VOLUME 79.5 fl (80.0-94.0); MEAN CORPUSCULAR HGB 24.2 pg (27.0-31.0); MEAN CORPUSCULAR HGB CONC 30.5 g/dl (33.0-37.0); MONO # 0.9 10*3/uL (0.1-1.0); MONO % 15.6 % (3.0-9.0); NEUT # 3.3 10*3/uL (2.3-7.9); NEUT % 57.3 % (47.0-73.0); PLATELET COUNT AUTOMATED 351 10*3/uL (130-400); RED BLOOD COUNT 4.54 10*6/uL (4.50-5.90); RED CELL DISTRI WIDTH 18.6 % (0-14.5); WHITE BLOOD COUNT 5.8 10*3/uL (4.8-10.8)
[2021-09-26 07:48] LABS: ALKALINE PHOSPHATASE 158 U/L (45-117); BUN 20 mg/dl (7-24); CHLORIDE 111 mmol/L (98-107); CREATININE 1.02 mg/dL (0.70-1.30); GAMMA GLUTAMYL TRANSPEPTIDASE 68 U/L (15-85); POTASSIUM 3.8 mmol/L (3.5-5.1); SGOT/AST 24 IU/L (3-35); SGPT/ALT 39 U/L (12-78); SODIUM 142 mmol/L (136-145); TOTAL PROTEIN 6.7 gm/dL (6.4-8.2)
== END | disposition home or self-care (01) ==
LOC: LAB 09-25 07:44
PROVIDERS: ATTEND Nurse Practitioner Acute Care
DX: Z48.23 Encounter for aftercare following liver transplant (principal); Z41.8 Encounter for other procedures for purposes other than remedying health state; K76.9 Liver disease, unspecified; E61.2 Magnesium deficiency; R73.02 Impaired glucose tolerance (oral); Z94.4 Liver transplant status

== ENCOUNTER 2021-10-18 20:59 | Emergency (ER) | payer OTHER ==
[~2021-10-18] VITALS: Ht 172.7 cm; Wt 73.9 kg
[2021-10-18 22:40] LABS: BASO % 0.1 % (0.0-1.0); EOS # 0.1 10*3/uL (0.0-0.4); EOS % 1.2 % (1.0-4.0); HEMATOCRIT 36.6 % (42.0-52.0); LYMPH # 0.7 10*3/uL (1.3-4.4); LYMPH % 10.8 % (27.0-41.0); MEAN CORPUSCULAR HGB 24.4 pg (27.0-31.0); MEAN CORPUSCULAR HGB CONC 30.9 g/dl (33.0-37.0); MEAN PLATELET VOLUME 8.6 fl (9.6-12.3); MONO # 0.6 10*3/uL (0.1-1.0); MONO % 9.4 % (3.0-9.0); NEUT # 5.3 10*3/uL (2.3-7.9); NEUT % 78.2 % (47.0-73.0); PLATELET COUNT AUTOMATED 383 10*3/uL (130-400); RED BLOOD COUNT 4.63 10*6/uL (4.50-5.90); RED CELL DISTRI WIDTH 18.9 % (0-14.5); WHITE BLOOD COUNT 6.8 10*3/uL (4.8-10.8)
[2021-10-18 22:51] LABS: ACT PARTIAL THROMBO TIME 27.6 SECONDS (20.0-32.1)
[2021-10-18 22:54] LABS: ALBUMIN 3.2 gm/dl (3.1-4.5); ALKALINE PHOSPHATASE 183 U/L (45-117); BUN 24 mg/dl (7-24); CHLORIDE 109 mmol/L (98-107); CREATININE 1.04 mg/dL (0.70-1.30); POTASSIUM 3.9 mmol/L (3.5-5.1); SGOT/AST 20 IU/L (3-35); SGPT/ALT 57 U/L (12-78); SODIUM 141 mmol/L (136-145); TOTAL PROTEIN 7.1 gm/dL (6.4-8.2)
[2021-10-19 00:54] VITALS: BP 159/92
== END 2021-10-19 02:00 | disposition home or self-care (01) ==
LOC: ED 20:59
PROVIDERS: Emergency Medicine
DX: R07.89 Other chest pain (principal)

== ENCOUNTER → 2021-10-24 | Outpatient (CLI) | payer OTHER ==
[2021-10-24 08:12] LABS: BASO % 0.3 % (0.0-1.0); EOS # 0.1 10*3/uL (0.0-0.4); EOS % 1.8 % (1.0-4.0); HEMATOCRIT 39.3 % (42.0-52.0); LYMPH # 1.4 10*3/uL (1.3-4.4); LYMPH % 21.6 % (27.0-41.0); MEAN CELL VOLUME 80.9 fl (80.0-94.0); MEAN CORPUSCULAR HGB 24.7 pg (27.0-31.0); MEAN CORPUSCULAR HGB CONC 30.5 g/dl (33.0-37.0); MEAN PLATELET VOLUME 9.1 fl (9.6-12.3); MONO % 14.6 % (3.0-9.0); NEUT % 61.2 % (47.0-73.0); PLATELET COUNT AUTOMATED 335 10*3/uL (130-400); RED BLOOD COUNT 4.86 10*6/uL (4.50-5.90); RED CELL DISTRI WIDTH 19.1 % (0-14.5); WHITE BLOOD COUNT 6.5 10*3/uL (4.8-10.8)
[2021-10-24 08:49] LABS: ALBUMIN 3.2 gm/dl (3.1-4.5); BUN 20 mg/dl (7-24); CHLORIDE 110 mmol/L (98-107); CHOLESTEROL 215 mg/dL (<200); CREATININE 1.13 mg/dL (0.70-1.30); GAMMA GLUTAMYL TRANSPEPTIDASE 120 U/L (15-85); POTASSIUM 3.5 mmol/L (3.5-5.1); SGOT/AST 21 IU/L (3-35); SGPT/ALT 40 U/L (12-78); SODIUM 141 mmol/L (136-145); TRIGLYCERIDES 203 mg/dl (<150)
[2021-10-24 08:51] LABS: ALKALINE PHOSPHATASE 170 U/L (45-117); LDL CHOLESTEROL 128 mg/dL (9-159)
== END | disposition home or self-care (01) ==
LOC: LAB 07:51
PROVIDERS: ATTEND Nurse Practitioner Acute Care
DX: Z48.23 Encounter for aftercare following liver transplant (principal); K76.9 Liver disease, unspecified; Z41.8 Encounter for other procedures for purposes other than remedying health state; E83.30 Disorder of phosphorus metabolism, unspecified; R73.02 Impaired glucose tolerance (oral); Z94.4 Liver transplant status

== ENCOUNTER → 2021-11-05 | Outpatient (CLI) | payer OTHER ==
[2021-11-06 04:06] LABS: AFP TUMOR MARKER 2.3 ng/mL (0.0-8.3)
== END | disposition home or self-care (01) ==
LOC: LAB 07:17
PROVIDERS: ATTEND Nurse Practitioner Acute Care
DX: C22.0 Liver cell carcinoma (principal); E55.9 Vitamin D deficiency, unspecified; Z94.4 Liver transplant status

== ENCOUNTER → 2021-11-21 | Outpatient (CLI) | payer OTHER | END | disposition home or self-care (01) | LOC: CT 07:34 | PROVIDERS: ATTEND Nurse Practitioner Acute Care | DX: J98.11 Atelectasis (principal); M47.815 Spondylosis without myelopathy or radiculopathy, thoracolumbar region; Z94.4 Liver transplant status ==

== ENCOUNTER → 2021-11-27 | Outpatient (CLI) | payer OTHER ==
[2021-11-27 08:34] LABS: BASO % 0.3 % (0.0-1.0); EOS # 0.1 10*3/uL (0.0-0.4); EOS % 2.2 % (1.0-4.0); HEMATOCRIT 38.7 % (42.0-52.0); LYMPH # 1.2 10*3/uL (1.3-4.4); LYMPH % 19.4 % (27.0-41.0); MEAN CORPUSCULAR HGB 25.1 pg (27.0-31.0); MEAN PLATELET VOLUME 8.7 fl (9.6-12.3); MONO # 0.9 10*3/uL (0.1-1.0); MONO % 14.4 % (3.0-9.0); NEUT # 3.9 10*3/uL (2.3-7.9); NEUT % 62.7 % (47.0-73.0); PLATELET COUNT AUTOMATED 358 10*3/uL (130-400); RED BLOOD COUNT 4.78 10*6/uL (4.50-5.90); RED CELL DISTRI WIDTH 20.2 % (0-14.5); WHITE BLOOD COUNT 6.2 10*3/uL (4.8-10.8)
[2021-11-27 08:53] LABS: ALBUMIN 3.5 gm/dl (3.1-4.5); ALKALINE PHOSPHATASE 155 U/L (45-117); BUN 17 mg/dl (7-24); CHLORIDE 108 mmol/L (98-107); CHOLESTEROL 209 mg/dL (<200); CREATININE 1.15 mg/dL (0.70-1.30); GAMMA GLUTAMYL TRANSPEPTIDASE 148 U/L (15-85); LDL CHOLESTEROL 101 mg/dL (9-159); POTASSIUM 4.4 mmol/L (3.5-5.1); SGOT/AST 31 IU/L (3-35); SGPT/ALT 56 U/L (12-78); SODIUM 138 mmol/L (136-145); TRIGLYCERIDES 343 mg/dl (<150)
== END | disposition home or self-care (01) ==
LOC: LAB 07:48
PROVIDERS: ATTEND Nurse Practitioner Acute Care
DX: E83.30 Disorder of phosphorus metabolism, unspecified (principal); E61.2 Magnesium deficiency; Z01.812 Encounter for preprocedural laboratory examination; Z48.23 Encounter for aftercare following liver transplant; Z94.4 Liver transplant status; R73.02 Impaired glucose tolerance (oral); Z41.8 Encounter for other procedures for purposes other than remedying health state

== ENCOUNTER → 2021-12-24 | Outpatient (CLI) | payer OTHER ==
[2021-12-24 07:37] LABS: BASO % 0.1 % (0.0-1.0); EOS # 0.2 10*3/uL (0.0-0.4); EOS % 2.5 % (1.0-4.0); HEMATOCRIT 36.3 % (42.0-52.0); LYMPH % 14.9 % (27.0-41.0); MEAN CORPUSCULAR HGB 25.8 pg (27.0-31.0); MEAN CORPUSCULAR HGB CONC 32.2 g/dl (33.0-37.0); MEAN PLATELET VOLUME 8.7 fl (9.6-12.3); MONO # 1.1 10*3/uL (0.1-1.0); MONO % 15.8 % (3.0-9.0); NEUT # 4.6 10*3/uL (2.3-7.9); NEUT % 66.3 % (47.0-73.0); PLATELET COUNT AUTOMATED 371 10*3/uL (130-400); RED BLOOD COUNT 4.54 10*6/uL (4.50-5.90); RED CELL DISTRI WIDTH 19.2 % (0-14.5); WHITE BLOOD COUNT 6.9 10*3/uL (4.8-10.8)
[2021-12-24 08:05] LABS: ALKALINE PHOSPHATASE 128 U/L (45-117); BUN 16 mg/dl (7-24); CHLORIDE 109 mmol/L (98-107); CHOLESTEROL 204 mg/dL (<200); GAMMA GLUTAMYL TRANSPEPTIDASE 75 U/L (15-85); LDL CHOLESTEROL 140 mg/dL (9-159); POTASSIUM 3.5 mmol/L (3.5-5.1); SGOT/AST 19 IU/L (3-35); SGPT/ALT 34 U/L (12-78); SODIUM 141 mmol/L (136-145); TOTAL PROTEIN 6.8 gm/dL (6.4-8.2); TRIGLYCERIDES 134 mg/dl (<150)
== END | disposition home or self-care (01) ==
LOC: LAB 07:09
PROVIDERS: ATTEND Nurse Practitioner Acute Care
DX: K76.9 Liver disease, unspecified (principal); E61.2 Magnesium deficiency; R73.02 Impaired glucose tolerance (oral); Z48.23 Encounter for aftercare following liver transplant; Z94.4 Liver transplant status; Z41.8 Encounter for other procedures for purposes other than remedying health state

== ENCOUNTER → 2022-01-22 | Outpatient (CLI) | payer OTHER ==
[2022-01-22 07:41] LABS: BASO % 0.4 % (0.0-1.0); EOS # 0.2 10*3/uL (0.0-0.4); EOS % 2.3 % (1.0-4.0); HEMATOCRIT 38.1 % (42.0-52.0); LYMPH # 1.4 10*3/uL (1.3-4.4); LYMPH % 18.4 % (27.0-41.0); MEAN CELL VOLUME 81.6 fl (80.0-94.0); MEAN CORPUSCULAR HGB 25.9 pg (27.0-31.0); MEAN CORPUSCULAR HGB CONC 31.8 g/dl (33.0-37.0); MEAN PLATELET VOLUME 8.6 fl (9.6-12.3); MONO # 1.2 10*3/uL (0.1-1.0); MONO % 15.2 % (3.0-9.0); NEUT # 4.9 10*3/uL (2.3-7.9); NEUT % 63.3 % (47.0-73.0); PLATELET COUNT AUTOMATED 389 10*3/uL (130-400); RED BLOOD COUNT 4.67 10*6/uL (4.50-5.90); RED CELL DISTRI WIDTH 17.5 % (0-14.5); WHITE BLOOD COUNT 7.8 10*3/uL (4.8-10.8)
[2022-01-22 08:04] LABS: ALKALINE PHOSPHATASE 153 U/L (45-117); BUN 20 mg/dl (7-24); CHLORIDE 107 mmol/L (98-107); CREATININE 1.16 mg/dL (0.70-1.30); GAMMA GLUTAMYL TRANSPEPTIDASE 42 U/L (15-85); POTASSIUM 3.8 mmol/L (3.5-5.1); SGOT/AST 18 IU/L (3-35); SGPT/ALT 30 U/L (12-78); SODIUM 141 mmol/L (136-145); TOTAL PROTEIN 7.1 gm/dL (6.4-8.2)
== END | disposition home or self-care (01) ==
LOC: LAB 07:24
PROVIDERS: ATTEND Nurse Practitioner Acute Care
DX: C24.0 Malignant neoplasm of extrahepatic bile duct (principal); E83.30 Disorder of phosphorus metabolism, unspecified; Z01.812 Encounter for preprocedural laboratory examination; Z94.4 Liver transplant status; Z41.9 Encounter for procedure for purposes other than remedying health state, unspecified; Z41.8 Encounter for other procedures for purposes other than remedying health state; R73.02 Impaired glucose tolerance (oral); Z48.23 Encounter for aftercare following liver transplant; K76.9 Liver disease, unspecified

== ENCOUNTER → 2022-02-22 | Outpatient (CLI) | payer OTHER ==
[2022-02-22 07:35] LABS: BASO % 0.5 % (0.0-1.0); EOS # 0.2 10*3/uL (0.0-0.4); EOS % 2.7 % (1.0-4.0); HEMATOCRIT 36.7 % (42.0-52.0); LYMPH # 1.2 10*3/uL (1.3-4.4); LYMPH % 17.4 % (27.0-41.0); MEAN CORPUSCULAR HGB CONC 31.3 g/dl (33.0-37.0); MEAN PLATELET VOLUME 9.4 fl (9.6-12.3); MONO % 14.7 % (3.0-9.0); NEUT # 4.3 10*3/uL (2.3-7.9); NEUT % 64.2 % (47.0-73.0); PLATELET COUNT AUTOMATED 354 10*3/uL (130-400); RED BLOOD COUNT 4.42 10*6/uL (4.50-5.90); WHITE BLOOD COUNT 6.7 10*3/uL (4.8-10.8)
[2022-02-22 08:01] LABS: BUN 18 mg/dl (7-24); CHLORIDE 107 mmol/L (98-107); CREATININE 1.01 mg/dL (0.70-1.30); GAMMA GLUTAMYL TRANSPEPTIDASE 54 U/L (15-85); POTASSIUM 3.5 mmol/L (3.5-5.1); SGOT/AST 21 IU/L (3-35); SGPT/ALT 28 U/L (12-78); SODIUM 140 mmol/L (136-145); TOTAL PROTEIN 6.8 gm/dL (6.4-8.2)
[2022-02-22 08:03] LABS: ALKALINE PHOSPHATASE 157 U/L (45-117)
== END | disposition home or self-care (01) ==
LOC: LAB 07:03
PROVIDERS: ATTEND Nurse Practitioner Acute Care
DX: Z01.812 Encounter for preprocedural laboratory examination (principal); R73.02 Impaired glucose tolerance (oral); E61.2 Magnesium deficiency; K76.9 Liver disease, unspecified; Z48.23 Encounter for aftercare following liver transplant; Z94.4 Liver transplant status; Z41.8 Encounter for other procedures for purposes other than remedying health state

== ENCOUNTER → 2022-04-02 | Outpatient (CLI) | payer OTHER ==
[2022-04-02 09:17] LABS: BASO % 0.3 % (0.0-1.0); EOS # 0.1 10*3/uL (0.0-0.4); EOS % 1.7 % (1.0-4.0); HEMATOCRIT 37.2 % (42.0-52.0); LYMPH # 1.2 10*3/uL (1.3-4.4); LYMPH % 16.6 % (27.0-41.0); MEAN CELL VOLUME 82.7 fl (80.0-94.0); MEAN CORPUSCULAR HGB 25.8 pg (27.0-31.0); MEAN CORPUSCULAR HGB CONC 31.2 g/dl (33.0-37.0); MEAN PLATELET VOLUME 9.5 fl (9.6-12.3); MONO # 1.1 10*3/uL (0.1-1.0); MONO % 16.3 % (3.0-9.0); NEUT # 4.5 10*3/uL (2.3-7.9); NEUT % 64.2 % (47.0-73.0); PLATELET COUNT AUTOMATED 347 10*3/uL (130-400); RED CELL DISTRI WIDTH 16.7 % (0-14.5); WHITE BLOOD COUNT 6.9 10*3/uL (4.8-10.8)
[2022-04-02 10:03] LABS: CHLORIDE 105 mmol/L (98-107); POTASSIUM 3.6 mmol/L (3.5-5.1); SODIUM 139 mmol/L (136-145)
[2022-04-02 10:11] LABS: ALKALINE PHOSPHATASE 164 U/L (45-117); BUN 18 mg/dl (7-24); CHOLESTEROL 182 mg/dL (<200); CREATININE 1.13 mg/dL (0.70-1.30); GAMMA GLUTAMYL TRANSPEPTIDASE 39 U/L (15-85); LDL CHOLESTEROL 112 mg/dL (9-159); SGOT/AST 22 IU/L (3-35); SGPT/ALT 23 U/L (12-78); TOTAL PROTEIN 6.9 gm/dL (6.4-8.2); TRIGLYCERIDES 159 mg/dl (<150)
== END | disposition home or self-care (01) ==
LOC: LAB 07:53
PROVIDERS: ATTEND Nurse Practitioner Acute Care
DX: E83.30 Disorder of phosphorus metabolism, unspecified (principal); K76.9 Liver disease, unspecified; Z94.4 Liver transplant status; Z48.23 Encounter for aftercare following liver transplant; R73.02 Impaired glucose tolerance (oral); Z01.812 Encounter for preprocedural laboratory examination; Z01.818 Encounter for other preprocedural examination

== ENCOUNTER → 2022-04-30 | Outpatient (CLI) | payer OTHER ==
[2022-04-30 07:35] LABS: BASO % 0.3 % (0.0-1.0); EOS # 0.2 10*3/uL (0.0-0.4); EOS % 2.1 % (1.0-4.0); HEMATOCRIT 38.5 % (42.0-52.0); LYMPH # 1.4 10*3/uL (1.3-4.4); LYMPH % 19.8 % (27.0-41.0); MEAN CELL VOLUME 81.1 fl (80.0-94.0); MEAN CORPUSCULAR HGB 25.7 pg (27.0-31.0); MEAN CORPUSCULAR HGB CONC 31.7 g/dl (33.0-37.0); MEAN PLATELET VOLUME 8.7 fl (9.6-12.3); MONO % 14.1 % (3.0-9.0); NEUT # 4.6 10*3/uL (2.3-7.9); NEUT % 63.4 % (47.0-73.0); PLATELET COUNT AUTOMATED 325 10*3/uL (130-400); RED BLOOD COUNT 4.75 10*6/uL (4.50-5.90); RED CELL DISTRI WIDTH 17.1 % (0-14.5); WHITE BLOOD COUNT 7.3 10*3/uL (4.8-10.8)
[2022-04-30 07:51] LABS: ALKALINE PHOSPHATASE 172 U/L (45-117); BUN 18 mg/dl (7-24); CHLORIDE 109 mmol/L (98-107); CREATININE 1.06 mg/dL (0.70-1.30); GAMMA GLUTAMYL TRANSPEPTIDASE 72 U/L (15-85); POTASSIUM 3.5 mmol/L (3.5-5.1); SGOT/AST 23 IU/L (3-35); SGPT/ALT 28 U/L (12-78); SODIUM 140 mmol/L (136-145); TOTAL PROTEIN 7.1 gm/dL (6.4-8.2)
== END | disposition home or self-care (01) ==
LOC: LAB 03:16
PROVIDERS: ATTEND Nurse Practitioner Acute Care
DX: Z48.23 Encounter for aftercare following liver transplant (principal); Z41.8 Encounter for other procedures for purposes other than remedying health state; K76.9 Liver disease, unspecified; E83.30 Disorder of phosphorus metabolism, unspecified; R73.02 Impaired glucose tolerance (oral); Z94.4 Liver transplant status

== ENCOUNTER → 2022-05-23 | Outpatient (CLI) | payer OTHER ==
[2022-05-23 07:37] LABS: BASO % 0.3 % (0.0-1.0); EOS # 0.2 10*3/uL (0.0-0.4); EOS % 2.4 % (1.0-4.0); HEMATOCRIT 40.3 % (42.0-52.0); LYMPH # 1.3 10*3/uL (1.3-4.4); LYMPH % 16.6 % (27.0-41.0); MEAN CELL VOLUME 81.3 fl (80.0-94.0); MEAN CORPUSCULAR HGB 25.6 pg (27.0-31.0); MEAN CORPUSCULAR HGB CONC 31.5 g/dl (33.0-37.0); MEAN PLATELET VOLUME 9.1 fl (9.6-12.3); MONO % 13.3 % (3.0-9.0); NEUT # 5.1 10*3/uL (2.3-7.9); PLATELET COUNT AUTOMATED 350 10*3/uL (130-400); RED BLOOD COUNT 4.96 10*6/uL (4.50-5.90); RED CELL DISTRI WIDTH 18.1 % (0-14.5); WHITE BLOOD COUNT 7.6 10*3/uL (4.8-10.8)
[2022-05-23 07:55] LABS: ALKALINE PHOSPHATASE 193 U/L (45-117); BUN 14 mg/dl (7-24); CHLORIDE 106 mmol/L (98-107); CHOLESTEROL 230 mg/dL (<200); GAMMA GLUTAMYL TRANSPEPTIDASE 68 U/L (15-85); LDL CHOLESTEROL 152 mg/dL (9-159); POTASSIUM 3.3 mmol/L (3.5-5.1); SGOT/AST 29 IU/L (3-35); SGPT/ALT 36 U/L (12-78); SODIUM 139 mmol/L (136-145); TOTAL PROTEIN 7.4 gm/dL (6.4-8.2); TRIGLYCERIDES 152 mg/dl (<150)
[2022-05-23 08:52] LABS: FERRITIN 13.7 ng/mL (22.0-322.0); VITAMIN D, 25-HYDROXY 77.9 ng/mL (30-100)
== END | disposition home or self-care (01) ==
LOC: LAB 07:06
PROVIDERS: Nurse Practitioner Primary Care; ATTEND Nurse Practitioner Acute Care
DX: I10 Essential (primary) hypertension (principal); G25.81 Restless legs syndrome; Z12.5 Encounter for screening for malignant neoplasm of prostate; E55.9 Vitamin D deficiency, unspecified; K76.9 Liver disease, unspecified; Z48.23 Encounter for aftercare following liver transplant; Z94.4 Liver transplant status; Z41.8 Encounter for other procedures for purposes other than remedying health state; E83.30 Disorder of phosphorus metabolism, unspecified; R73.02 Impaired glucose tolerance (oral)

== ENCOUNTER → 2022-06-24 | Outpatient (CLI) | payer OTHER ==
[2022-06-24 08:25] LABS: BASO % 0.3 % (0.0-1.0); EOS # 0.1 10*3/uL (0.0-0.4); EOS % 2.2 % (1.0-4.0); HEMATOCRIT 42.3 % (42.0-52.0); LYMPH # 1.2 10*3/uL (1.3-4.4); LYMPH % 19.1 % (27.0-41.0); MEAN CELL VOLUME 85.5 fl (80.0-94.0); MEAN CORPUSCULAR HGB 27.1 pg (27.0-31.0); MEAN CORPUSCULAR HGB CONC 31.7 g/dl (33.0-37.0); MEAN PLATELET VOLUME 9.2 fl (9.6-12.3); MONO % 15.8 % (3.0-9.0); NEUT % 62.1 % (47.0-73.0); PLATELET COUNT AUTOMATED 306 10*3/uL (130-400); RED BLOOD COUNT 4.95 10*6/uL (4.50-5.90); RED CELL DISTRI WIDTH 20.3 % (0-14.5); WHITE BLOOD COUNT 6.5 10*3/uL (4.8-10.8)
[2022-06-24 08:43] LABS: BUN 22 mg/dl (7-24); CHLORIDE 109 mmol/L (98-107); CREATININE 1.15 mg/dL (0.70-1.30); GAMMA GLUTAMYL TRANSPEPTIDASE 126 U/L (15-85); POTASSIUM 3.9 mmol/L (3.5-5.1); SGOT/AST 26 IU/L (3-35); SGPT/ALT 38 U/L (12-78); SODIUM 143 mmol/L (136-145)
[2022-06-24 08:46] LABS: ALKALINE PHOSPHATASE 178 U/L (45-117); TOTAL PROTEIN 7.1 gm/dL (6.4-8.2)
== END ==
LOC: LAB 07:59
PROVIDERS: ATTEND Nurse Practitioner Acute Care
DX: K76.9 Liver disease, unspecified (principal); E61.2 Magnesium deficiency; R73.02 Impaired glucose tolerance (oral); E83.30 Disorder of phosphorus metabolism, unspecified; Z01.812 Encounter for preprocedural laboratory examination; Z48.23 Encounter for aftercare following liver transplant; Z94.4 Liver transplant status; Z41.8 Encounter for other procedures for purposes other than remedying health state

== ENCOUNTER → 2022-07-29 | Outpatient (CLI) | payer OTHER ==
[2022-07-29 08:27] LABS: BASO % 0.6 % (0.0-1.0); EOS # 0.1 10*3/uL (0.0-0.4); EOS % 1.6 % (1.0-4.0); LYMPH # 1.4 10*3/uL (1.3-4.4); LYMPH % 20.2 % (27.0-41.0); MEAN CELL VOLUME 85.8 fl (80.0-94.0); MEAN CORPUSCULAR HGB 27.9 pg (27.0-31.0); MEAN CORPUSCULAR HGB CONC 32.6 g/dl (33.0-37.0); MEAN PLATELET VOLUME 8.7 fl (9.6-12.3); MONO % 14.8 % (3.0-9.0); NEUT # 4.3 10*3/uL (2.3-7.9); NEUT % 62.1 % (47.0-73.0); PLATELET COUNT AUTOMATED 303 10*3/uL (130-400); RED BLOOD COUNT 5.48 10*6/uL (4.50-5.90); RED CELL DISTRI WIDTH 18.3 % (0-14.5); WHITE BLOOD COUNT 6.9 10*3/uL (4.8-10.8)
[2022-07-29 08:44] LABS: ALKALINE PHOSPHATASE 154 U/L (45-117); BUN 18 mg/dl (7-24); CHLORIDE 108 mmol/L (98-107); CREATININE 1.08 mg/dL (0.70-1.30); GAMMA GLUTAMYL TRANSPEPTIDASE 90 U/L (15-85); IRON 80 ug/dL (65-175); SGOT/AST 21 IU/L (3-35); SGPT/ALT 33 U/L (12-78); SODIUM 140 mmol/L (136-145); TOTAL PROTEIN 7.4 gm/dL (6.4-8.2)
== END | disposition home or self-care (01) ==
LOC: LAB 07:52
PROVIDERS: ATTEND Nurse Practitioner Acute Care
DX: E83.30 Disorder of phosphorus metabolism, unspecified (principal); K76.9 Liver disease, unspecified; Z48.23 Encounter for aftercare following liver transplant; R73.02 Impaired glucose tolerance (oral); Z94.4 Liver transplant status; Z41.8 Encounter for other procedures for purposes other than remedying health state; Z01.818 Encounter for other preprocedural examination

== ENCOUNTER → 2022-08-12 | Day surgery (SDC) | payer OTHER ==
[~2022-08-12] VITALS: Ht 172.7 cm; Wt 72.6 kg
[~2022-08-12] MED LIST changes: +RAPAMUNE1 MG PO
[2022-08-12 08:15] VITALS: BP 159/91
[2022-08-12 10:10] VITALS: BP 153/87
[2022-08-12 10:25] VITALS: BP 153/82
[2022-08-12 10:37] VITALS: BP 160/90
== END | disposition home or self-care (01) ==
LOC: SDC 08-08 12:30
PROVIDERS: ATTEND Surgery
DX: Z12.11 Encounter for screening for malignant neoplasm of colon (principal); D12.8 Benign neoplasm of rectum; K29.50 Unspecified chronic gastritis without bleeding; I10 Essential (primary) hypertension; K21.9 Gastro-esophageal reflux disease without esophagitis; Z79.82 Long term (current) use of aspirin; Z79.899 Other long term (current) drug therapy

== ENCOUNTER → 2022-09-23 | Outpatient (CLI) | payer OTHER ==
[2022-09-23 12:12] LABS: BASO % 0.3 % (0.0-1.0); EOS # 0.2 10*3/uL (0.0-0.4); EOS % 2.6 % (1.0-4.0); HEMATOCRIT 48.9 % (42.0-52.0); LYMPH # 1.2 10*3/uL (1.3-4.4); LYMPH % 18.1 % (27.0-41.0); MEAN CORPUSCULAR HGB 30.6 pg (27.0-31.0); MEAN CORPUSCULAR HGB CONC 32.9 g/dl (33.0-37.0); MEAN PLATELET VOLUME 9.4 fl (9.6-12.3); MONO # 0.9 10*3/uL (0.1-1.0); MONO % 14.1 % (3.0-9.0); NEUT # 4.2 10*3/uL (2.3-7.9); NEUT % 64.4 % (47.0-73.0); PLATELET COUNT AUTOMATED 307 10*3/uL (130-400); RED BLOOD COUNT 5.26 10*6/uL (4.50-5.90); RED CELL DISTRI WIDTH 16.3 % (0-14.5); WHITE BLOOD COUNT 6.6 10*3/uL (4.8-10.8)
[2022-09-23 12:30] LABS: BUN 17 mg/dl (7-24); CHLORIDE 108 mmol/L (98-107); CHOLESTEROL 246 mg/dL (<200); CREATININE 0.97 mg/dL (0.70-1.30); GAMMA GLUTAMYL TRANSPEPTIDASE 78 U/L (15-85); POTASSIUM 3.5 mmol/L (3.5-5.1); SGPT/ALT 37 U/L (12-78); SODIUM 142 mmol/L (136-145); TOTAL PROTEIN 7.3 gm/dL (6.4-8.2); TRIGLYCERIDES 158 mg/dl (<150)
[2022-09-23 12:31] LABS: ALKALINE PHOSPHATASE 149 U/L (45-117); LDL CHOLESTEROL 168 mg/dL (9-159)
== END | disposition home or self-care (01) ==
LOC: LAB 08:15
PROVIDERS: ATTEND Nurse Practitioner Acute Care
DX: K76.9 Liver disease, unspecified (principal); E83.30 Disorder of phosphorus metabolism, unspecified; R73.02 Impaired glucose tolerance (oral); Z01.812 Encounter for preprocedural laboratory examination; Z48.23 Encounter for aftercare following liver transplant; Z41.8 Encounter for other procedures for purposes other than remedying health state; Z94.4 Liver transplant status

== ENCOUNTER 2022-10-27 16:03 | Emergency (ER) | payer OTHER ==
[~2022-10-27] VITALS: Wt 70.8 kg
[2022-10-27 16:18] VITALS: BP 169/74
[2022-10-27] MEDS ORDERED: OXYCODONE HCL5 MG PO (19:09)
== END 2022-10-27 19:20 | disposition home or self-care (01) ==
LOC: ED 16:03
DX: R23.8 Other skin changes (principal); Z79.899 Other long term (current) drug therapy

== ENCOUNTER → 2023-01-13 | Day surgery (SDC) | payer OTHER ==
[~2023-01-13] VITALS: Ht 172.7 cm; Wt 77.1 kg
[~2023-01-13] MED LIST changes: +OXYCODONE HCL5 MG PO
[2023-01-13 07:23] VITALS: BP 160/95
[2023-01-13 08:45] VITALS: BP 135/81
[2023-01-13 09:00] VITALS: BP 127/81
[2023-01-13 09:15] VITALS: BP 131/86
== END | disposition home or self-care (01) ==
LOC: SDC 01-09 10:15
PROVIDERS: ATTEND Surgery
DX: Z09 Encounter for follow-up examination after completed treatment for conditions other than malignant neoplasm (principal); D12.5 Benign neoplasm of sigmoid colon; Z86.010 Personal history of colon polyps; K21.9 Gastro-esophageal reflux disease without esophagitis; Z98.890 Other specified postprocedural states

== ENCOUNTER → 2023-02-26 | Outpatient (CLI) | payer OTHER ==
[2023-02-26 08:51] LABS: BASO % 0.6 % (0.0-1.0); EOS # 0.3 10*3/uL (0.0-0.4); LYMPH # 1.1 10*3/uL (1.3-4.4); LYMPH % 16.5 % (27.0-41.0); MEAN CELL VOLUME 87.8 fl (80.0-94.0); MEAN CORPUSCULAR HGB 30.8 pg (27.0-31.0); MEAN CORPUSCULAR HGB CONC 35.1 g/dl (33.0-37.0); MEAN PLATELET VOLUME 9.2 fl (9.6-12.3); MONO # 1.2 10*3/uL (0.1-1.0); NEUT # 4.2 10*3/uL (2.3-7.9); NEUT % 61.3 % (47.0-73.0); PLATELET COUNT AUTOMATED 355 10*3/uL (130-400); RED CELL DISTRI WIDTH 13.2 % (0-14.5); WHITE BLOOD COUNT 6.8 10*3/uL (4.8-10.8)
[2023-02-26 09:06] LABS: ALKALINE PHOSPHATASE 139 U/L (46-116); BUN 17 mg/dl (9-23); CHLORIDE 102 mmol/L (98-107); CHOLESTEROL 238 mg/dL (<200); GAMMA GLUTAMYL TRANSPEPTIDASE 49 U/L (0-73); LDL CHOLESTEROL 160 mg/dL (9-159); POTASSIUM 3.3 mmol/L (3.4-5.1); SGPT/ALT 19 U/L (10-49); TOTAL PROTEIN 6.9 gm/dL (6.0-8.0); TRIGLYCERIDES 177 mg/dl (<150)
== END | disposition home or self-care (01) ==
LOC: LAB 08:02
PROVIDERS: ATTEND Nurse Practitioner Acute Care
DX: Z01.812 Encounter for preprocedural laboratory examination (principal); Z41.8 Encounter for other procedures for purposes other than remedying health state; K76.9 Liver disease, unspecified; E83.30 Disorder of phosphorus metabolism, unspecified; Z48.23 Encounter for aftercare following liver transplant; Z94.4 Liver transplant status; R73.02 Impaired glucose tolerance (oral)

== ENCOUNTER → 2023-06-24 | Outpatient (CLI) | payer OTHER | END | disposition home or self-care (01) | LOC: US 00:21 | PROVIDERS: ATTEND Nurse Practitioner | DX: R07.89 Other chest pain (principal); R22.2 Localized swelling, mass and lump, trunk ==

== ENCOUNTER → 2023-07-02 | Outpatient (CLI) | payer OTHER | END | disposition home or self-care (01) | LOC: RAD 08:43 | PROVIDERS: ATTEND Nurse Practitioner | DX: M19.011 Primary osteoarthritis, right shoulder (principal) ==

== ENCOUNTER → 2023-07-14 | Outpatient (CLI) | payer OTHER ==
[2023-07-14 08:38] LABS: BASO % 0.3 % (0.0-1.0); EOS # 0.2 10*3/uL (0.0-0.4); EOS % 2.1 % (1.0-4.0); HEMATOCRIT 45.7 % (42.0-52.0); LYMPH # 1.3 10*3/uL (1.3-4.4); MEAN CORPUSCULAR HGB 30.5 pg (27.0-31.0); MEAN CORPUSCULAR HGB CONC 33.9 g/dl (33.0-37.0); MEAN PLATELET VOLUME 9.2 fl (9.6-12.3); MONO # 1.1 10*3/uL (0.1-1.0); MONO % 11.5 % (3.0-9.0); NEUT # 6.9 10*3/uL (2.3-7.9); NEUT % 71.2 % (47.0-73.0); PLATELET COUNT AUTOMATED 333 10*3/uL (130-400); RED BLOOD COUNT 5.08 10*6/uL (4.50-5.90); RED CELL DISTRI WIDTH 15.8 % (0-14.5); WHITE BLOOD COUNT 9.6 10*3/uL (4.8-10.8)
[2023-07-14 08:56] LABS: ALKALINE PHOSPHATASE 113 U/L (46-116); BUN 23 mg/dl (9-23); CHLORIDE 102 mmol/L (98-107); CHOLESTEROL 230 mg/dL (<200); GAMMA GLUTAMYL TRANSPEPTIDASE 42 U/L (0-73); LDL CHOLESTEROL 134 mg/dL (9-159); POTASSIUM 3.7 mmol/L (3.4-5.1); SGPT/ALT 14 U/L (10-49); TOTAL PROTEIN 6.7 gm/dL (6.0-8.0); TRIGLYCERIDES 185 mg/dl (<150)
[2023-07-16 15:07] LABS: CMV QNT Negative (Negative)
== END | disposition home or self-care (01) ==
LOC: LAB 08:07
PROVIDERS: ATTEND Nurse Practitioner Acute Care
DX: Z01.812 Encounter for preprocedural laboratory examination (principal); Z94.4 Liver transplant status; Z41.8 Encounter for other procedures for purposes other than remedying health state; E83.30 Disorder of phosphorus metabolism, unspecified; K76.9 Liver disease, unspecified; R73.02 Impaired glucose tolerance (oral); Z48.23 Encounter for aftercare following liver transplant

== ENCOUNTER → 2023-07-17 | Outpatient (CLI) | payer OTHER | END | disposition home or self-care (01) | LOC: LAB 10:32 | PROVIDERS: ATTEND Nurse Practitioner | DX: R20.0 Anesthesia of skin (principal) ==

== ENCOUNTER → 2023-08-25 | Outpatient (CLI) | payer OTHER | END | disposition home or self-care (01) | LOC: RAD 10:02 | PROVIDERS: ATTEND Nurse Practitioner | DX: M79.601 Pain in right arm (principal); S42.291A Other displaced fracture of upper end of right humerus, initial encounter for closed fracture; X58.XXXA Exposure to other specified factors, initial encounter; Y93.89 Activity, other specified; Y92.89 Other specified places as the place of occurrence of the external cause; Y99.8 Other external cause status ==

== ENCOUNTER → 2024-01-07 | Outpatient (CLI) | payer MEDICARE ==
[2024-01-07 09:18] LABS: BASO % 0.4 % (0.0-1.0); EOS # 0.2 10*3/uL (0.0-0.4); EOS % 2.2 % (1.0-4.0); HEMATOCRIT 45.9 % (42.0-52.0); LYMPH # 1.2 10*3/uL (1.3-4.4); LYMPH % 16.1 % (27.0-41.0); MEAN CELL VOLUME 92.2 fl (80.0-94.0); MEAN CORPUSCULAR HGB 30.7 pg (27.0-31.0); MEAN CORPUSCULAR HGB CONC 33.3 g/dl (33.0-37.0); MEAN PLATELET VOLUME 9.6 fl (9.6-12.3); MONO # 1.1 10*3/uL (0.1-1.0); MONO % 14.6 % (3.0-9.0); NEUT # 4.9 10*3/uL (2.3-7.9); NEUT % 66.3 % (47.0-73.0); PLATELET COUNT AUTOMATED 336 10*3/uL (130-400); RED BLOOD COUNT 4.98 10*6/uL (4.50-5.90); RED CELL DISTRI WIDTH 13.3 % (0-14.5); WHITE BLOOD COUNT 7.4 10*3/uL (4.8-10.8)
[2024-01-07 09:44] LABS: ALKALINE PHOSPHATASE 137 U/L (46-116); BUN 22 mg/dl (9-23); CHLORIDE 99 mmol/L (98-107); CHOLESTEROL 134 mg/dL (<200); GAMMA GLUTAMYL TRANSPEPTIDASE 44 U/L (0-73); LDL CHOLESTEROL 70 mg/dL (9-159); POTASSIUM 3.3 mmol/L (3.4-5.1); SGPT/ALT 25 U/L (5-49); TOTAL PROTEIN 6.8 gm/dL (6.0-8.0); TRIGLYCERIDES 75 mg/dl (<150)
[2024-01-09 17:07] LABS: CMV QNT Negative (Negative)
== END | disposition home or self-care (01) ==
LOC: LAB 08:15
PROVIDERS: ATTEND Nurse Practitioner Acute Care
DX: K76.9 Liver disease, unspecified (principal); E61.2 Magnesium deficiency; R73.02 Impaired glucose tolerance (oral); Z48.23 Encounter for aftercare following liver transplant; Z94.4 Liver transplant status; Z41.8 Encounter for other procedures for purposes other than remedying health state

== ENCOUNTER → 2024-07-12 | Outpatient (CLI) | payer MEDICARE ==
[2024-07-12 09:22] LABS: BASO # 0.1 10*3/uL (0.0-0.1); BASO % 0.7 % (0.0-1.0); EOS # 0.4 10*3/uL (0.0-0.4); EOS % 4.6 % (1.0-4.0); HEMATOCRIT 44.7 % (42.0-52.0); LYMPH # 2.3 10*3/uL (1.3-4.4); LYMPH % 27.2 % (27.0-41.0); MEAN CELL VOLUME 97.6 fl (80.0-94.0); MEAN CORPUSCULAR HGB 32.3 pg (27.0-31.0); MEAN CORPUSCULAR HGB CONC 33.1 g/dl (33.0-37.0); MEAN PLATELET VOLUME 9.1 fl (9.6-12.3); MONO # 1.2 10*3/uL (0.1-1.0); MONO % 14.2 % (3.0-9.0); NEUT # 4.4 10*3/uL (2.3-7.9); NEUT % 52.7 % (47.0-73.0); PLATELET COUNT AUTOMATED 321 10*3/uL (130-400); RED BLOOD COUNT 4.58 10*6/uL (4.50-5.90); RED CELL DISTRI WIDTH 14.1 % (0-14.5); WHITE BLOOD COUNT 8.3 10*3/uL (4.8-10.8)
[2024-07-12 09:56] LABS: ALKALINE PHOSPHATASE 146 U/L (46-116); BUN 22 mg/dl (9-23); CHLORIDE 100 mmol/L (98-107); CHOLESTEROL 139 mg/dL (<200); GAMMA GLUTAMYL TRANSPEPTIDASE 43 U/L (0-73); LDL CHOLESTEROL 65 mg/dL (9-159); POTASSIUM 3.8 mmol/L (3.4-5.1); SGPT/ALT 25 U/L (5-49); TOTAL PROTEIN 6.9 gm/dL (6.0-8.0); TRIGLYCERIDES 108 mg/dl (<150)
[2024-07-14 12:08] LABS: CMV QNT Negative (Negative)
== END | disposition home or self-care (01) ==
LOC: LAB 08:41
PROVIDERS: ATTEND Nurse Practitioner Acute Care
DX: Z01.812 Encounter for preprocedural laboratory examination (principal); K76.9 Liver disease, unspecified; Z48.23 Encounter for aftercare following liver transplant; Z94.4 Liver transplant status; Z41.8 Encounter for other procedures for purposes other than remedying health state; E61.2 Magnesium deficiency